=== PATIENT | male | born 1980 | race African-American/Black ===

== ENCOUNTER 2017-04-15 16:00 | Inpatient (IN) | payer SELFPAY ==
[~2017-04-15] VITALS: Ht 165.1 cm; Wt 92.1 kg
[2017-04-15 16:00] VITALS: O2SAT 97
[~2017-04-15 16:00] MED LIST: LACTATED RINGER'S 1000 ML INJ 2,000 ML IV ONE; NORMOSOL R INJ 3,000 ML IV ONE; PHENYLEPH/NS 1000 MCG/10 ML SYR IV ONE; PROPOFOL 200 MG/20 ML AMP IV ONE; SODIUM CHLOR 0.9% 250 ML INJ 250 ML IV ONE; SODIUM CHLORID 0.9% 500 ML INJ 500 ML IV ONE; VASOPRESSIN INJ 20 UNITS/ML VIAL IV ONE
[2017-04-15] MEDS ORDERED: MORPHINE SULFATE 8 MG/ML INJ ONE ×2 (16:05→16:12)
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
[2017-04-15] MEDS ORDERED: IOHEXOL 350 MG/ML 10 ML VIAL (for RAD DIAG) IV ONE (16:45)
[2017-04-15] MEDS ORDERED: HYDROmorphone HCL PF 1 MG/ML VIAL ONE (16:46)
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
[2017-04-15 16:57] LABS: I-STAT POTASSIUM 6.3 MMOL/L (3.5-4.9)
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
[2017-04-15] MEDS ORDERED: LACTATED RINGER'S 1000 ML INJ 1,000 ML IV SCH (17:07)
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
[2017-04-15] MEDS ORDERED: MISCELLANEOUS NURSING INFORMATION XX SCH (17:15)
[2017-04-15] MEDS ORDERED: CHLORHEXIDINE GLUCONATE 2 % 1 PACK (2 CLOTHS) TOP PRN (17:15)
[2017-04-15] MEDS ORDERED: SODIUM CHLORIDE 0.9% FLUSH 10 ML FLUSH IV FLUSH PRN (17:15)
[2017-04-15] MEDS ORDERED: MAGNESIUM HYDROXIDE SUSP 30 ML CUP PO PRN ×2 (17:15→19:00)
[2017-04-15] MEDS ORDERED: ONDANSETRON HCL 4 MG/2 ML VIAL IV PRN (17:15)
[2017-04-15 17:41] VITALS: RESP 18; O2SAT 100
[2017-04-15 17:43] VITALS: BP 145/81; PULSE 137; RESP 18; O2SAT 100
[2017-04-15] MEDS: HYDROmorphone HCL PF 1 MG/ML VIAL IVP PRN (17:45)
[2017-04-15 18:06] LABS: AUTOMATED NEUTROPHIL # 15.9 TH/MM3 (1.8-7.7); BASOPHIL # 0.1 TH/MM3 (0-0.2); BASOPHIL % 0.4 % (0.0-2.0); EOSINOPHIL % 0.1 % (0.0-4.0); HEMATOCRIT 45.5 % (39.0-51.0); LYMPH % 6.4 % (9.0-44.0); LYMPHOCYTE # 1.2 TH/MM3 (1.0-4.8); MEAN CORPUSCULAR HEMOGLOBIN 31.3 PG (27.0-34.0); MEAN CORPUSCULAR HGB CONC 32.7 % (32.0-36.0); MONO % 6.2 % (0.0-8.0); NEUT % 86.9 % (16.0-70.0); PLATELET COUNT 254 TH/MM3 (150-450); RED BLOOD COUNT 4.74 MIL/MM3 (4.50-5.90); RED CELL DISTRIBUTION WIDTH 14.1 % (11.6-17.2); WHITE BLOOD COUNT 18.4 TH/MM3 (4.0-11.0)
[2017-04-15 18:07] LABS: HEMO FLAGS AUTO DIFF
[2017-04-15] MEDS ORDERED: LORazepam 2 MG/ML VIAL IV PUSH ONE (18:30)
[2017-04-15 18:38] VITALS: BP 154/78; PULSE 144; RESP 18; O2SAT 99
[2017-04-15] MEDS ORDERED: GENTAMICIN SULFATE 80 MG/2 ML VIAL ONE ×2 (18:39→19:59)
[2017-04-15] MEDS ORDERED: SODIUM CHLORIDE 0.9% FLUSH 5 ML FLUSH IVF PRN (19:00)
[2017-04-15] MEDS ORDERED: ACETAMINOPHEN/HYDROcodone 325 MG/7.5 MG TAB PO PRN ×2 (19:00)
[2017-04-15] MEDS ORDERED: diphenhydrAMINE HCL 25 MG CAP PO PRN (19:00)
[2017-04-15] MEDS ORDERED: ONDANSETRON HCL 4 MG/2 ML VIAL IVP PRN (19:00)
[2017-04-15] MEDS ORDERED: MORPHINE SULFATE 30 MG/30 ML PCA IV SCH (19:00)
[2017-04-15] MEDS ORDERED: Post-op Orders (for Pharmacy) MISC XX ONE (19:00)
[2017-04-15] MEDS ORDERED: MISCELLANEOUS NURSING INFORMATION XX PRN (19:00)
[2017-04-15] MEDS ORDERED: MISCELLANEOUS PHARMACY INFORMATION XX ONE (19:00)
[2017-04-15] MEDS ORDERED: NALOXONE HCL 0.4 MG/ML AMP IV PRN (19:00)
[2017-04-15 19:05] LABS: SCAN/DIFF AUTO DIFF CONFIRMED
[2017-04-15 19:06] LABS: PLATELET ESTIMATE SMEAR NORMAL (NORMAL); PLATELET MORPHOLOGY CLUMPED (NORMAL)
[2017-04-15] MEDS ORDERED: HYDR-3288 PO (19:06)
[2017-04-15] MEDS ORDERED: VANCOMYCIN HCL 1000 MG VIAL ONE (19:48)
[2017-04-15 20:34] LABS: BLOOD GAS BASE EXCESS -8.6 mmol/L (-2-2); BLOOD GAS CARBOXYHEMOGLOBIN 3.8 % (0-4); BLOOD GAS HCO3 17 mmol/L (22-26); BLOOD GAS METHEMOGLOBIN 1.6 % (0-2); BLOOD GAS O2 HGB SATURATION 94 % (90-100); BLOOD GAS OXYGEN CONTENT 18.4 Vol % (12.0-20.0); BLOOD GAS PCO2 37 mmHg (38-42); BLOOD GAS PO2 231 mmHg (61-120); BLOOD GAS TOTAL HGB 13.6 G/DL (12.0-16.0); TEMP CORR TO 98.6
[2017-04-15 20:35] LABS: CRITICAL VALUE YES; FIO2 55 %; OXYGEN DEVICE O.R. GAS; STAT YES; VENT SETTINGS O.R. GAS
[2017-04-15] MEDS ORDERED: SODIUM BICARBONATE 8.4% INJ 50 MEQ/50 ML SYR ONE ×2 (20:38→21:55)
[2017-04-15 20:40] LABS: BICARBONATE 18.2 MEQ/L (21.0-32.0); POTASSIUM 4.7 MEQ/L (3.5-5.1)
[2017-04-15] MEDS ORDERED: DOCUSATE SODIUM 100 MG CAP PO SCH (21:00)
[2017-04-15 21:42] LABS: BLOOD GAS BASE EXCESS -6.6 mmol/L (-2-2); BLOOD GAS CARBOXYHEMOGLOBIN 3.4 % (0-4); BLOOD GAS HCO3 19 mmol/L (22-26); BLOOD GAS METHEMOGLOBIN 1.6 % (0-2); BLOOD GAS O2 HGB SATURATION 94 % (90-100); BLOOD GAS OXYGEN CONTENT 14.2 Vol % (12.0-20.0); BLOOD GAS PCO2 40 mmHg (38-42); BLOOD GAS PO2 210 mmHg (61-120); BLOOD GAS TOTAL HGB 10.4 G/DL (12.0-16.0); CRITICAL VALUE YES; OXYGEN DEVICE VENTILATOR; TEMP CORR TO 98.6; VENT SETTINGS OR SETTINGS
[2017-04-15 21:43] LABS: DRAW SITE ALINE; FIO2 60 %; STAT YES; ULNAR PULSE PRESENT
[2017-04-15] MEDS ORDERED: PCA - TOTAL MG MORPHINE DELIVERED PER SHIFT SCH (22:00)
[2017-04-15 22:22] LABS: APTT (PATIENT) 29.4 SEC (24.3-30.1); PROTHROMBIN TIME - PATIENT 11.6 SEC (9.8-11.6)
--- NOTE | 2017-04-15 22:22 | RADRPT ---
EXAM DATE/TIME: 04/15/2017 21:20 [facility] COMPARISON: PELVIS AP ONLY, April 15, 2017, 15:57. INDICATIONS : Right femur surgical repair. MEDICAL HISTORY : None. SURGICAL HISTORY : None. ENCOUNTER: Initial ACUITY: 1 day PAIN SCORE: Non-responsive. LOCATION: Right femur. FINDINGS: Multiple coned down views of the femur were obtained intraoperatively using a matrix camera and demon strate placement of intramedullary jodi transfixing the mid femoral fracture. The fracture fragments a re in near-anatomic alignment. There is a lag-type screw transfixing the right femoral neck fracture. Fracture fragment is in near-anatomic alignment. CONCLUSION: Status post open rigid internal fixation. Adrien León MD on April 15, 2017 at 22:19 Board Certified Radiologist. This report was verified electronically.
[2017-04-15] MEDS ORDERED: PROPOFOL 1000 MG/100 ML INJ 100 ML ONE (22:51)
[2017-04-15 23:02] VITALS: O2SAT 100
[2017-04-15] MEDS ORDERED: DO NOT ADM ANY ANTICOAGULANT DRUGS PRN (23:05)
[2017-04-15] MEDS ORDERED: fentaNYL CITRATE 250 MCG/5 ML AMP ONE (23:17)
[2017-04-15] MEDS ORDERED: *morphine SULFATE 8 MG/ML PERIprocedure ONLY ONE ×2 (23:18→23:42)
[2017-04-15] MEDS: DEXT 5%-NACL 0.45% 1000 ML INJ 1,000 ML IV SCH (23:20)
[2017-04-15] MEDS: SODIUM CHLORIDE 0.9% FLUSH 5 ML FLUSH IVF SCH (23:30)
[2017-04-15 23:35] LABS: BLOOD GAS CARBOXYHEMOGLOBIN 2.2 % (0-4); BLOOD GAS HCO3 20 mmol/L (22-26); BLOOD GAS METHEMOGLOBIN 1.4 % (0-2); BLOOD GAS O2 HGB SATURATION 94 % (90-100); BLOOD GAS OXYGEN CONTENT 17.5 Vol % (12.0-20.0); BLOOD GAS PCO2 42 mmHg (38-42); BLOOD GAS PO2 114 mmHg (61-120); BLOOD GAS TOTAL HGB 13.1 G/DL (12.0-16.0); CRITICAL VALUE YES; OXYGEN DEVICE VENTILATOR; TEMP CORR TO 98.6
[2017-04-15 23:36] LABS: DRAW SITE ART LINE; FIO2 40 %; STAT NO; VENT SETTINGS A/C12/600/+5PEEP
[2017-04-15] MEDS ORDERED: PROPOFOL 1000 MG/100 ML IV SCH (23:45)
[2017-04-15] MEDS: PROPOFOL 1000 MG/100 ML IV SCH (23:59)
[2017-04-16] VITALS (18 sets, daily range): BP systolic 130–159; BP diastolic 71–85; PULSE 112–132; RESP 12–21; TEMP 98.5–99.3; O2SAT 97–100
[2017-04-16] MEDS ORDERED: *morphine SULFATE 8 MG/ML PERIprocedure ONLY ONE (00:05)
--- NOTE | 2017-04-16 00:13 | RADRPT ---
EXAM DATE/TIME: 04/15/2017 23:49 [facility] COMPARISON: CHEST SINGLE AP, April 15, 2017, 15:57. INDICATIONS : Post intubation, following femur surgery. MEDICAL HISTORY : None. SURGICAL HISTORY : None. ENCOUNTER: Initial ACUITY: 1 day PAIN SCORE: Non-responsive. LOCATION: Bilateral chest FINDINGS: A single view of the chest demonstrates the lungs to be symmetrically aerated without evidence of mas s, infiltrate or effusion. The cardiomediastinal contours are unremarkable. Osseous structures are intact. CONCLUSION: Normal examination. The endotracheal tube has been placed with its tip at the level of the parish. Reggie Waggoner MD on April 16, 2017 at 0:11 Board Certified Radiologist. This report was verified electronically.
[2017-04-16] MEDS: PROPOFOL 1000 MG/100 ML IV SCH (03:14)
[2017-04-16 03:58] LABS: AUTOMATED NEUTROPHIL # 6.2 TH/MM3 (1.8-7.7); BASOPHIL % 0.2 % (0.0-2.0); HEMATOCRIT 39.8 % (39.0-51.0); HEMO FLAGS DIFF FINAL; LYMPH % 13.8 % (9.0-44.0); LYMPHOCYTE # 1.1 TH/MM3 (1.0-4.8); MEAN CELL VOLUME 91.6 FL (80.0-100.0); MEAN CORPUSCULAR HEMOGLOBIN 31.7 PG (27.0-34.0); MEAN CORPUSCULAR HGB CONC 34.7 % (32.0-36.0); MONO % 8.9 % (0.0-8.0); NEUT % 77.1 % (16.0-70.0); PLATELET COUNT 177 TH/MM3 (150-450); RED BLOOD COUNT 4.35 MIL/MM3 (4.50-5.90); RED CELL DISTRIBUTION WIDTH 14.6 % (11.6-17.2)
[2017-04-16] MEDS: CHLORHEXIDINE GLUCONATE 2 % 1 PACK (2 CLOTHS) TOP SCH (04:00)
[2017-04-16 04:21] LABS: BICARBONATE 27.1 MEQ/L (21.0-32.0); POTASSIUM 4.6 MEQ/L (3.5-5.1)
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
[2017-04-16 04:44] LABS: CALCIUM-PROTEIN CORRECTED 8.3 MG/DL (8.5-10.1)
[2017-04-16] MEDS ORDERED: fentaNYL DRIP 250 ML IV SCH (05:15)
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
[2017-04-16] MEDS: DEXT 5%-NACL 0.45% 1000 ML INJ 1,000 ML IV SCH ×2 (06:21→16:26)
--- NOTE | 2017-04-16 07:11 | PD.ORT.PN ---
Subjective Subjective Remarks Intubated and sedated Objective Vitals Vital Signs Date Time Temp Pulse Resp B/P Pulse Ox O2 Delivery O2 Flow Rate FiO2 04/16/17 06:00 116 04/16/17 05:23 100 40 04/16/17 04:00 115 04/16/17 04:00 98.5 115 12 130/71 100 04/16/17 02:00 118 04/16/17 01:28 100 04/16/17 01:00 98.7 122 12 155/79 100 04/16/17 01:00 124 04/16/17 00:35 100 40 04/16/17 00:15 40 04/16/17 00:15 123 12 168/77 100 Mechanical Ventilator 40 170/81 04/16/17 00:00 99.0 125 12 166/74 100 Mechanical Ventilator 40 174/79 04/15/17 23:45 127 12 154/72 100 Mechanical Ventilator 40 167/73 04/15/17 23:30 127 13 159/74 100 Mechanical Ventilator 40 137/75 04/15/17 23:15 124 16 141/62 100 Mechanical Ventilator 40 149/71 04/15/17 23:05 40 04/15/17 23:05 98.5 117 14 139/61 100 Mechanical Ventilator 40 04/15/17 23:02 100 40 04/15/17 18:38 144 18 154/78 99 Room Air 04/15/17 17:43 137 18 145/81 100 Nasal Cannula 2 04/15/17 17:41 18 100 Room Air 04/15/17 17:41 99 Nasal Cannula 2 04/15/17 16:00 97 2.00 I/O 04/15/17 04/15/17 04/15/17 04/16/17 04/16/17 04/16/17 07:00 15:00 23:00 07:00 15:00 23:00 Intake Total 6379 ml Output Total 4350 ml Balance 2029 ml Intake Oral 0 ml IV Total 1479 ml Packed Cells 500 ml Other 4400 ml Output Urine Total 3050 ml Estimated Blood Loss 700 ml Other 600 ml Result Diagram: 04/16/17 0332 04/16/17 0332 Other Results Laboratory Tests Test 04/15/17 21:45 Prothrombin Time 11.6 SEC (9.8-11.6) Prothromb Time International 1.0 RATIO Ratio Imaging Last 24 hours Impressions Pelvis X-Ray 04/15/171620 Signed Impressions: Service Date/Time: Saturday, April 15, 2017 15:57 - CONCLUSION: Right femoral neck fracture. Vinicius Mccray MD Head CT 04/15/171620 Signed Impressions: Service Date/Time: Saturday, April 15, 2017 16:34 - CONCLUSION: 1. Chronic sinusitis. 2. No acute intracranial process, trauma or fracture. Vinicius Mccray MD Chest X-Ray 04/15/171620 Signed Impressions: Service Date/Time: Saturday, April 15, 2017 15:57 - CONCLUSION: No acute cardiopulmonary process. Vinicius Mccray MD Chest CT 04/15/171620 Signed Impressions: Service Date/Time: Saturday, April 15, 2017 16:40 - CONCLUSION: 1. Patchy air space disease in the superior segment of both lower lobes, left worse than right. Findings are nonspecific and could represent pulmonary parenchymal contusions or early aspiration. 2. No acute thoracic fracture. Mediastinal vasculature is all intact. Vinicius Mccray MD Cervical Spine CT 04/15/171620 Signed Impressions: Service Date/Time: Saturday, April 15, 2017 16:34 - CONCLUSION: 1. Mild multilevel degenerative disc disease from C4-5 through C6-7 with some loss of height and marginal spurring. 2. No acute fracture or listhesis. Vinicius Mccray MD Abdomen/Pelvis CT 04/15/171620 Signed Impressions: Service Date/Time: Saturday, April 15, 2017 16:40 - CONCLUSION: 1. Displaced, simple fracture through the right femoral neck with apparent multiple fractures of the right hand and wrist. 2. Patchy airspace disease in the superior segments of both lower lobes. Findings are nonspecific and could represent pulmonary parenchymal contusion or early aspiration. 3. No acute abdominal or pelvic visceral trauma. Vinicius Mccray MD Objective Remarks Patient is intubated and sedated Right upper extremity: Clean dry dressings intact. Good capillary refills. Unable to assess active movement or sensation Right lower extremity: Clean dry dressings intact. Compartments with swelling but soft. Distally intact sensation good capillary refills Left upper extremity: No crepitus or deformity with range of motion. Good distal pulses and capillary refills Left lower extremity: No deformity with range of motion of hip knee or ankle. Intact distal pulses and capillary refills Assessment & Plan Assessment and Plan Right open forearm fracture with irrigation debridement and splinting POD 1 Maintain splint and plan for surgery tomorrow with Dr. Biswas on 04/16/2017 Right femoral neck and femoral shaft fractures status post intramedullary nail fixation POD [address] German Nonweightbearing right lower extremity Daily dressing changes beginning POD 2 Nothing by mouth after midnight for surgery of right forearm Sign consents Patient's right forearm marked Adrien Paris Jr. Apr 16, 2017 07:11
[2017-04-16] MEDS: HYDROmorphone HCL PF 1 MG/ML VIAL IVP PRN ×3 (07:59→18:45)
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
[2017-04-16] MEDS: DOCUSATE SODIUM 50 MG/SENNA 8.6 MG TAB PO SCH ×3 (11:44→20:46)
[2017-04-16] MEDS: SODIUM CHLORIDE 0.9% FLUSH 5 ML FLUSH IVF SCH ×2 (11:45→20:46)
[2017-04-16] MEDS: MULTIVITAMINS/MINERALS THERAPEUTIC TAB PO SCH (11:45)
[2017-04-16] MEDS: BACITRACIN TOP OINT 15 GM TUBE TOP SCH ×3 (11:45→20:47)
[2017-04-16] MEDS ORDERED: RESP: ALBUTEROL 2.5 MG/3 ML NEB (PRN) NEB (12:45)
[2017-04-16] MEDS ORDERED: GLUCAGON 1 MG/ML VIAL OTHER PRN (13:00)
[2017-04-16] MEDS ORDERED: DEXTROSE 50% IN WATER 50 ML VIAL(D50) IV PRN (13:00)
--- NOTE | 2017-04-16 13:01 | PD.ORT.PN ---
Subjective Post Op Day #: 1 Subjective Remarks hard time getting comfortable. doing ok. extubated earlier today. Objective Vitals Vital Signs Date Time Temp Pulse Resp B/P Pulse Ox O2 Delivery O2 Flow Rate FiO2 04/16/17 12:00 121 04/16/17 12:00 98.5 121 21 142/75 98 04/16/17 10:45 15 04/16/17 10:00 121 04/16/17 09:36 99 Nasal Cannula 4.00 04/16/17 09:36 99 Nasal Cannula 4 04/16/17 08:50 100 40 04/16/17 08:00 112 04/16/17 08:00 40 04/16/17 08:00 99.3 112 12 139/73 100 04/16/17 07:25 100 40 04/16/17 07:00 100 Mechanical Ventilator 40 04/16/17 06:00 116 04/16/17 05:23 100 40 04/16/17 04:00 115 04/16/17 04:00 98.5 115 12 130/71 100 04/16/17 02:00 118 04/16/17 01:28 100 04/16/17 01:00 98.7 122 12 155/79 100 04/16/17 01:00 40 04/16/17 01:00 124 04/16/17 00:35 100 40 04/16/17 00:15 40 04/16/17 00:15 123 12 168/77 100 Mechanical Ventilator 40 170/81 04/16/17 00:00 99.0 125 12 166/74 100 Mechanical Ventilator 40 174/79 04/15/17 23:45 127 12 154/72 100 Mechanical Ventilator 40 167/73 04/15/17 23:30 127 13 159/74 100 Mechanical Ventilator 40 137/75 04/15/17 23:15 124 16 141/62 100 Mechanical Ventilator 40 149/71 04/15/17 23:05 40 04/15/17 23:05 98.5 117 14 139/61 100 Mechanical Ventilator 40 04/15/17 23:02 100 40 04/15/17 18:38 144 18 154/78 99 Room Air 04/15/17 17:43 137 18 145/81 100 Nasal Cannula 2 04/15/17 17:41 18 100 Room Air 04/15/17 17:41 99 Nasal Cannula 2 04/15/17 16:00 97 Nasal Cannula 2.00 04/15/17 16:00 97 2.00 I/O 04/15/17 04/15/17 04/15/17 04/16/17 04/16/17 04/16/17 07:00 15:00 23:00 07:00 15:00 23:00 Intake Total 6379 ml Output Total 4350 ml Balance 2029 ml Intake Oral 0 ml IV Total 1479 ml Packed Cells 500 ml Other 4400 ml Output Urine Total 3050 ml Estimated Blood Loss 700 ml Other 600 ml Result Diagram: 04/16/17 0332 04/16/17 0332 Other Results Laboratory Tests Test 04/15/17 21:45 Prothrombin Time 11.6 SEC (9.8-11.6) Prothromb Time International 1.0 RATIO Ratio Imaging Last 24 hours Impressions Pelvis X-Ray 04/15/171620 Signed Impressions: Service Date/Time: Saturday, April 15, 2017 15:57 - CONCLUSION: Right femoral neck fracture. Vinicius Mccray MD Head CT 04/15/171620 Signed Impressions: Service Date/Time: Saturday, April 15, 2017 16:34 - CONCLUSION: 1. Chronic sinusitis. 2. No acute intracranial process, trauma or fracture. Vinicius Mccray MD Chest X-Ray 04/15/171620 Signed Impressions: Service Date/Time: Saturday, April 15, 2017 15:57 - CONCLUSION: No acute cardiopulmonary process. Vinicius Mccray MD Chest CT 04/15/171620 Signed Impressions: Service Date/Time: Saturday, April 15, 2017 16:40 - CONCLUSION: 1. Patchy air space disease in the superior segment of both lower lobes, left worse than right. Findings are nonspecific and could represent pulmonary parenchymal contusions or early aspiration. 2. No acute thoracic fracture. Mediastinal vasculature is all intact. Vinicius Mccray MD Cervical Spine CT 04/15/171620 Signed Impressions: Service Date/Time: Saturday, April 15, 2017 16:34 - CONCLUSION: 1. Mild multilevel degenerative disc disease from C4-5 through C6-7 with some loss of height and marginal spurring. 2. No acute fracture or listhesis. Vinicius Mccray MD Abdomen/Pelvis CT 7/9/17 1621 Signed Impressions: Service Date/Time: Saturday, April 15, 2017 16:40 - CONCLUSION: 1. Displaced, simple fracture through the right femoral neck with apparent multiple fractures of the right hand and wrist. 2. Patchy airspace disease in the superior segments of both lower lobes. Findings are nonspecific and could represent pulmonary parenchymal contusion or early aspiration. 3. No acute abdominal or pelvic visceral trauma. Vinicius Mccray MD Objective Remarks in bed, nad Right upper extremity: Clean dry dressings intact. Good capillary refills. able to flex/extend all 5 fingers, sensation intact Right lower extremity: Clean dry dressings intact. Compartments with swelling but soft. Distally intact sensation good capillary refills Left upper extremity: No crepitus or deformity with range of motion. Good distal pulses and capillary refills Left lower extremity: No deformity with range of motion of hip knee or ankle. Intact distal pulses and capillary refills Assessment & Plan Ortho Post Op Day #: 1 Problem List: Assessment and Plan Right open forearm fracture with irrigation debridement and splinting POD 1 Maintain splint and plan for surgery tomorrow with Dr. Biswas on 04/16/2017 Right femoral neck and femoral shaft fractures status post intramedullary nail fixation POD [address] German Nonweightbearing right lower extremity Daily dressing changes beginning POD 2 Nothing by mouth after midnight for surgery of right forearm Sign consents med management Brant Preciado Apr 16, 2017 13:01
--- NOTE | 2017-04-16 13:08 | HHI.CCPN ---
Subjective 24 Hour Review/Hospital Course S/p [facility] [place] 1 Closed right femoral neck fracture Open right femoral midshaft fracture Right knee laceration - repaired by Dr. German 04/15 I&D and ORIF with IM nail right femoral shaft, ORIF right femoral neck 04/15 Dr. German Open displaced right ulnar fracture - open reduction right distal radius and ulnar fracture with I and D and splint placment 04/15 Dr. German , Closed right distal radius fracture ORIF R wrist plan by ortho SBT/SBA stable overall CCM working on extubation Objective Vital Signs Date Time Temp Pulse Resp B/P Pulse Ox O2 Delivery O2 Flow Rate FiO2 04/16/17 12:00 121 04/16/17 12:00 98.5 21 142/75 98 04/16/17 09:36 Nasal Cannula 4.00 04/16/17 08:50 40 Intake and Output 04/15/17 04/15/17 04/16/17 08:00 16:00 00:00 Intake Total 5500 ml Output Total 2450 ml Balance 3050 ml Result Diagram: 04/16/17 0332 04/16/17 0332 Other Results Laboratory Tests Test 04/15/17 04/15/17 04/15/17 20:15 21:25 23:21 Blood Gas Puncture Site REYNALDO ART LINE Blood Gas Patient Temperature 98.6 98.6 98.6 Blood Gas HCO3 17 mmol/L 19 mmol/L 20 mmol/L (22-26) (22-26) (22-26) Blood Gas Base Excess -8.6 mmol/L -6.6 mmol/L -6.0 mmol/L (-2-2) (-2-2) (-2-2) Blood Gas Oxygen Saturation 94 % (90-100) 94 % (90-100) 94 % (90-100) Arterial Blood pH 7.28 7.29 7.29 (7.380-7.420) (7.380-7.420) (7.380-7.420) Arterial Blood Partial 37 mmHg (38-42) 40 mmHg (38-42) 42 mmHg (38-42) Pressure CO2 Arterial Blood Partial 231 mmHg 210 mmHg 114 mmHg Pressure O2 (61-120) (61-120) (61-120) Arterial Blood Oxygen Content 18.4 Vol % 14.2 Vol % 17.5 Vol % (12.0-20.0) (12.0-20.0) (12.0-20.0) Arterial Blood 3.8 % (0-4) 3.4 % (0-4) 2.2 % (0-4) Carboxyhemoglobin Arterial Blood Methemoglobin 1.6 % (0-2) 1.6 % (0-2) 1.4 % (0-2) Blood Gas Hemoglobin 13.6 G/DL 10.4 G/DL 13.1 G/DL (12.0-16.0) (12.0-16.0) (12.0-16.0) Oxygen Delivery Device O.R. GAS VENTILATOR VENTILATOR Blood Gas Ventilator Setting O.R. GAS OR SETTINGS A/C12/600/+5PEEP Blood Gas Inspired Oxygen 55 % 60 % 40 % Imaging Last 24 hours Impressions Pelvis X-Ray 04/15/171620 Signed Impressions: Service Date/Time: Saturday, April 15, 2017 15:57 - CONCLUSION: Right femoral neck fracture. Vinicius Mccray MD Head CT 04/15/171620 Signed Impressions: Service Date/Time: Saturday, April 15, 2017 16:34 - CONCLUSION: 1. Chronic sinusitis. 2. No acute intracranial process, trauma or fracture. Vinicius Mccray MD Chest X-Ray 04/15/171620 Signed Impressions: Service Date/Time: Saturday, April 15, 2017 15:57 - CONCLUSION: No acute cardiopulmonary process. Vinicius Mccray MD Chest CT 04/15/171620 Signed Impressions: Service Date/Time: Saturday, April 15, 2017 16:40 - CONCLUSION: 1. Patchy air space disease in the superior segment of both lower lobes, left worse than right. Findings are nonspecific and could represent pulmonary parenchymal contusions or early aspiration. 2. No acute thoracic fracture. Mediastinal vasculature is all intact. Vinicius Mccray MD Cervical Spine CT 04/15/171620 Signed Impressions: Service Date/Time: Saturday, April 15, 2017 16:34 - CONCLUSION: 1. Mild multilevel degenerative disc disease from C4-5 through C6-7 with some loss of height and marginal spurring. 2. No acute fracture or listhesis. Vinicius Mccray MD Abdomen/Pelvis CT 7/9/17 1621 Signed Impressions: Service Date/Time: Saturday, April 15, 2017 16:40 - CONCLUSION: 1. Displaced, simple fracture through the right femoral neck with apparent multiple fractures of the right hand and wrist. 2. Patchy airspace disease in the superior segments of both lower lobes. Findings are nonspecific and could represent pulmonary parenchymal contusion or early aspiration. 3. No acute abdominal or pelvic visceral trauma. Vinicius Mccray MD Exam DIRECTOR OF MARKETING GCS 11 T Hemodynamic/Cardiac BP -stable Pulmonary/Respiratory CPAP/PS Abdomen/GI Nutrition NPO-diet after extubation Renal/I&O uo adequat Urinary Catheter Assessment Urinary Catheter: Yes Assessment to: Remove Assessment and Plan Plan multiple open orthopedic injuries s/p ORIF femur fx planned ORIF left wrist Extubate in am Pain control DVT prophylaxis ABX for open fx Plan transfer floor later in AM Nay Whitfield MD Apr 16, 2017 13:08
[2017-04-16] MEDS ORDERED: LORazepam 0.5 MG TAB PO ONE (16:30)
[2017-04-16] MEDS: INSULIN ASPART SUPPLEMENTAL SCALE SQ SCH ×2 (17:51→20:46)
[2017-04-16] MEDS ORDERED: MORPHINE SULFATE 4 MG/ML INJ IV PUSH PRN (18:00)
[2017-04-16] MEDS: FAMOTIDINE 20 MG TAB PO SCH (20:46)
[2017-04-16] MEDS ORDERED: ENOXAPARIN SODIUM 40 MG/0.4 ML SYRINGE SQ SCH (22:00)
[2017-04-17] VITALS (16 sets, daily range): BP systolic 128–164; BP diastolic 62–77; PULSE 91–130; RESP 24–28; TEMP 98.8–99.6; O2SAT 93–100
[2017-04-17] MEDS: CHLORHEXIDINE GLUCONATE 2 % 1 PACK (2 CLOTHS) TOP SCH (04:00)
--- NOTE | 2017-04-17 05:52 | RADRPT ---
EXAM DATE/TIME: 04/17/2017 04:56 [place] COMPARISON: CHEST SINGLE AP, April 15, 2017, 23:49. INDICATIONS : Short of breath. MEDICAL HISTORY : None. SURGICAL HISTORY : None. ENCOUNTER: Subsequent ACUITY: 3 days PAIN SCORE: Non-responsive. LOCATION: Bilateral chest FINDINGS: Mild bibasilar atelectasis noted. No pleural effusion or pneumothorax. Endotracheal tube has been rem marian. Normal, stable heart size. CONCLUSION: Interim extubation. Trace bibasilar atelectasis. Sam Rogers MD on April 17, 2017 at 5:50 Board Certified Radiologist. This report was verified electronically.
[2017-04-17 06:33] LABS: AUTOMATED NEUTROPHIL # 7.9 TH/MM3 (1.8-7.7); BASOPHIL % 0.3 % (0.0-2.0); EOSINOPHIL # 0.1 TH/MM3 (0-0.4); EOSINOPHIL % 0.6 % (0.0-4.0); HEMATOCRIT 32.9 % (39.0-51.0); HEMO FLAGS DIFF FINAL; LYMPH % 11.9 % (9.0-44.0); LYMPHOCYTE # 1.2 TH/MM3 (1.0-4.8); MEAN CELL VOLUME 92.8 FL (80.0-100.0); MEAN CORPUSCULAR HEMOGLOBIN 31.5 PG (27.0-34.0); MEAN CORPUSCULAR HGB CONC 33.9 % (32.0-36.0); MONO % 9.7 % (0.0-8.0); NEUT % 77.5 % (16.0-70.0); PLATELET COUNT 155 TH/MM3 (150-450); RED BLOOD COUNT 3.54 MIL/MM3 (4.50-5.90); RED CELL DISTRIBUTION WIDTH 14.9 % (11.6-17.2); WHITE BLOOD COUNT 10.2 TH/MM3 (4.0-11.0)
[2017-04-17 06:48] LABS: ALKALINE PHOSPHATASE 47 U/L (45-117); ALT (GPT) 77 U/L (12-78); ANION GAP 4 MEQ/L (5-15); AST (GOT) 348 U/L (15-37); BICARBONATE 25.7 MEQ/L (21.0-32.0); BLOOD UREA NITROGEN 8 MG/DL (7-18); CHLORIDE 104 MEQ/L (98-107); GLOMERULAR FILTRATION RATE 101 ML/MIN (>89); POTASSIUM 4.1 MEQ/L (3.5-5.1); SODIUM (NA) 134 MEQ/L (136-145); TOTAL BILIRUBIN ADULT 0.6 MG/DL (0.2-1.0)
[2017-04-17 06:51] LABS: APTT (PATIENT) 35.2 SEC (24.3-30.1); PROTHROMBIN TIME - PATIENT 11.2 SEC (9.8-11.6)
[2017-04-17] MEDS: INSULIN ASPART SUPPLEMENTAL SCALE SQ SCH ×4 (07:00→21:00)
[2017-04-17] MEDS: ENOXAPARIN SODIUM 30 MG/0.3 ML SYRINGE SQ SCH ×2 (07:21→20:35)
[2017-04-17] MEDS: MULTIVITAMINS/MINERALS THERAPEUTIC TAB PO SCH (07:46)
[2017-04-17] MEDS: DOCUSATE SODIUM 50 MG/SENNA 8.6 MG TAB PO SCH ×2 (07:46→20:35)
[2017-04-17] MEDS: SODIUM CHLORIDE 0.9% FLUSH 5 ML FLUSH IVF SCH ×2 (07:47→20:35)
[2017-04-17] MEDS: FAMOTIDINE 20 MG TAB PO SCH ×2 (07:47→20:35)
[2017-04-17] MEDS: HYDROmorphone HCL PF 1 MG/ML VIAL IVP PRN (07:47)
--- NOTE | 2017-04-17 07:51 | PD.ORT.PN ---
Subjective Subjective Remarks Awake and alert Stable with no new complaints Objective Vitals Vital Signs Date Time Temp Pulse Resp B/P Pulse Ox O2 Delivery O2 Flow Rate FiO2 04/17/17 07:22 97 Nasal Cannula 2.00 04/17/17 06:00 122 04/17/17 04:58 20 04/17/17 04:00 130 04/17/17 04:00 99.2 130 24 164/74 97 04/17/17 02:00 124 04/17/17 00:00 99.2 130 24 162/77 97 04/17/17 00:00 130 04/16/17 22:00 126 04/16/17 22:00 20 04/16/17 20:48 97 Nasal Cannula 2.00 04/16/17 20:00 132 04/16/17 20:00 99.2 132 21 159/77 97 04/16/17 19:15 26 04/16/17 19:00 96 Nasal Cannula 2.00 04/16/17 16:00 98.6 124 17 149/85 98 Arterial Line 04/16/17 16:00 124 04/16/17 14:00 16 04/16/17 14:00 124 04/16/17 14:00 16 04/16/17 12:00 121 04/16/17 12:00 98.5 121 21 142/75 98 04/16/17 10:45 15 04/16/17 10:00 121 04/16/17 09:36 99 Nasal Cannula 4.00 04/16/17 09:36 99 Nasal Cannula 4 04/16/17 08:50 100 40 04/16/17 08:00 112 04/16/17 08:00 40 04/16/17 08:00 99.3 112 12 139/73 100 I/O 04/16/17 04/16/17 04/16/17 04/17/17 04/17/17 04/17/17 07:00 15:00 23:00 07:00 15:00 23:00 Intake Total 6379 ml 1164 ml 1006 ml 284 ml Output Total 4350 ml 400 ml 500 ml 625 ml Balance 2029 ml 764 ml 506 ml -341 ml Intake Oral 0 ml 350 ml 240 ml IV Total 1479 ml 814 ml 766 ml 284 ml Packed Cells 500 ml Other 4400 ml Output Urine Total 3050 ml 400 ml 500 ml 625 ml Estimated Blood Loss 700 ml Other 600 ml Result Diagram: 04/17/17 0557 04/17/17 0557 Other Results Laboratory Tests Test 04/17/17 05:57 Prothrombin Time 11.2 SEC (9.8-11.6) Prothromb Time International 1.0 RATIO Ratio Imaging Last 24 hours Impressions Pelvis X-Ray 04/15/171620 Signed Impressions: Service Date/Time: Saturday, April 15, 2017 15:57 - CONCLUSION: Right femoral neck fracture. Vinicius Mccray MD Head CT 04/15/171620 Signed Impressions: Service Date/Time: Saturday, April 15, 2017 16:34 - CONCLUSION: 1. Chronic sinusitis. 2. No acute intracranial process, trauma or fracture. Vinicius Mccray MD Chest X-Ray 04/15/171620 Signed Impressions: Service Date/Time: Saturday, April 15, 2017 15:57 - CONCLUSION: No acute cardiopulmonary process. Vinicius Mccray MD Chest CT 04/15/171620 Signed Impressions: Service Date/Time: Saturday, April 15, 2017 16:40 - CONCLUSION: 1. Patchy air space disease in the superior segment of both lower lobes, left worse than right. Findings are nonspecific and could represent pulmonary parenchymal contusions or early aspiration. 2. No acute thoracic fracture. Mediastinal vasculature is all intact. Vinicius Mccray MD Cervical Spine CT 04/15/171620 Signed Impressions: Service Date/Time: Saturday, April 15, 2017 16:34 - CONCLUSION: 1. Mild multilevel degenerative disc disease from C4-5 through C6-7 with some loss of height and marginal spurring. 2. No acute fracture or listhesis. Vinicius Mccray MD Abdomen/Pelvis CT 04/15/171620 Signed Impressions: Service Date/Time: Saturday, April 15, 2017 16:40 - CONCLUSION: 1. Displaced, simple fracture through the right femoral neck with apparent multiple fractures of the right hand and wrist. 2. Patchy airspace disease in the superior segments of both lower lobes. Findings are nonspecific and could represent pulmonary parenchymal contusion or early aspiration. 3. No acute abdominal or pelvic visceral trauma. Vinicius Mccray MD Objective Remarks in bed, nad Right upper extremity: Clean dry dressings intact. Good capillary refills. able to flex/extend all 5 fingers, sensation intact Right lower extremity: Clean dry dressings intact. Compartments with swelling but soft. Distally intact sensation good capillary refills Left upper extremity: No crepitus or deformity with range of motion. Good distal pulses and capillary refills Left lower extremity: No deformity with range of motion of hip knee or ankle. Intact distal pulses and capillary refills Assessment & Plan Assessment and Plan Right open forearm fracture with irrigation debridement and splinting POD 2 Maintain splint and plan for surgery today with Dr. Biswas Right femoral neck and femoral shaft fractures status post intramedullary nail fixation POD [address] German Nonweightbearing right lower extremity Daily dressing changes beginning POD 2 Nothing by mouth Sign consents med management Adrien Paris Jr. Apr 17, 2017 07:51
[2017-04-17] MEDS: BACITRACIN TOP OINT 15 GM TUBE TOP SCH ×3 (08:27→21:00)
--- NOTE | 2017-04-17 09:30 | PD.ORT.PN ---
Subjective Post Op Day #: 2 Subjective Remarks hard time getting comfortable. doing ok. sx scheduled for today for R arm Objective Vitals Vital Signs Date Time Temp Pulse Resp B/P Pulse Ox O2 Delivery O2 Flow Rate FiO2 04/17/17 08:00 95 Nasal Cannula 2.00 04/17/17 07:22 97 Nasal Cannula 2.00 04/17/17 06:00 122 04/17/17 04:58 20 04/17/17 04:00 130 04/17/17 04:00 99.2 130 24 164/74 97 04/17/17 02:00 124 04/17/17 00:00 99.2 130 24 162/77 97 04/17/17 00:00 130 04/16/17 22:00 126 04/16/17 22:00 20 04/16/17 20:48 97 Nasal Cannula 2.00 04/16/17 20:00 132 04/16/17 20:00 99.2 132 21 159/77 97 04/16/17 19:15 26 04/16/17 19:00 96 Nasal Cannula 2.00 04/16/17 16:00 98.6 124 17 149/85 98 Arterial Line 04/16/17 16:00 124 04/16/17 14:00 16 04/16/17 14:00 124 04/16/17 14:00 16 04/16/17 12:00 121 04/16/17 12:00 98.5 121 21 142/75 98 04/16/17 10:45 15 04/16/17 10:00 121 04/16/17 09:36 99 Nasal Cannula 4.00 04/16/17 09:36 99 Nasal Cannula 4 I/O 04/16/17 04/16/17 04/16/17 04/17/17 04/17/17 04/17/17 07:00 15:00 23:00 07:00 15:00 23:00 Intake Total 6379 ml 1164 ml 1006 ml 284 ml Output Total 4350 ml 400 ml 500 ml 625 ml Balance 2029 ml 764 ml 506 ml -341 ml Intake Oral 0 ml 350 ml 240 ml IV Total 1479 ml 814 ml 766 ml 284 ml Packed Cells 500 ml Other 4400 ml Output Urine Total 3050 ml 400 ml 500 ml 625 ml Estimated Blood Loss 700 ml Other 600 ml Result Diagram: 04/17/17 0557 04/17/17 0557 Other Results Laboratory Tests Test 04/17/17 05:57 Prothrombin Time 11.2 SEC (9.8-11.6) Prothromb Time International 1.0 RATIO Ratio Imaging Last 24 hours Impressions Pelvis X-Ray 04/15/171620 Signed Impressions: Service Date/Time: Saturday, April 15, 2017 15:57 - CONCLUSION: Right femoral neck fracture. Vinicius Mccray MD Head CT 04/15/171620 Signed Impressions: Service Date/Time: Saturday, April 15, 2017 16:34 - CONCLUSION: 1. Chronic sinusitis. 2. No acute intracranial process, trauma or fracture. Vinicius Mccray MD Chest X-Ray 04/15/171620 Signed Impressions: Service Date/Time: Saturday, April 15, 2017 15:57 - CONCLUSION: No acute cardiopulmonary process. Vinicius Mccray MD Chest CT 04/15/171620 Signed Impressions: Service Date/Time: Saturday, April 15, 2017 16:40 - CONCLUSION: 1. Patchy air space disease in the superior segment of both lower lobes, left worse than right. Findings are nonspecific and could represent pulmonary parenchymal contusions or early aspiration. 2. No acute thoracic fracture. Mediastinal vasculature is all intact. Vinicius Mccray MD Cervical Spine CT 04/15/171620 Signed Impressions: Service Date/Time: Saturday, April 15, 2017 16:34 - CONCLUSION: 1. Mild multilevel degenerative disc disease from C4-5 through C6-7 with some loss of height and marginal spurring. 2. No acute fracture or listhesis. Vinicius Mccray MD Abdomen/Pelvis CT 04/15/171620 Signed Impressions: Service Date/Time: Saturday, April 15, 2017 16:40 - CONCLUSION: 1. Displaced, simple fracture through the right femoral neck with apparent multiple fractures of the right hand and wrist. 2. Patchy airspace disease in the superior segments of both lower lobes. Findings are nonspecific and could represent pulmonary parenchymal contusion or early aspiration. 3. No acute abdominal or pelvic visceral trauma. Vinicius Mccray MD Objective Remarks in bed, nad Right upper extremity: Clean dry dressings intact. Good capillary refills. able to flex/extend all 5 fingers, sensation intact Right lower extremity: Clean dry dressings intact. Compartments with swelling but soft. Distally intact sensation good capillary refills Left upper extremity: No crepitus or deformity with range of motion. Good distal pulses and capillary refills Left lower extremity: No deformity with range of motion of hip knee or ankle. Intact distal pulses and capillary refills Assessment & Plan Ortho Post Op Day #: 2 Problem List: Assessment and Plan Right open forearm fracture with irrigation debridement and splinting POD 2 Maintain splint and plan for surgery today with Dr. Anaya Right femoral neck and femoral shaft fractures status post intramedullary nail fixation; I&D R knee with closure of laceration POD [address] German Nonweightbearing right lower extremity Daily dressing changes beginning POD 2 Nothing by mouth Sign consents - sx today for R forearm Dr. Anaya med management Brant Preciado Apr 17, 2017 09:30
[2017-04-17] MEDS ORDERED: KETOROLAC TROMETHAMINE 60 MG/2 ML (IM) VIAL IM ONE (10:40)
[2017-04-17] MEDS ORDERED: NEOSTIGMINE 3 MG/3 ML SYR IV ONE (10:40)
[2017-04-17] MEDS ORDERED: PROPOFOL 200 MG/20 ML AMP IV ONE (10:40)
[2017-04-17] MEDS ORDERED: ONDANSETRON HCL 4 MG/2 ML VIAL IV PUSH ONE (10:41)
[2017-04-17] MEDS ORDERED: LACTATED RINGER'S 1000 ML INJ 1,000 ML IV ONE (10:41)
[2017-04-17] MEDS ORDERED: SODIUM CHLOR 0.9% 1000 ML INJ 1,000 ML IV SCH (10:45)
[2017-04-17] MEDS ORDERED: VANCOMYCIN HCL 1000 MG VIAL ONE (12:34)
[2017-04-17] MEDS ORDERED: GENTAMICIN SULFATE 80 MG/2 ML VIAL ONE (12:34)
[2017-04-17] MEDS ORDERED: SODIUM CHLOR 0.9% 250 ML INJ 250 ML ONE (12:34)
[2017-04-17] MEDS ORDERED: ceFAZolin 2 GM PREMIX 50 ML ONE (12:36)
[2017-04-17] MEDS ORDERED: MIDAZOLAM HCL 2 MG/2 ML VIAL ONE (14:29)
[2017-04-17] MEDS ORDERED: ACETAMINOPHEN 1000 MG/100 ML VIAL IV ONE (14:33)
[2017-04-17] MEDS ORDERED: HYDROmorphone HCL PF 2 MG/ML VIAL ONE (15:01)
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
[2017-04-17] MEDS ORDERED: LACTATED RINGER'S 1000 ML INJ 1,000 ML IV SCH (16:27)
[2017-04-17] MEDS ORDERED: BACITRACIN OPHT OINT 3.5 GM TUBO ONE (16:27)
--- NOTE | 2017-04-17 16:36 | PD.OP ---
cc: Alfredito Biswas MD Operative Report Date of Surgery: Apr 17, 2017 Preoperative Diagnosis: Open right radius and ulna shaft fractures, open distal radial ulnar joint dislocation Postoperative Diagnosis: Procedure: Irrigation and debridement of open fracture, open reduction fixation of right radius and ulna fractures, open treatment of distal radioulnar joint dislocation Surgeon: Alfredito Biswas Sales Consulting Director(s): Vadim Paris PA-C The surgical procedure was assisted by my physician logging assistant. My P.A. presence was necessary throughout this case for the manipulation and positioning of the surgical extremity. My P.A. was assisting me throughout the duration of this procedure. The skill set of a physician logging assistant was medically necessary to complete this procedure. During the surgical case the director medical surgical was working at the back table and the physician logging assistant was directly assisting me. Operation and Findings: Patient was seen and examined preoperatively. Patient was found to have displaced open right radius and ulna shaft fractures. Informed consent was obtained and operative site was marked. Patient was brought to operating room and given IV sedation and general anesthesia. Timeout procedure was performed. Operative extremity was prepped and draped with alcohol followed by Hibiclens and draped in usual sterile fashion. IV antibiotics were administered prior to incision. Procedure began debridement of open fracture. The traumatic laceration was opened. The laceration over the ulna was also extended proximally to expose the fracture. Fascia was elevated off of the bone. Fracture site was visualized. Fracture was now cleaned with curettes. Soft tissue was debrided with scalpel and rongeur. Wound was now thoroughly irrigated with sterile saline. The distal radioulnar joint was also thoroughly irrigated. Next attention was turned to the radius. A 5 inch incision was made over the volar aspect of the forearm. A standard volar approach was utilized. The interval between the radial artery and superficial radial nerve was identified. Neurovascular structures were protected. Soft tissue was elevated off the bone. Fracture site was visualized. Fracture fragments were carefully reduced. Each fracture fragment keyed in anatomic alignment. K wires were used to hold provisional fixation. A ITS plate was contoured to fit the radius. Plate was provisionally held with K wires. 3.5 cortical screws were used to compress plate to bone. Multiple screws were placed in each side of fracture. K wires were removed. Fluoroscopy confirmed well aligned fracture. Incision was thoroughly irrigated. Incision was closed with 3-0 Vicryl and elizabeth. Next attention was turned to reduction of the ulna. Fracture tenaculums were used to reduce fracture. Fracture keyed into anatomic alignment. A ITS plate was placed across the fracture. Plate was provisionally held to bone with K wires. 3.5 cortical screws were used to compress plate to bone. Multiple screws were placed in each side of fracture. K wires were removed. Lag screws were placed to capture butterfly fragment. Next attention was turned to the distal radioulnar joint. There was complete dislocation of the joint. The distal radial joint was now mainly reduced. There was an avulsion of the ulnar styloid. A #2 FiberWire suture was now passed around the ulnar styloid. The sutures now passed through hold the plate to reduce it to the fracture site. The ulnar styloid was sutured into place. The distal radial ulnar joint was much more stable. The joint was now held in a reduced position. A Steinmann pin was now placed through the radius into the ulna for additional stability. Fluoroscopy confirmed excellent alignment of fracture with well-placed hardware. Incision was now closed with 3-0 PDS and 3- 0 nylon. Final fluoroscopy revealed excellent of fracture with well-placed hardware. Sterile dressings were applied with Xeroform 4 x 4 soft roll and Kahlil wrap. Patient was awakened and transferred to recovery room in stable condition. Forearm compartments were soft and compressible. Alfredito Biswas MD Apr 17, 2017 16:36
[2017-04-17] MEDS ORDERED: RESP: RACEPINEPHRINE 2.25% 0.5 ML NEB ONE (17:41)
[2017-04-17] MEDS ORDERED: fentaNYL CITRATE 250 MCG/5 ML AMP ONE (18:02)
--- NOTE | 2017-04-17 18:14 | RADRPT ---
EXAM DATE/TIME: 04/17/2017 17:40 [facility] COMPARISON: CHEST SINGLE AP, April 17, 2017, 4:56. INDICATIONS : Wheezing and shortness of breath after surgery. MEDICAL HISTORY : None. SURGICAL HISTORY : None. ENCOUNTER: Initial ACUITY: 1 day PAIN SCORE: Non-responsive. LOCATION: Bilateral chest FINDINGS: A single portable frontal view of the chest shows vague groundglass opacities within the medial right lung base and to a lesser degree left lung base. Appearance is similar. No infiltrates or effusions. Heart is normal in size. Bony structures are unremarkable. No pneumothorax. CONCLUSION: Minimal bibasilar atelectasis. Og Soto Jr., MD on April 17, 2017 at 18:12 Board Certified Radiologist. This report was verified electronically.
--- NOTE | 2017-04-17 18:56 | RADRPT ---
EXAM DATE/TIME: 04/17/2017 15:42 [facility] COMPARISON: FOREARM RIGHT (2VWS), April 15, 2017, 15:57. INDICATIONS : ORIF of the right distal forearm. MEDICAL HISTORY : None. SURGICAL HISTORY : None. ENCOUNTER: Subsequent ACUITY: 3 days PAIN SCORE: Non-responsive. LOCATION: Right distal forearm FINDINGS: 6 magnified C-arm spot views show placement of orthopedic plates involving the distal radius and ulna with good alignment of both fracture sites. Surgical elizabeth noted. CONCLUSION: Limited images as detailed above. Og Soto Jr., MD on April 17, 2017 at 18:54 Board Certified Radiologist. This report was verified electronically.
[2017-04-17] MEDS: ceFAZolin 2 GM PREMIX 50 ML IV SCH (19:03)
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
[2017-04-17] MEDS ORDERED: DEXAMETHASONE SOD PHOS 20 MG/5 ML VIAL ONE (19:15)
[2017-04-17] MEDS ORDERED: RESP: ALBUTEROL 2.5 MG/IPRATROPIUM 0.5 MG NEB (PRN) NEB (19:45)
[2017-04-17] MEDS ORDERED: DEXAMETHASONE SOD PHOS 20 MG/5 ML VIAL IM ONE (20:30)
[2017-04-17] MEDS ORDERED: DEXAMETHASONE SOD PHOS 4 MG/ML VIAL IV ONE (20:45)
[2017-04-18] VITALS (10 sets, daily range): BP systolic 130–147; BP diastolic 68–79; PULSE 102–118; RESP 18–30; TEMP 97.3–100.2; O2SAT 95–99
[2017-04-18] MEDS: GENTAMICIN 80 MG PREMIX 100 ML IV SCH ×4 (00:13→22:46)
[2017-04-18] MEDS: KETOROLAC TROMETHAMINE 30 MG/ML (IVP) VIAL IVP SCH ×4 (00:51→21:23)
[2017-04-18] MEDS: ceFAZolin 2 GM PREMIX 50 ML IV SCH ×3 (02:01→18:16)
[2017-04-18] MEDS: CHLORHEXIDINE GLUCONATE 2 % 1 PACK (2 CLOTHS) TOP SCH (04:00)
[2017-04-18 05:02] LABS: HEMATOCRIT 28.9 % (39.0-51.0); MEAN CELL VOLUME 92.3 FL (80.0-100.0); MEAN CORPUSCULAR HEMOGLOBIN 31.9 PG (27.0-34.0); MEAN CORPUSCULAR HGB CONC 34.6 % (32.0-36.0); PLATELET COUNT 173 TH/MM3 (150-450); RED BLOOD COUNT 3.13 MIL/MM3 (4.50-5.90); RED CELL DISTRIBUTION WIDTH 14.4 % (11.6-17.2); REVIEW FLAG FINAL; WHITE BLOOD COUNT 12.8 TH/MM3 (4.0-11.0)
[2017-04-18] MEDS: INSULIN ASPART SUPPLEMENTAL SCALE SQ SCH ×4 (07:00→21:23)
--- NOTE | 2017-04-18 07:42 | PD.ORT.PN ---
Subjective Subjective Remarks POD 1 s/p ORIF right BBFA by Dr Anaya POD 3 s/p IMN right femur by Dr German doing well. pain controlled. reports swelling of right hand Objective Vitals Vital Signs Date Time Temp Pulse Resp B/P Pulse Ox O2 Delivery O2 Flow Rate FiO2 04/18/17 06:05 20 04/18/17 06:00 104 04/18/17 04:00 98.9 114 30 142/72 97 04/18/17 04:00 114 04/18/17 02:00 108 04/18/17 00:00 99.2 114 30 145/79 97 04/18/17 00:00 114 04/17/17 23:55 98 Nasal Cannula 2.00 04/17/17 23:55 96 2.00 04/17/17 23:55 96 Nasal Cannula 2.00 04/17/17 22:00 98 04/17/17 20:00 91 04/17/17 20:00 99.4 96 25 153/73 100 04/17/17 19:40 100 BiPAP 50 04/17/17 19:37 100 50 04/17/17 19:00 100 Bi-Pap 50 04/17/17 18:20 99 50 04/17/17 18:15 98.0 108 14 167/64 98 Non-Rebreather 15 04/17/17 18:00 107 04/17/17 18:00 111 14 167/64 94 Bi-Pap 50 04/17/17 18:00 98 Bi-Pap 50 04/17/17 17:45 114 10 164/77 94 Bi-Pap 50 04/17/17 17:30 97.5 126 10 167/77 88 Bi-Pap 50 04/17/17 17:28 93 50 04/17/17 12:00 99.6 122 28 128/62 99 04/17/17 12:00 122 04/17/17 10:00 116 04/17/17 08:00 121 04/17/17 08:00 95 Nasal Cannula 2.00 04/17/17 08:00 98.8 121 25 149/71 95 I/O 04/17/17 04/17/17 04/17/17 04/18/17 04/18/17 04/18/17 07:00 15:00 23:00 07:00 15:00 23:00 Intake Total 284 ml 200 ml 1250 ml 394 ml Output Total 625 ml 900 ml 1850 ml 1350 ml Balance -341 ml -700 ml -600 ml -956 ml IV Total 284 ml 200 ml 150 ml 394 ml Other 1100 ml Output Urine Total 625 ml 900 ml 1800 ml 1350 ml Estimated Blood Loss 50 ml # Bowel Movements 0 0 0 Result Diagram: 04/18/17 0440 04/17/17 0557 Imaging Last 24 hours Impressions Pelvis X-Ray 04/15/171620 Signed Impressions: Service Date/Time: Saturday, April 15, 2017 15:57 - CONCLUSION: Right femoral neck fracture. Vinicius Mccray MD Head CT 04/15/171620 Signed Impressions: Service Date/Time: Saturday, April 15, 2017 16:34 - CONCLUSION: 1. Chronic sinusitis. 2. No acute intracranial process, trauma or fracture. Vinicius Mccray MD Chest X-Ray 04/15/171620 Signed Impressions: Service Date/Time: Saturday, April 15, 2017 15:57 - CONCLUSION: No acute cardiopulmonary process. Vinicius Mccray MD Chest CT 04/15/171620 Signed Impressions: Service Date/Time: Saturday, April 15, 2017 16:40 - CONCLUSION: 1. Patchy air space disease in the superior segment of both lower lobes, left worse than right. Findings are nonspecific and could represent pulmonary parenchymal contusions or early aspiration. 2. No acute thoracic fracture. Mediastinal vasculature is all intact. Vinicius Mccray MD Cervical Spine CT 04/15/171620 Signed Impressions: Service Date/Time: Saturday, April 15, 2017 16:34 - CONCLUSION: 1. Mild multilevel degenerative disc disease from C4-5 through C6-7 with some loss of height and marginal spurring. 2. No acute fracture or listhesis. Vinicius Mccray MD Abdomen/Pelvis CT 04/15/171620 Signed Impressions: Service Date/Time: Saturday, April 15, 2017 16:40 - CONCLUSION: 1. Displaced, simple fracture through the right femoral neck with apparent multiple fractures of the right hand and wrist. 2. Patchy airspace disease in the superior segments of both lower lobes. Findings are nonspecific and could represent pulmonary parenchymal contusion or early aspiration. 3. No acute abdominal or pelvic visceral trauma. Vinicius Mccray MD Objective Remarks RUE: +long arm splint. NVI to median and ulnar nerve. good radial nerve function. RLE: dressings clean and dry. intact. NVI Assessment & Plan Assessment and Plan 1) Right open forearm fracture with irrigation debridement s/p ORIF - POD 1 -NWB -maintain splint 2) Right femoral neck and femoral shaft fractures status post intramedullary nail fixation; I&D R knee with closure of laceration POD [address] German Nonweightbearing right lower extremity Daily dressing changes beginning POD 2 -ortho surgeries complete -CM for rehab vs home -f/u with [facility] or [facility] in 2 weeks -scripts on chart Noé Ness Apr 18, 2017 07:42
[2017-04-18] MEDS: FAMOTIDINE 20 MG TAB PO SCH ×2 (08:05→21:22)
[2017-04-18] MEDS: BACITRACIN TOP OINT 15 GM TUBE TOP SCH ×2 (08:05→21:24)
[2017-04-18] MEDS: ENOXAPARIN SODIUM 30 MG/0.3 ML SYRINGE SQ SCH ×2 (08:05→21:23)
[2017-04-18] MEDS: SODIUM CHLORIDE 0.9% FLUSH 5 ML FLUSH IVF SCH ×2 (08:05→22:47)
[2017-04-18] MEDS: MULTIVITAMINS/MINERALS THERAPEUTIC TAB PO SCH (08:05)
[2017-04-18] MEDS: DOCUSATE SODIUM 50 MG/SENNA 8.6 MG TAB PO SCH ×2 (08:05→21:22)
--- NOTE | 2017-04-18 08:17 | PD.ORT.PN ---
Subjective Post Op Day #: 3 Subjective Remarks hard time getting comfortable. doing ok. had sx yesterday for R forearm fractures by Dr. Anaya. Objective Vitals Vital Signs Date Time Temp Pulse Resp B/P Pulse Ox O2 Delivery O2 Flow Rate FiO2 04/18/17 06:05 20 04/18/17 06:00 104 04/18/17 04:00 98.9 114 30 142/72 97 04/18/17 04:00 114 04/18/17 02:00 108 04/18/17 00:00 99.2 114 30 145/79 97 04/18/17 00:00 114 04/17/17 23:55 98 Nasal Cannula 2.00 04/17/17 23:55 96 2.00 04/17/17 23:55 96 Nasal Cannula 2.00 04/17/17 22:00 98 04/17/17 20:00 91 04/17/17 20:00 99.4 96 25 153/73 100 04/17/17 19:40 100 BiPAP 50 04/17/17 19:37 100 50 04/17/17 19:00 100 Bi-Pap 50 04/17/17 18:20 99 50 04/17/17 18:15 98.0 108 14 167/64 98 Non-Rebreather 15 04/17/17 18:00 107 04/17/17 18:00 111 14 167/64 94 Bi-Pap 50 04/17/17 18:00 98 Bi-Pap 50 04/17/17 17:45 114 10 164/77 94 Bi-Pap 50 04/17/17 17:30 97.5 126 10 167/77 88 Bi-Pap 50 04/17/17 17:28 93 50 04/17/17 12:00 99.6 122 28 128/62 99 04/17/17 12:00 122 04/17/17 10:00 116 I/O 04/17/17 04/17/17 04/17/17 04/18/17 04/18/17 04/18/17 07:00 15:00 23:00 07:00 15:00 23:00 Intake Total 284 ml 200 ml 1250 ml 394 ml Output Total 625 ml 900 ml 1850 ml 1350 ml Balance -341 ml -700 ml -600 ml -956 ml IV Total 284 ml 200 ml 150 ml 394 ml Other 1100 ml Output Urine Total 625 ml 900 ml 1800 ml 1350 ml Estimated Blood Loss 50 ml # Bowel Movements 0 0 0 Result Diagram: 04/18/17 0440 04/17/17 0557 Imaging Last 24 hours Impressions Pelvis X-Ray 04/15/171620 Signed Impressions: Service Date/Time: Saturday, April 15, 2017 15:57 - CONCLUSION: Right femoral neck fracture. Vinicius Mccray MD Head CT 04/15/171620 Signed Impressions: Service Date/Time: Saturday, April 15, 2017 16:34 - CONCLUSION: 1. Chronic sinusitis. 2. No acute intracranial process, trauma or fracture. Vinicius Mccray MD Chest X-Ray 04/15/171620 Signed Impressions: Service Date/Time: Saturday, April 15, 2017 15:57 - CONCLUSION: No acute cardiopulmonary process. Vinicius Mccray MD Chest CT 04/15/171620 Signed Impressions: Service Date/Time: Saturday, April 15, 2017 16:40 - CONCLUSION: 1. Patchy air space disease in the superior segment of both lower lobes, left worse than right. Findings are nonspecific and could represent pulmonary parenchymal contusions or early aspiration. 2. No acute thoracic fracture. Mediastinal vasculature is all intact. Vinicius Mccray MD Cervical Spine CT 04/15/171620 Signed Impressions: Service Date/Time: Saturday, April 15, 2017 16:34 - CONCLUSION: 1. Mild multilevel degenerative disc disease from C4-5 through C6-7 with some loss of height and marginal spurring. 2. No acute fracture or listhesis. Vinicius Mccray MD Abdomen/Pelvis CT 04/15/171620 Signed Impressions: Service Date/Time: Saturday, April 15, 2017 16:40 - CONCLUSION: 1. Displaced, simple fracture through the right femoral neck with apparent multiple fractures of the right hand and wrist. 2. Patchy airspace disease in the superior segments of both lower lobes. Findings are nonspecific and could represent pulmonary parenchymal contusion or early aspiration. 3. No acute abdominal or pelvic visceral trauma. Vinicius Mccray MD Objective Remarks RUE: +long arm splint. NVI to median and ulnar nerve. good radial nerve function. able to flex/extend fingers. cap refill. RLE: dressings clean and dry. thigh soft, neg homans. sensation intact. NVI. distal pulses palpable. Assessment & Plan Ortho Post Op Day #: 3 Problem List: Assessment and Plan 1) Right open forearm fracture with irrigation debridement s/p ORIF - POD 1 -NWB -maintain splint 2) Right femoral neck and femoral shaft fractures status post intramedullary nail fixation; I&D R knee with closure of laceration POD [address] German Nonweightbearing right lower extremity Daily dressing changes -lovenox -ortho surgeries complete -CM for rehab vs home -f/u with Dr. German and Dr. Anaya or [place] in 2 weeks -scripts on chart Brant Preciado Apr 18, 2017 08:17
[2017-04-18] MEDS: HYDROmorphone HCL PF 1 MG/ML VIAL IVP PRN ×2 (08:53→22:57)
[2017-04-18] MEDS: NICOTINE 14 MG/24 HR PATCH T-DERMAL SCH (09:15)
[2017-04-18] MEDS ORDERED: SENN1TAB PO (13:40)
[2017-04-18] MEDS ORDERED: MAGN400S PO (13:40)
[2017-04-18] MEDS ORDERED: WHEEMIS3 (13:41)
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
[2017-04-18] MEDS: ACETAMINOPHEN/HYDROcodone 325 MG/10 MG TAB PO PRN (21:22)
[2017-04-18] MEDS: REMOVE OLD PATCH T-DERMAL SCH (22:43)
[2017-04-19] VITALS (7 sets, daily range): BP systolic 121–137; BP diastolic 64–75; PULSE 96–115; RESP 18–20; TEMP 96.6–99.1; O2SAT 92–98
[2017-04-19] MEDS: ceFAZolin 2 GM PREMIX 50 ML IV SCH ×2 (01:53→10:13)
[2017-04-19] MEDS: CHLORHEXIDINE GLUCONATE 2 % 1 PACK (2 CLOTHS) TOP SCH (03:58)
[2017-04-19] MEDS: ACETAMINOPHEN/HYDROcodone 325 MG/10 MG TAB PO PRN ×2 (06:13→19:34)
[2017-04-19] MEDS: INSULIN ASPART SUPPLEMENTAL SCALE SQ SCH (06:14)
[2017-04-19] MEDS: GENTAMICIN 80 MG PREMIX 100 ML IV SCH ×2 (06:14→14:31)
[2017-04-19] MEDS: KETOROLAC TROMETHAMINE 30 MG/ML (IVP) VIAL IVP SCH ×2 (06:14→14:30)
--- NOTE | 2017-04-19 06:49 | PD.ORT.PN ---
Subjective Subjective Remarks Patient is awake. He is relatively comfortable. He does complain of some right hand swelling. He is trying to keep his hand elevated. Pain is reasonably well controlled Objective Vitals Vital Signs Date Time Temp Pulse Resp B/P Pulse Ox O2 Delivery O2 Flow Rate FiO2 04/19/17 00:00 99.1 115 18 127/64 97 04/18/17 20:00 100.2 118 18 130/68 95 04/18/17 16:24 97.3 105 20 135/69 97 04/18/17 12:00 98.1 114 24 147/76 96 04/18/17 12:00 113 04/18/17 10:00 110 04/18/17 08:00 98.4 102 26 146/69 99 04/18/17 08:00 110 04/18/17 07:30 98 Nasal Cannula 2.00 04/18/17 07:00 95 Nasal Cannula 2.00 I/O 04/18/17 04/18/17 04/18/17 04/19/17 04/19/17 04/19/17 07:00 15:00 23:00 07:00 15:00 23:00 Intake Total 394 ml 873 ml Output Total 1350 ml 925 ml 200 ml Balance -956 ml -52 ml -200 ml Intake Oral 600 ml IV Total 394 ml 273 ml Output Urine Total 1350 ml 925 ml 200 ml # Voids 1 # Bowel Movements 0 0 Result Diagram: 04/18/17 0440 04/17/17 0557 Imaging Last 24 hours Impressions Pelvis X-Ray 04/15/171620 Signed Impressions: Service Date/Time: Saturday, April 15, 2017 15:57 - CONCLUSION: Right femoral neck fracture. Vinicius Mccray MD Head CT 04/15/171620 Signed Impressions: Service Date/Time: Saturday, April 15, 2017 16:34 - CONCLUSION: 1. Chronic sinusitis. 2. No acute intracranial process, trauma or fracture. Vinicius Mccray MD Chest X-Ray 04/15/171620 Signed Impressions: Service Date/Time: Saturday, April 15, 2017 15:57 - CONCLUSION: No acute cardiopulmonary process. Vinicius Mccray MD Chest CT 04/15/171620 Signed Impressions: Service Date/Time: Saturday, April 15, 2017 16:40 - CONCLUSION: 1. Patchy air space disease in the superior segment of both lower lobes, left worse than right. Findings are nonspecific and could represent pulmonary parenchymal contusions or early aspiration. 2. No acute thoracic fracture. Mediastinal vasculature is all intact. Vinicius Mccray MD Cervical Spine CT 04/15/171620 Signed Impressions: Service Date/Time: Saturday, April 15, 2017 16:34 - CONCLUSION: 1. Mild multilevel degenerative disc disease from C4-5 through C6-7 with some loss of height and marginal spurring. 2. No acute fracture or listhesis. Vinicius Mccray MD Abdomen/Pelvis CT 04/15/171620 Signed Impressions: Service Date/Time: Saturday, April 15, 2017 16:40 - CONCLUSION: 1. Displaced, simple fracture through the right femoral neck with apparent multiple fractures of the right hand and wrist. 2. Patchy airspace disease in the superior segments of both lower lobes. Findings are nonspecific and could represent pulmonary parenchymal contusion or early aspiration. 3. No acute abdominal or pelvic visceral trauma. Vinicius Mccray MD Objective Remarks RUE: +long arm splint. NVI to median and ulnar nerve. Able to flex/extend fingers. Minimal pain with passive range of motion of fingers. Good Cap refill. RLE: dressings clean and dry. thigh soft, neg homans. sensation intact. NVI. distal pulses palpable. Assessment & Plan Assessment and Plan 1) Right open forearm fracture with irrigation debridement s/p ORIF - POD 2 -NWB -maintain splint 2) Right femoral neck and femoral shaft fractures status post intramedullary nail fixation; I&D R knee with closure of laceration POD [address] German Nonweightbearing right lower extremity Daily dressing changes -lovenox -ortho surgeries complete -CM for rehab vs home -f/u with Dr. German and Dr. Anaya or [place] in 2 weeks -scripts on chart Alfredito Anaya MD Apr 19, 2017 06:49
[2017-04-19] MEDS: DOCUSATE SODIUM 50 MG/SENNA 8.6 MG TAB PO SCH ×2 (07:31→20:53)
[2017-04-19] MEDS: ENOXAPARIN SODIUM 30 MG/0.3 ML SYRINGE SQ SCH ×2 (07:31→20:53)
[2017-04-19] MEDS: MULTIVITAMINS/MINERALS THERAPEUTIC TAB PO SCH (07:31)
[2017-04-19] MEDS: FAMOTIDINE 20 MG TAB PO SCH ×2 (07:31→20:53)
[2017-04-19] MEDS: SODIUM CHLORIDE 0.9% FLUSH 5 ML FLUSH IVF SCH ×2 (07:32→20:53)
[2017-04-19] MEDS: NICOTINE 14 MG/24 HR PATCH T-DERMAL SCH (07:32)
--- NOTE | 2017-04-19 08:32 | PD.ORT.PN ---
Subjective Post Op Day #: 4 Subjective Remarks feeling a little better. Objective Vitals Vital Signs Date Time Temp Pulse Resp B/P Pulse Ox O2 Delivery O2 Flow Rate FiO2 04/19/17 04:00 97.1 96 18 121/65 92 04/19/17 00:00 99.1 115 18 127/64 97 04/18/17 20:00 100.2 118 18 130/68 95 04/18/17 16:24 97.3 105 20 135/69 97 04/18/17 12:00 98.1 114 24 147/76 96 04/18/17 12:00 113 04/18/17 10:00 110 I/O 04/18/17 04/18/17 04/18/17 04/19/17 04/19/17 04/19/17 07:00 15:00 23:00 07:00 15:00 23:00 Intake Total 394 ml 873 ml Output Total 1350 ml 925 ml 200 ml Balance -956 ml -52 ml -200 ml Intake Oral 600 ml IV Total 394 ml 273 ml Output Urine Total 1350 ml 925 ml 200 ml # Voids 1 4 # Bowel Movements 0 0 Result Diagram: 04/18/17 0440 04/17/17 0557 Imaging Last 24 hours Impressions Pelvis X-Ray 04/15/171620 Signed Impressions: Service Date/Time: Saturday, April 15, 2017 15:57 - CONCLUSION: Right femoral neck fracture. Vinicius Mccray MD Head CT 04/15/171620 Signed Impressions: Service Date/Time: Saturday, April 15, 2017 16:34 - CONCLUSION: 1. Chronic sinusitis. 2. No acute intracranial process, trauma or fracture. Vinicius Mccray MD Chest X-Ray 04/15/171620 Signed Impressions: Service Date/Time: Saturday, April 15, 2017 15:57 - CONCLUSION: No acute cardiopulmonary process. Vinicius Mccray MD Chest CT 04/15/171620 Signed Impressions: Service Date/Time: Saturday, April 15, 2017 16:40 - CONCLUSION: 1. Patchy air space disease in the superior segment of both lower lobes, left worse than right. Findings are nonspecific and could represent pulmonary parenchymal contusions or early aspiration. 2. No acute thoracic fracture. Mediastinal vasculature is all intact. Vinicius Mccray MD Cervical Spine CT 04/15/17 1621 Signed Impressions: Service Date/Time: Saturday, April 15, 2017 16:34 - CONCLUSION: 1. Mild multilevel degenerative disc disease from C4-5 through C6-7 with some loss of height and marginal spurring. 2. No acute fracture or listhesis. Vinicius Mccray MD Abdomen/Pelvis CT 04/15/17 1621 Signed Impressions: Service Date/Time: Saturday, April 15, 2017 16:40 - CONCLUSION: 1. Displaced, simple fracture through the right femoral neck with apparent multiple fractures of the right hand and wrist. 2. Patchy airspace disease in the superior segments of both lower lobes. Findings are nonspecific and could represent pulmonary parenchymal contusion or early aspiration. 3. No acute abdominal or pelvic visceral trauma. Vinicius Mccray MD Objective Remarks RUE: +long arm splint. NVI to median and ulnar nerve. Able to flex/extend fingers. Minimal pain with passive range of motion of fingers. Good Cap refill. RLE: dressings with serous drainage, no erythema. thigh soft, neg homans. sensation intact. NVI. distal pulses palpable. Assessment & Plan Ortho Post Op Day #: 4 Problem List: Assessment and Plan 1) Right open forearm fracture with irrigation debridement s/p ORIF - POD 2 -NWB -maintain splint 2) Right femoral neck and femoral shaft fractures status post intramedullary nail fixation; I&D R knee with closure of laceration POD [address] German Nonweightbearing right lower extremity Daily dressing changes, more often if necessary -lovenox -ortho surgeries complete -CM for rehab vs home -f/u with Dr. German and Dr. Anaya or [place] in 2 weeks -scripts on chart Brant Preciado Apr 19, 2017 08:32
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
[2017-04-19] MEDS: LACTULOSE SYRUP 20 GM/30 ML CUP PO SCH (13:26)
[2017-04-19] MEDS: MORPHINE SULFATE 8 MG/ML INJ IV PUSH PRN (20:52)
[2017-04-19] MEDS: REMOVE OLD PATCH T-DERMAL SCH (21:00)
[2017-04-19] MEDS: BACITRACIN TOP OINT 15 GM TUBE TOP SCH (21:20)
[2017-04-20] VITALS (8 sets, daily range): BP systolic 113–131; BP diastolic 58–72; PULSE 93–110; RESP 18–20; TEMP 97.1–99.1; O2SAT 96–98
[2017-04-20] MEDS: ACETAMINOPHEN/HYDROcodone 325 MG/10 MG TAB PO PRN ×5 (04:38→21:12)
--- NOTE | 2017-04-20 07:20 | HHI.FF ---
Face to Face Verification Diagnosis: (1) Multiple fractures (2) Fracture, femur, shaft, open (3) Closed fracture of midcervical section of femur (4) Fracture, Colles, left, open (5) DRUJ (distal radioulnar joint) instability, post-traumatic Physical Therapy Order: Improve ambulation, Strength and gait training Occupational Therapy Order: Evaluate and Treat, Improve ADL, Gross motor coordination, Fine motor coordination Home Health Nursing Order: Medical education Signs/symptoms of disease process Medication education-adverse effect Nursing assessment with vital signs I have seen patient Faiza Haynes on 04/20/17. My clinical findings support the need for the requested home health care services because: Ltd mobility - disease progression Deconditioned w/ increased weakness Limited ability to care for self High risk of falls I certify that my clinical findings support that this patient is homebound because: Impaired cognitive ability/safety Unsteady gait/balance Unsafe to leave home unassisted [id number] bed/chair Unable to use public transportation Reyna Shields Apr 20, 2017 07:20
--- NOTE | 2017-04-20 07:23 | PD.ORT.PN ---
Subjective Subjective Remarks POD 3 s/p ORIF right BBFA by Dr Anaya POD 5 s/p IMN right femur by Dr German doing well. pain controlled. reports swelling of right hand but controlled. has been elevating hand/arm Objective Vitals Vital Signs Date Time Temp Pulse Resp B/P Pulse Ox O2 Delivery O2 Flow Rate FiO2 04/20/17 04:00 97.7 99 20 113/72 96 04/20/17 00:00 98.0 103 20 124/64 96 04/19/17 20:00 97.8 108 20 134/69 95 04/19/17 19:47 97 21 04/19/17 16:00 97.3 103 19 132/75 97 04/19/17 12:00 96.6 102 19 137/73 98 04/19/17 08:00 97.2 96 19 132/66 95 I/O 04/19/17 04/19/17 04/19/17 04/20/17 04/20/17 04/20/17 07:00 15:00 23:00 07:00 15:00 23:00 Intake Total 1200 ml 60 ml Balance 1200 ml 60 ml Intake Oral 1200 ml 60 ml # Voids 4 3 0 # Bowel Movements 2 0 Result Diagram: 04/18/17 0440 04/17/17 0557 Imaging Last 24 hours Impressions Pelvis X-Ray 04/15/171620 Signed Impressions: Service Date/Time: Saturday, April 15, 2017 15:57 - CONCLUSION: Right femoral neck fracture. Vinicius Mccray MD Head CT 04/15/171620 Signed Impressions: Service Date/Time: Saturday, April 15, 2017 16:34 - CONCLUSION: 1. Chronic sinusitis. 2. No acute intracranial process, trauma or fracture. Vinicius Mccray MD Chest X-Ray 04/15/171620 Signed Impressions: Service Date/Time: Saturday, April 15, 2017 15:57 - CONCLUSION: No acute cardiopulmonary process. Vinicius Mccray MD Chest CT 04/15/171620 Signed Impressions: Service Date/Time: Saturday, April 15, 2017 16:40 - CONCLUSION: 1. Patchy air space disease in the superior segment of both lower lobes, left worse than right. Findings are nonspecific and could represent pulmonary parenchymal contusions or early aspiration. 2. No acute thoracic fracture. Mediastinal vasculature is all intact. Vinicius Mccray MD Cervical Spine CT 04/15/171620 Signed Impressions: Service Date/Time: Saturday, April 15, 2017 16:34 - CONCLUSION: 1. Mild multilevel degenerative disc disease from C4-5 through C6-7 with some loss of height and marginal spurring. 2. No acute fracture or listhesis. Vinicius Mccray MD Abdomen/Pelvis CT 04/15/171620 Signed Impressions: Service Date/Time: Saturday, April 15, 2017 16:40 - CONCLUSION: 1. Displaced, simple fracture through the right femoral neck with apparent multiple fractures of the right hand and wrist. 2. Patchy airspace disease in the superior segments of both lower lobes. Findings are nonspecific and could represent pulmonary parenchymal contusion or early aspiration. 3. No acute abdominal or pelvic visceral trauma. Vinicius Mccray MD Objective Remarks RUE: +long arm splint. NVI to median and ulnar nerve. Able to flex/extend fingers. Minimal pain with passive range of motion of fingers. Good Cap refill. RLE: dressings with serous drainage, no erythema. thigh soft, neg homans. sensation intact. NVI. distal pulses palpable. Assessment & Plan Assessment and Plan 1) Right open forearm fracture with irrigation debridement s/p ORIF - POD 3 -NWB -maintain splint 2) Right femoral neck and femoral shaft fractures status post intramedullary nail fixation; I&D R knee with closure of laceration POD [address] German Nonweightbearing right lower extremity Daily dressing changes, more often if necessary -lovenox -ortho surgeries complete -ortho cleared for discharge -CM for rehab placement. 3008 on chart -f/u with Dr. German and Dr. Anaya or [place] in 2 weeks -scripts on chart Noé Ness Apr 20, 2017 07:23
[2017-04-20] MEDS: SODIUM CHLORIDE 0.9% FLUSH 5 ML FLUSH IVF SCH ×2 (09:00→21:00)
[2017-04-20] MEDS: BACITRACIN TOP OINT 15 GM TUBE TOP SCH ×2 (09:00→21:00)
[2017-04-20] MEDS: LACTULOSE SYRUP 20 GM/30 ML CUP PO SCH (09:00)
[2017-04-20] MEDS: FAMOTIDINE 20 MG TAB PO SCH ×2 (09:45→21:12)
[2017-04-20] MEDS: ENOXAPARIN SODIUM 30 MG/0.3 ML SYRINGE SQ SCH ×2 (09:45→21:12)
[2017-04-20] MEDS: DOCUSATE SODIUM 50 MG/SENNA 8.6 MG TAB PO SCH ×2 (09:45→21:00)
[2017-04-20] MEDS: MULTIVITAMINS/MINERALS THERAPEUTIC TAB PO SCH (09:45)
[2017-04-20] MEDS: NICOTINE 14 MG/24 HR PATCH T-DERMAL SCH (09:46)
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
[2017-04-20] MEDS: GABAPENTIN 300 MG CAP PO SCH ×2 (14:00→21:17)
[2017-04-20] MEDS: REMOVE OLD PATCH T-DERMAL SCH (21:00)
[2017-04-21] VITALS (7 sets, daily range): BP systolic 108–137; BP diastolic 58–64; PULSE 77–112; RESP 17–20; TEMP 96.5–100; O2SAT 95–100
[2017-04-21] MEDS: ACETAMINOPHEN/HYDROcodone 325 MG/10 MG TAB PO PRN ×5 (04:42→21:10)
[2017-04-21] MEDS: LACTULOSE SYRUP 20 GM/30 ML CUP PO SCH (08:00)
[2017-04-21] MEDS: NICOTINE 14 MG/24 HR PATCH T-DERMAL SCH (08:00)
[2017-04-21] MEDS: GABAPENTIN 300 MG CAP PO SCH ×3 (08:00→17:17)
[2017-04-21] MEDS: ENOXAPARIN SODIUM 30 MG/0.3 ML SYRINGE SQ SCH ×2 (08:00→21:10)
[2017-04-21] MEDS: MULTIVITAMINS/MINERALS THERAPEUTIC TAB PO SCH (08:00)
[2017-04-21] MEDS: FAMOTIDINE 20 MG TAB PO SCH ×2 (08:01→21:10)
[2017-04-21] MEDS: DOCUSATE SODIUM 50 MG/SENNA 8.6 MG TAB PO SCH ×2 (08:01→21:00)
[2017-04-21] MEDS: MORPHINE SULFATE 8 MG/ML INJ IV PUSH PRN ×3 (08:02→15:12)
[2017-04-21 08:47] LABS: AUTOMATED NEUTROPHIL # 10.1 TH/MM3 (1.8-7.7); BASOPHIL % 0.2 % (0.0-2.0); EOSINOPHIL # 0.3 TH/MM3 (0-0.4); EOSINOPHIL % 2.2 % (0.0-4.0); HEMATOCRIT 28.6 % (39.0-51.0); LYMPH % 11.6 % (9.0-44.0); LYMPHOCYTE # 1.6 TH/MM3 (1.0-4.8); MEAN CELL VOLUME 92.4 FL (80.0-100.0); MEAN CORPUSCULAR HEMOGLOBIN 32.1 PG (27.0-34.0); MEAN CORPUSCULAR HGB CONC 34.8 % (32.0-36.0); MONO % 13.8 % (0.0-8.0); NEUT % 72.2 % (16.0-70.0); PLATELET COUNT 377 TH/MM3 (150-450); RED BLOOD COUNT 3.09 MIL/MM3 (4.50-5.90); RED CELL DISTRIBUTION WIDTH 14.1 % (11.6-17.2)
[2017-04-21 08:52] LABS: HEMO FLAGS AUTO DIFF
[2017-04-21] MEDS: BACITRACIN TOP OINT 15 GM TUBE TOP SCH ×2 (09:00→21:00)
[2017-04-21] MEDS: SODIUM CHLORIDE 0.9% FLUSH 5 ML FLUSH IVF SCH ×2 (09:00→21:00)
[2017-04-21 09:23] LABS: ANION GAP 6 MEQ/L (5-15); AST (GOT) 99 U/L (15-37); BICARBONATE 29.1 MEQ/L (21.0-32.0); BLOOD UREA NITROGEN 13 MG/DL (7-18); CHLORIDE 103 MEQ/L (98-107); GLOMERULAR FILTRATION RATE 121 ML/MIN (>89); POTASSIUM 3.4 MEQ/L (3.5-5.1); SODIUM (NA) 138 MEQ/L (136-145)
[2017-04-21 09:24] LABS: ALT (GPT) 69 U/L (12-78)
[2017-04-21 09:26] LABS: ALKALINE PHOSPHATASE 44 U/L (45-117); TOTAL BILIRUBIN ADULT 0.8 MG/DL (0.2-1.0)
[2017-04-21 09:30] LABS: BANDS 5 % (0-6); CORRECTED NUCLEATED RBC 5 /100 WBC (0-0); EOSINOPHILS 3 % (0-4); METAMYELOCYTES 4 % (0-1); MYELOCYTES 2 % (0-0); NEUTROPHIL # MANUAL DIFF 11.1 TH/MM3 (1.8-7.7); POLYS (SEG NEUTROPHILS) 68 % (16-70); WBC DIFF SAMPLE 100
[2017-04-21 09:32] LABS: PLATELET ESTIMATE SMEAR HIGH (NORMAL); PLATELET MORPHOLOGY NORMAL (NORMAL); SCAN/DIFF FINAL DIFF MANUAL
[2017-04-21] MEDS ORDERED: POTASSIUM CHLORIDE 20 MEQ CONTROLLED RELEASE TAB PO ONE (09:45)
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
--- NOTE | 2017-04-21 13:10 | PD.ORT.PN ---
Subjective Subjective Remarks 1) Right open forearm fracture with irrigation debridement s/p ORIF - POD 4 Dr Anaya 2) Right femoral neck and femoral shaft fractures status post intramedullary nail fixation; I&D R knee with closure of laceration POD [address] German Pt laying comfortably in bed, accompanied by family. He states he has no insurance and is awaiting rehab placement. He is concerned about discharge because he 'can not move his leg up'. Pt was educated on simple exercises he can perform. Objective Vitals Vital Signs Date Time Temp Pulse Resp B/P Pulse Ox O2 Delivery O2 Flow Rate FiO2 04/21/17 12:00 96.5 108 18 137/63 95 04/21/17 09:20 98 21 04/21/17 08:00 97.8 91 18 112/64 97 04/21/17 04:00 98.8 98 20 108/58 96 04/21/17 00:00 99.4 104 20 119/61 96 04/20/17 20:00 99.1 108 20 123/58 97 04/20/17 17:55 97 21 04/20/17 15:50 98.2 110 18 131/64 97 I/O 04/20/17 04/20/17 04/20/17 04/21/17 04/21/17 04/21/17 07:00 15:00 23:00 07:00 15:00 23:00 Intake Total 60 ml 120 ml Output Total 1 ml 20 ml Balance 60 ml -1 ml 100 ml Intake Oral 60 ml 120 ml Output Urine Total 20 ml Stool Total 1 ml # Voids 0 2 # Bowel Movements 0 2 0 Result Diagram: 04/21/17 0734 04/21/17 0734 Imaging Last 24 hours Impressions Pelvis X-Ray 04/15/171620 Signed Impressions: Service Date/Time: Saturday, April 15, 2017 15:57 - CONCLUSION: Right femoral neck fracture. Vinicius Mccray MD Head CT 04/15/171620 Signed Impressions: Service Date/Time: Saturday, April 15, 2017 16:34 - CONCLUSION: 1. Chronic sinusitis. 2. No acute intracranial process, trauma or fracture. Vinicius Mccray MD Chest X-Ray 04/15/171620 Signed Impressions: Service Date/Time: Saturday, April 15, 2017 15:57 - CONCLUSION: No acute cardiopulmonary process. Vinicius Mccray MD Chest CT 04/15/171620 Signed Impressions: Service Date/Time: Saturday, April 15, 2017 16:40 - CONCLUSION: 1. Patchy air space disease in the superior segment of both lower lobes, left worse than right. Findings are nonspecific and could represent pulmonary parenchymal contusions or early aspiration. 2. No acute thoracic fracture. Mediastinal vasculature is all intact. Vinicius Mccray MD Cervical Spine CT 04/15/171620 Signed Impressions: Service Date/Time: Saturday, April 15, 2017 16:34 - CONCLUSION: 1. Mild multilevel degenerative disc disease from C4-5 through C6-7 with some loss of height and marginal spurring. 2. No acute fracture or listhesis. Vinicius Mccray MD Abdomen/Pelvis CT 04/15/171620 Signed Impressions: Service Date/Time: Saturday, April 15, 2017 16:40 - CONCLUSION: 1. Displaced, simple fracture through the right femoral neck with apparent multiple fractures of the right hand and wrist. 2. Patchy airspace disease in the superior segments of both lower lobes. Findings are nonspecific and could represent pulmonary parenchymal contusion or early aspiration. 3. No acute abdominal or pelvic visceral trauma. Vinicius Mccray MD Objective Remarks RUE: +long arm splint. NVI to median and ulnar nerve. Able to flex/extend fingers. Minimal pain with passive range of motion of fingers. Good Cap refill. RLE: dressings with serous drainage, no erythema. thigh soft, neg homans. sensation intact. NVI. distal pulses palpable. Assessment & Plan Problem List: (1) Fracture, femur, shaft, open (2) Multiple fractures (3) Fracture, Colles, left, open (4) DRUJ (distal radioulnar joint) instability, post-traumatic (5) Closed fracture of midcervical section of femur Assessment and Plan 1) Right open forearm fracture with irrigation debridement s/p ORIF - POD 4 Dr Anaya -NWB -maintain splint 2) Right femoral neck and femoral shaft fractures status post intramedullary nail fixation; I&D R knee with closure of laceration POD [address] German Nonweightbearing right lower extremity. Progress ROM/strengthening with PT. Daily dressing changes, more often if necessary -lovenox -ortho surgeries complete -ortho cleared for discharge -CM for rehab placement. 3008 on chart, awaiting placement - pt does not have insurance. -f/u with Dr. German and Dr. Anaya or PA in 2 weeks -scripts on chart Annmarie Caal Apr 21, 2017 13:10
[2017-04-21] MEDS: REMOVE OLD PATCH T-DERMAL SCH (21:00)
[2017-04-22] VITALS: BP 141/69; PULSE 101; RESP 18; TEMP 98.9; O2SAT 97
[2017-04-22 04:00] VITALS: BP 128/71; PULSE 106; RESP 18; TEMP 98.9; O2SAT 97
[2017-04-22] MEDS: ACETAMINOPHEN/HYDROcodone 325 MG/10 MG TAB PO PRN ×5 (06:00→22:23)
[2017-04-22 08:00] VITALS: BP 124/59; PULSE 102; RESP 20; TEMP 98.3; O2SAT 97
[2017-04-22] MEDS: DOCUSATE SODIUM 50 MG/SENNA 8.6 MG TAB PO SCH ×2 (09:00→21:00)
[2017-04-22] MEDS: LACTULOSE SYRUP 20 GM/30 ML CUP PO SCH (09:00)
[2017-04-22] MEDS: SODIUM CHLORIDE 0.9% FLUSH 5 ML FLUSH IVF SCH ×2 (09:00→21:00)
[2017-04-22] MEDS: BACITRACIN TOP OINT 15 GM TUBE TOP SCH ×2 (09:00→21:14)
[2017-04-22] MEDS: MORPHINE SULFATE 8 MG/ML INJ IV PUSH PRN (09:09)
[2017-04-22] MEDS: NICOTINE 14 MG/24 HR PATCH T-DERMAL SCH (09:09)
[2017-04-22] MEDS: MULTIVITAMINS/MINERALS THERAPEUTIC TAB PO SCH (09:10)
[2017-04-22] MEDS: FAMOTIDINE 20 MG TAB PO SCH ×2 (09:10→21:12)
[2017-04-22] MEDS: GABAPENTIN 300 MG CAP PO SCH ×2 (09:10→14:08)
[2017-04-22] MEDS: ENOXAPARIN SODIUM 30 MG/0.3 ML SYRINGE SQ SCH ×2 (09:10→21:13)
[2017-04-22 12:00] VITALS: BP 137/74; PULSE 110; RESP 20; TEMP 97.6; O2SAT 98
--- NOTE | 2017-04-22 12:05 | PD.ORT.PN ---
Subjective Subjective Remarks 1) Right open forearm fracture with irrigation debridement s/p ORIF 2) Right femoral neck and femoral shaft fractures status post intramedullary nail fixation; I&D R knee with closure of laceration Pt laying comfortably in bed, accompanied by family. He states he has no insurance and is awaiting discharge. Pt feels comfortably being discharged home as long as he has assistance with wheelchair transfers. was provided information on where to receive a wheelchair from and she states she can not afford it, 'they have no money'. Objective Vitals Vital Signs Date Time Temp Pulse Resp B/P Pulse Ox O2 Delivery O2 Flow Rate FiO2 04/22/17 08:00 98.3 102 20 124/59 97 04/22/17 04:00 98.9 106 18 128/71 97 04/22/17 00:00 98.9 101 18 141/69 97 04/21/17 20:00 100.0 112 20 119/60 97 04/21/17 18:18 20 04/21/17 16:00 98.8 77 17 125/58 100 I/O 04/21/17 04/21/17 04/21/17 04/22/17 04/22/17 04/22/17 06:59 14:59 22:59 06:59 14:59 22:59 Intake Total 120 ml Output Total 20 ml 800 ml Balance 100 ml -800 ml Intake Oral 120 ml Output Urine Total 20 ml 800 ml # Voids 4 # Bowel Movements 0 0 Result Diagram: 04/21/17 0734 04/21/17 0734 Imaging Last 24 hours Impressions Pelvis X-Ray 04/15/171620 Signed Impressions: Service Date/Time: Saturday, April 15, 2017 15:57 - CONCLUSION: Right femoral neck fracture. Vinicius Mccray MD Head CT 04/15/171620 Signed Impressions: Service Date/Time: Saturday, April 15, 2017 16:34 - CONCLUSION: 1. Chronic sinusitis. 2. No acute intracranial process, trauma or fracture. Vinicius Mccray MD Chest X-Ray 04/15/171620 Signed Impressions: Service Date/Time: Saturday, April 15, 2017 15:57 - CONCLUSION: No acute cardiopulmonary process. Vinicius Mccray MD Chest CT 04/15/171620 Signed Impressions: Service Date/Time: Saturday, April 15, 2017 16:40 - CONCLUSION: 1. Patchy air space disease in the superior segment of both lower lobes, left worse than right. Findings are nonspecific and could represent pulmonary parenchymal contusions or early aspiration. 2. No acute thoracic fracture. Mediastinal vasculature is all intact. Vinicius Mccray MD Cervical Spine CT 04/15/17 1621 Signed Impressions: Service Date/Time: Saturday, April 15, 2017 16:34 - CONCLUSION: 1. Mild multilevel degenerative disc disease from C4-5 through C6-7 with some loss of height and marginal spurring. 2. No acute fracture or listhesis. Vinicius Mccray MD Abdomen/Pelvis CT 04/15/17 1621 Signed Impressions: Service Date/Time: Saturday, April 15, 2017 16:40 - CONCLUSION: 1. Displaced, simple fracture through the right femoral neck with apparent multiple fractures of the right hand and wrist. 2. Patchy airspace disease in the superior segments of both lower lobes. Findings are nonspecific and could represent pulmonary parenchymal contusion or early aspiration. 3. No acute abdominal or pelvic visceral trauma. Vinicius Mccray MD Procedures 1) Right open forearm fracture with irrigation debridement s/p ORIF 2) Right femoral neck and femoral shaft fractures status post intramedullary nail fixation; I&D R knee with closure of laceration Objective Remarks RUE: +long arm splint. NVI to median and ulnar nerve. Able to flex/extend fingers. Minimal pain with passive range of motion of fingers. Good Cap refill. RLE: dressings with serous drainage, no erythema. thigh soft, neg homans. sensation intact. NVI. distal pulses palpable. Assessment & Plan Problem List: (1) Fracture, femur, shaft, open (2) Multiple fractures (3) Fracture, Colles, left, open (4) DRUJ (distal radioulnar joint) instability, post-traumatic (5) Closed fracture of midcervical section of femur Assessment and Plan 1) Right open forearm fracture with irrigation debridement s/p ORIF - POD 5 Dr Anaya -[place] -maintain splint 2) Right femoral neck and femoral shaft fractures status post intramedullary nail fixation; I&D R knee with closure of laceration POD [address] German Nonweightbearing right lower extremity. Progress ROM/strengthening with PT. Daily dressing changes, more often if necessary -lovenox -ortho surgeries complete -ortho cleared for discharge -CM for rehab placement. 3008 on chart, awaiting placement - pt does not have insurance. Possible d/c to home if pt feels safe to do so. -f/u with Dr. German and Dr. Anaya or PA in 2 weeks -scripts on chart Annmarie Caal Apr 22, 2017 12:05
[2017-04-22 16:00] VITALS: BP 118/64; PULSE 114; RESP 20; TEMP 98.8; O2SAT 96
--- NOTE | 2017-04-22 16:52 | HHI.PR ---
Subjective Subjective Notes OOB today Pain better controlled, but still requiring IV Morphine Objective Vitals/I&O Vital Signs Date Time Temp Pulse Resp B/P Pulse Ox O2 Delivery O2 Flow Rate FiO2 04/22/17 12:00 97.6 110 20 137/74 98 04/21/17 09:20 21 04/18/17 07:30 Nasal Cannula 2.00 Radiology Last Impressions Chest X-Ray 04/17/17 0600 Signed Impressions: Service Date/Time: Monday, April 17, 2017 04:56 - CONCLUSION: Interim extubation. Trace bibasilar atelectasis. Sam Rogers MD Radius/Ulna X-Ray 04/17/17 0000 Signed Impressions: Service Date/Time: Monday, April 17, 2017 15:42 - CONCLUSION: Limited images as detailed above. Og Soto Jr., MD Pelvis X-Ray 04/15/17 162 Signed Impressions: Service Date/Time: Saturday, April 15, 2017 15:57 - CONCLUSION: Right femoral neck fracture. Vinicius Mccray MD Head CT 04/15/171620 Signed Impressions: Service Date/Time: Saturday, April 15, 2017 16:34 - CONCLUSION: 1. Chronic sinusitis. 2. No acute intracranial process, trauma or fracture. Vinicius Mccray MD Chest CT 04/15/171620 Signed Impressions: Service Date/Time: Saturday, April 15, 2017 16:40 - CONCLUSION: 1. Patchy air space disease in the superior segment of both lower lobes, left worse than right. Findings are nonspecific and could represent pulmonary parenchymal contusions or early aspiration. 2. No acute thoracic fracture. Mediastinal vasculature is all intact. Vinicius Mccray MD Cervical Spine CT 04/15/171620 Signed Impressions: Service Date/Time: Saturday, April 15, 2017 16:34 - CONCLUSION: 1. Mild multilevel degenerative disc disease from C4-5 through C6-7 with some loss of height and marginal spurring. 2. No acute fracture or listhesis. Vinicius Mccray MD Abdomen/Pelvis CT 04/15/171620 Signed Impressions: Service Date/Time: Saturday, April 15, 2017 16:40 - CONCLUSION: 1. Displaced, simple fracture through the right femoral neck with apparent multiple fractures of the right hand and wrist. 2. Patchy airspace disease in the superior segments of both lower lobes. Findings are nonspecific and could represent pulmonary parenchymal contusion or early aspiration. 3. No acute abdominal or pelvic visceral trauma. Vinicius Mccray MD Tibia/Fibula X-Ray 04/15/17 0000 Signed Impressions: Service Date/Time: Saturday, April 15, 2017 15:57 - CONCLUSION: No fracture. Vinicius Mccray MD Femur X-Ray 04/15/17 0000 Signed Impressions: Service Date/Time: Saturday, April 15, 2017 21:20 - CONCLUSION: Status post open rigid internal fixation. Adrien León MD Narrative Exam GENERAL: 36 -year-old well-nourished, well developed male lying in bed. SKIN: Warm and dry. HEAD: Normocephalic. NECK: Trachea midline. No JVD. CARDIOVASCULAR: Regular rate and rhythm. RESPIRATORY: No accessory muscle use. Lungs clear to auscultation. Breath sounds equal bilaterally. GASTROINTESTINAL: Abdomen soft, non-tender, nondistended. + BS. MUSCULOSKELETAL: Extremities without cyanosis, or edema. RUE soft splint in place. MAEW. NEUROLOGICAL: Awake and alert. Normal speech. A/P Problem List: (1) Multiple fractures (2) Fracture, femur, shaft, open (3) Fracture, Colles, left, open (4) DRUJ (distal radioulnar joint) instability, post-traumatic (5) Closed fracture of midcervical section of femur Assessment and Plan INJURIES: RIGHT open wrist /hand fx (Colle's fx) RIGHT femur fx 04/15: I&D and ORIF RIGHT femur. I&D RIGHT FA. 04/16: Extubated 04/17: ORIF RIGHT radius ulna PMHx: Tobacco use Diet: Regular Pulm: IS. Acapella, EZ-pap Nebs. Pain: [place], Morphine IV, Increased Neurontin, Added ibuprofen. Activity: OOB. PT 7 DAYS A WEEK. and OT ordered. (NWB RUE; NWB RLE) GI: Pepcid Bowel: Jeanne-colace. MOM. Lactulose daily. LBM: 04/21 DVT: SCD's. Lovenox 30 BID RIGHT open wrist /hand fx, RIGHT femur fx Orthopedics consulted and cleared for discharge 04/15: I&D and ORIF RIGHT femur. I&D RIGHT FA. 04/17: I&D and ORIF right radius and ulna Pain control Maintain RUE splint Elevate right leg PRN OOB- PT and OT ordered NWB RUE; NWB RLE DVT prophylaxis IV antibiotics: Gentamicin complete Plan of care discussed with patient and at bedside. Case management consulted to assist with discharge planning. PT recommends rehabilitation, but patient is self pay. [facility] has no [facility] beds. Plan for patient to discharge home once ambulating improved. Problem Qualifiers (1) Fracture, femur, shaft, open: (2) Fracture, Colles, left, open: (3) DRUJ (distal radioulnar joint) instability, post-traumatic: Qualified Code: M25.331 - DRUJ (distal radioulnar joint) instability, post- traumatic, right (4) Closed fracture of midcervical section of femur: Sheila Awad Apr 22, 2017 16:52
[2017-04-22] MEDS: IBUPROFEN 800 MG TAB PO SCH (18:35)
[2017-04-22] MEDS: GABAPENTIN 400 MG CAP PO SCH (18:36)
[2017-04-22 20:00] VITALS: BP 142/60; PULSE 107; RESP 18; TEMP 99; O2SAT 98
[2017-04-22] MEDS: REMOVE OLD PATCH T-DERMAL SCH (21:00)
[2017-04-23] VITALS: BP 137/63; PULSE 88; RESP 18; TEMP 98.4; O2SAT 98
[2017-04-23] MEDS: IBUPROFEN 800 MG TAB PO SCH ×3 (01:00→17:01)
[2017-04-23 04:00] VITALS: BP 115/69; PULSE 61; RESP 18; TEMP 96.4; O2SAT 97
[2017-04-23 08:00] VITALS: BP 134/70; PULSE 111; RESP 18; TEMP 97.7; O2SAT 97
[2017-04-23] MEDS: MULTIVITAMINS/MINERALS THERAPEUTIC TAB PO SCH (10:01)
[2017-04-23] MEDS: ACETAMINOPHEN/HYDROcodone 325 MG/10 MG TAB PO PRN ×3 (10:01→23:53)
[2017-04-23] MEDS: SODIUM CHLORIDE 0.9% FLUSH 5 ML FLUSH IVF SCH ×2 (10:01→21:00)
[2017-04-23] MEDS: FAMOTIDINE 20 MG TAB PO SCH ×2 (10:02→23:53)
[2017-04-23] MEDS: GABAPENTIN 400 MG CAP PO SCH ×3 (10:02→17:06)
[2017-04-23] MEDS: DOCUSATE SODIUM 50 MG/SENNA 8.6 MG TAB PO SCH ×2 (10:03→23:53)
[2017-04-23] MEDS: ENOXAPARIN SODIUM 30 MG/0.3 ML SYRINGE SQ SCH ×2 (10:05→23:54)
[2017-04-23] MEDS: LACTULOSE SYRUP 20 GM/30 ML CUP PO SCH ×2 (10:05→10:09)
[2017-04-23] MEDS: NICOTINE 14 MG/24 HR PATCH T-DERMAL SCH (10:06)
[2017-04-23] MEDS: REMOVE OLD PATCH T-DERMAL SCH (10:07)
[2017-04-23] MEDS: BACITRACIN TOP OINT 15 GM TUBE TOP SCH ×2 (10:07→23:55)
[2017-04-23 12:00] VITALS: BP 128/65; PULSE 111; RESP 18; TEMP 99.2; O2SAT 98
[2017-04-23 16:05] VITALS: BP 149/74; PULSE 111; RESP 20; TEMP 98.4; O2SAT 98
--- NOTE | 2017-04-23 16:25 | HHI.PR ---
Subjective Subjective Notes Pain better controlled Reports dizziness when standing Ambulated with a girlfriend assistance to bathroom Objective Vitals/I&O Vital Signs Date Time Temp Pulse Resp B/P Pulse Ox O2 Delivery O2 Flow Rate FiO2 04/23/17 16:05 98.4 111 20 149/74 98 04/21/17 09:20 21 Labs Laboratory Tests Test 04/21/17 07:34 White Blood Count 14.0 TH/MM3 Red Blood Count 3.09 MIL/MM3 Hemoglobin 9.9 GM/DL Hematocrit 28.6 % Mean Corpuscular Volume 92.4 FL Mean Corpuscular Hemoglobin 32.1 PG Mean Corpuscular Hemoglobin 34.8 % Concent Red Cell Distribution Width 14.1 % Platelet Count 377 TH/MM3 Mean Platelet Volume 6.9 FL Neutrophils (%) (Auto) 72.2 % Lymphocytes (%) (Auto) 11.6 % Monocytes (%) (Auto) 13.8 % Eosinophils (%) (Auto) 2.2 % Basophils (%) (Auto) 0.2 % Neutrophils # (Auto) 10.1 TH/MM3 Lymphocytes # (Auto) 1.6 TH/MM3 Monocytes # (Auto) 1.9 TH/MM3 Eosinophils # (Auto) 0.3 TH/MM3 Basophils # (Auto) 0.0 TH/MM3 CBC Comment AUTO DIFF Differential Total Cells 100 Counted Neutrophils % (Manual) 68 % Band Neutrophils % 5 % Lymphocytes % 8 % Monocytes % 10 % Eosinophils % 3 % Neutrophils # (Manual) 11.1 TH/MM3 Metamyelocytes 4 % Myelocytes 2 % Nucleated Red Blood Cells 5 /100 WBC Differential Comment FINAL DIFF MANUAL Platelet Estimate HIGH Platelet Morphology Comment NORMAL Sodium Level 138 MEQ/L Potassium Level 3.4 MEQ/L Chloride Level 103 MEQ/L Carbon Dioxide Level 29.1 MEQ/L Anion Gap 6 MEQ/L Blood Urea Nitrogen 13 MG/DL Creatinine 0.87 MG/DL Estimat Glomerular Filtration 121 ML/MIN Rate Random Glucose 104 MG/DL Calcium Level 8.5 MG/DL Total Bilirubin 0.8 MG/DL Aspartate Amino Transf 99 U/L (AST/SGOT) Alanine Aminotransferase 69 U/L (ALT/SGPT) Alkaline Phosphatase 44 U/L Total Protein 5.2 GM/DL Albumin 2.0 GM/DL Radiology Last Impressions Chest X-Ray 04/17/17 0600 Signed Impressions: Service Date/Time: Monday, April 17, 2017 04:56 - CONCLUSION: Interim extubation. Trace bibasilar atelectasis. Sam Rogers MD Radius/Ulna X-Ray 04/17/17 0000 Signed Impressions: Service Date/Time: Monday, April 17, 2017 15:42 - CONCLUSION: Limited images as detailed above. Og Soto Jr., MD Pelvis X-Ray 04/15/171620 Signed Impressions: Service Date/Time: Saturday, April 15, 2017 15:57 - CONCLUSION: Right femoral neck fracture. Vinicius Mccray MD Head CT 04/15/171620 Signed Impressions: Service Date/Time: Saturday, April 15, 2017 16:34 - CONCLUSION: 1. Chronic sinusitis. 2. No acute intracranial process, trauma or fracture. Vinicius Mccray MD Chest CT 04/15/171620 Signed Impressions: Service Date/Time: Saturday, April 15, 2017 16:40 - CONCLUSION: 1. Patchy air space disease in the superior segment of both lower lobes, left worse than right. Findings are nonspecific and could represent pulmonary parenchymal contusions or early aspiration. 2. No acute thoracic fracture. Mediastinal vasculature is all intact. Vinicius Mccray MD Cervical Spine CT 04/15/171620 Signed Impressions: Service Date/Time: Saturday, April 15, 2017 16:34 - CONCLUSION: 1. Mild multilevel degenerative disc disease from C4-5 through C6-7 with some loss of height and marginal spurring. 2. No acute fracture or listhesis. Vinicius Mccray MD Abdomen/Pelvis CT 04/15/171620 Signed Impressions: Service Date/Time: Saturday, April 15, 2017 16:40 - CONCLUSION: 1. Displaced, simple fracture through the right femoral neck with apparent multiple fractures of the right hand and wrist. 2. Patchy airspace disease in the superior segments of both lower lobes. Findings are nonspecific and could represent pulmonary parenchymal contusion or early aspiration. 3. No acute abdominal or pelvic visceral trauma. Vinicius Mccray MD Tibia/Fibula X-Ray 04/15/17 0000 Signed Impressions: Service Date/Time: Saturday, April 15, 2017 15:57 - CONCLUSION: No fracture. Vinicius Mccray MD Femur X-Ray 04/15/17 0000 Signed Impressions: Service Date/Time: Saturday, April 15, 2017 21:20 - CONCLUSION: Status post open rigid internal fixation. Adrien León MD Narrative Exam GENERAL: 36 -year-old well-nourished, well developed male lying in bed. SKIN: Warm and dry. HEAD: Normocephalic. ENT: No nasal bleeding or discharge. Mucous membranes pink and moist. NECK: Trachea midline. No JVD. CARDIOVASCULAR: Regular rate and rhythm. RESPIRATORY: No accessory muscle use. Lungs clear to auscultation. Breath sounds equal bilaterally. GASTROINTESTINAL: Abdomen soft, non-tender, nondistended. + BS. MUSCULOSKELETAL: Extremities without cyanosis, or edema. RUE soft splint in place. MAEW. NEUROLOGICAL: Awake and alert. Normal speech. A/P Problem List: (1) Multiple fractures (2) Fracture, femur, shaft, open (3) Fracture, Colles, left, open (4) DRUJ (distal radioulnar joint) instability, post-traumatic (5) Closed fracture of midcervical section of femur Assessment and Plan INJURIES: RIGHT open wrist /hand fx (Colle's fx) RIGHT femur fx 04/15: I&D and ORIF RIGHT femur. I&D RIGHT FA. 04/16: Extubated 04/17: ORIF RIGHT radius ulna PMHx: Tobacco use Diet: Regular Pulm: IS. Acapella, EZ-pap Nebs. Pain: [place], Morphine IV, Neurontin, ibuprofen. Activity: OOB. PT 7 DAYS A WEEK. and OT ordered. (NWB RUE; NWB RLE) GI: Pepcid Bowel: Jeanne-colace. MOM. Lactulose daily. LBM: 04/21 DVT: SCD's. Lovenox 30 BID RIGHT open wrist /hand fx, RIGHT femur fx Orthopedics consulted and cleared for discharge 04/15: I&D and ORIF RIGHT femur. I&D RIGHT FA. 04/17: I&D and ORIF right radius and ulna Pain control Maintain RUE splint Elevate right leg PRN OOB- PT and OT ordered. Ambulating with stand by assistance from PT. NWB RUE; NWB RLE DVT prophylaxis IV antibiotics: Gentamicin complete Added PRN Meclizine. Plan of care discussed with patient at bedside. Case management consulted to assist with discharge planning. Plan to discharge patient home tomorrow. Problem Qualifiers (1) Fracture, femur, shaft, open: (2) Fracture, Colles, left, open: (3) DRUJ (distal radioulnar joint) instability, post-traumatic: Qualified Code: M25.331 - DRUJ (distal radioulnar joint) instability, post- traumatic, right (4) Closed fracture of midcervical section of femur: Sheila Awad [facility] Apr 23, 2017 16:25
[2017-04-23] MEDS ORDERED: WALKER/FOLDING1 MIS (16:44)
[2017-04-23] MEDS ORDERED: MECLIZINE HCL 25 MG TAB PO PRN (16:45)
[2017-04-23 20:00] VITALS: BP 131/63; PULSE 105; RESP 20; TEMP 98.8; O2SAT 97
[2017-04-23 22:38] LABS: AUTOMATED NEUTROPHIL # 8.9 TH/MM3 (1.8-7.7); BASOPHIL # 0.1 TH/MM3 (0-0.2); BASOPHIL % 0.4 % (0.0-2.0); EOSINOPHIL # 0.4 TH/MM3 (0-0.4); EOSINOPHIL % 2.6 % (0.0-4.0); HEMATOCRIT 29.8 % (39.0-51.0); LYMPH % 18.5 % (9.0-44.0); LYMPHOCYTE # 2.6 TH/MM3 (1.0-4.8); MEAN CELL VOLUME 93.4 FL (80.0-100.0); MEAN CORPUSCULAR HEMOGLOBIN 32.9 PG (27.0-34.0); MEAN CORPUSCULAR HGB CONC 35.3 % (32.0-36.0); MONO % 14.2 % (0.0-8.0); NEUT % 64.3 % (16.0-70.0); PLATELET COUNT 512 TH/MM3 (150-450); RED BLOOD COUNT 3.19 MIL/MM3 (4.50-5.90); RED CELL DISTRIBUTION WIDTH 14.6 % (11.6-17.2); WHITE BLOOD COUNT 13.9 TH/MM3 (4.0-11.0)
[2017-04-23 22:43] LABS: HEMO FLAGS AUTO DIFF
[2017-04-23 23:10] LABS: ALKALINE PHOSPHATASE 55 U/L (45-117); ALT (GPT) 69 U/L (12-78); ANION GAP 5 MEQ/L (5-15); AST (GOT) 69 U/L (15-37); BICARBONATE 27.6 MEQ/L (21.0-32.0); BLOOD UREA NITROGEN 15 MG/DL (7-18); CHLORIDE 103 MEQ/L (98-107); GLOMERULAR FILTRATION RATE 105 ML/MIN (>89); POTASSIUM 4.3 MEQ/L (3.5-5.1); SODIUM (NA) 136 MEQ/L (136-145); TOTAL BILIRUBIN ADULT 0.8 MG/DL (0.2-1.0)
[2017-04-24] VITALS: BP_SYST 117; BP_SYST 121; BP_DIAS 66; BP_DIAS 68; PULSE 95; PULSE 97; RESP 20; TEMP 96.1; TEMP 97.5; O2SAT 93; O2SAT 99
[2017-04-24 00:02] LABS: BANDS 2 % (0-6); CORRECTED NUCLEATED RBC 2 /100 WBC (0-0); EOSINOPHILS 1 % (0-4); METAMYELOCYTES 1 % (0-1); MYELOCYTES 1 % (0-0); NEUTROPHIL # MANUAL DIFF 10.1 TH/MM3 (1.8-7.7); PLATELET ESTIMATE SMEAR HIGH (NORMAL); PLATELET MORPHOLOGY NORMAL (NORMAL); POLYS (SEG NEUTROPHILS) 69 % (16-70); SCAN/DIFF FINAL DIFF MANUAL; WBC DIFF SAMPLE 100
[2017-04-24 00:03] LABS: POLYCHROMASIA 3.6 % (0.0-1.9)
[2017-04-24] MEDS: ACETAMINOPHEN/HYDROcodone 325 MG/10 MG TAB PO PRN ×2 (03:15→08:17)
[2017-04-24] MEDS: IBUPROFEN 800 MG TAB PO SCH ×2 (03:15→09:07)
[2017-04-24 04:00] VITALS: BP 121/68; PULSE 95; RESP 20; TEMP 97.5; O2SAT 93
[2017-04-24 08:15] VITALS: BP 122/68; PULSE 89; RESP 20; TEMP 96.8; O2SAT 96
[2017-04-24] MEDS: BACITRACIN TOP OINT 15 GM TUBE TOP SCH (09:00)
[2017-04-24] MEDS: LACTULOSE SYRUP 20 GM/30 ML CUP PO SCH (09:00)
[2017-04-24] MEDS: DOCUSATE SODIUM 50 MG/SENNA 8.6 MG TAB PO SCH (09:00)
[2017-04-24] MEDS: SODIUM CHLORIDE 0.9% FLUSH 5 ML FLUSH IVF SCH (09:00)
[2017-04-24] MEDS: FAMOTIDINE 20 MG TAB PO SCH (09:07)
[2017-04-24] MEDS: MULTIVITAMINS/MINERALS THERAPEUTIC TAB PO SCH (09:07)
[2017-04-24] MEDS: GABAPENTIN 400 MG CAP PO SCH ×2 (09:07→12:57)
[2017-04-24] MEDS: ENOXAPARIN SODIUM 30 MG/0.3 ML SYRINGE SQ SCH (09:08)
[2017-04-24] MEDS: NICOTINE 14 MG/24 HR PATCH T-DERMAL SCH (09:08)
[2017-04-24 12:50] VITALS: BP 133/77; PULSE 105; RESP 20; TEMP 98.2; O2SAT 98
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
== END 2017-04-24 14:43 | disposition home or self-care (01) | DRG 956 ==
LOC: NEPI 16:00 → EDBD 17:19 → NEDA 17:19 → N03A 04-16 00:29 → N05A 04-18 15:54
PROVIDERS: ADMIT Surgery; ATTEND Surgery
PROC: 0PSK0ZZ Reposition Right Ulna, Open Approach (ICD-10-PCS; 2017-04-15)
PROC: 0JDN0ZZ Extraction of Right Lower Leg Subcutaneous Tissue and Fascia, Open Approach (ICD-10-PCS; 2017-04-15)
PROC: 0JDG0ZZ Extraction of Right Lower Arm Subcutaneous Tissue and Fascia, Open Approach (ICD-10-PCS; 2017-04-15)
PROC: 0HQKXZZ Repair Right Lower Leg Skin, External Approach (ICD-10-PCS; 2017-04-15)
PROC: 30233N1 Transfusion of Nonautologous Red Blood Cells into Peripheral Vein, Percutaneous Approach (ICD-10-PCS; 2017-04-15)
PROC: 0QS806Z Reposition Right Femoral Shaft with Intramedullary Internal Fixation Device, Open Approach (ICD-10-PCS; principal; 2017-04-15 19:04)
PROC: 0QS604Z Reposition Right Upper Femur with Internal Fixation Device, Open Approach (ICD-10-PCS; 2017-04-15 19:04)
PROC: 0PSH0ZZ Reposition Right Radius, Open Approach (ICD-10-PCS; 2017-04-15 19:04)
PROC: 0PSH04Z Reposition Right Radius with Internal Fixation Device, Open Approach (ICD-10-PCS; 2017-04-17)
PROC: 0PSK04Z Reposition Right Ulna with Internal Fixation Device, Open Approach (ICD-10-PCS; 2017-04-17)
PROC: 0RSN04Z Reposition Right Wrist Joint with Internal Fixation Device, Open Approach (ICD-10-PCS; 2017-04-17)
DX: S72.351C Displaced comminuted fracture of shaft of right femur, initial encounter for open fracture type IIIA, IIIB, or IIIC (principal); S27.329A Contusion of lung, unspecified, initial encounter; J96.00 Acute respiratory failure, unspecified whether with hypoxia or hypercapnia; I95.89 Other hypotension; S52.531B Colles' fracture of right radius, initial encounter for open fracture type I or II; S52.611B Displaced fracture of right ulna styloid process, initial encounter for open fracture type I or II; S72.031A Displaced midcervical fracture of right femur, initial encounter for closed fracture; S81.011A Laceration without foreign body, right knee, initial encounter; S63.014A Dislocation of distal radioulnar joint of right wrist, initial encounter; D72.829 Elevated white blood cell count, unspecified; R73.9 Hyperglycemia, unspecified; V27.4XXA Motorcycle driver injured in collision with fixed or stationary object in traffic accident, initial encounter; Y92.410 Unspecified street and highway as the place of occurrence of the external cause
CPT/HCPCS: 36430; 70450; 71010; 71260; 72125; 72170; 73090; 73551; 73552; 74177; 76000; 76937; 80048; 80053; 82435; 82565; 82805; 82947; 82948; 84132; 84155; 84295; 84520; 85007; 85025; 85027; 85610; 85730; 86850; 86900; 86901; 86920; 87641; 94002; 94003; 94150; 94640; 94664; 94667; 94668; C1713; J0131; J0690; J1100; J1170; J1580; J1650; J1815; J1885; J2060; J2250; J2270; J2370; J2405; J2710; J3010; J3370; J7030; J7040; J7050; J7120; P9016; Q9967

== ENCOUNTER 2017-04-25 08:26 | Observation (INO) | payer OTHER ==
[~2017-04-25] VITALS: Ht 167.6 cm; Wt 87.2 kg
[~2017-04-25 08:26] MED LIST changes: +HYDR-3288 PO; -LACTATED RINGER'S 1000 ML INJ 2,000 ML IV ONE; +MAGN400S PO; -NORMOSOL R INJ 3,000 ML IV ONE; -PHENYLEPH/NS 1000 MCG/10 ML SYR IV ONE; -PROPOFOL 200 MG/20 ML AMP IV ONE; +SENN1TAB PO; -SODIUM CHLOR 0.9% 250 ML INJ 250 ML IV ONE; -SODIUM CHLORID 0.9% 500 ML INJ 500 ML IV ONE; -VASOPRESSIN INJ 20 UNITS/ML VIAL IV ONE; +WALKER/FOLDING1 MIS; +WHEEMIS3
[2017-04-25 08:28] VITALS: BP 135/61; PULSE 110; RESP 28; TEMP 97.7; O2SAT 100
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
[2017-04-25] MEDS ORDERED: SODIUM CHLOR 0.9% 1000 ML INJ 1,000 ML IV ONE (09:30)
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
[2017-04-25] MEDS ORDERED: NALOXONE HCL 0.4 MG/ML AMP IV PRN (10:45)
[2017-04-25] MEDS ORDERED: ACETAMINOPHEN 325 MG TAB PO PRN ×2 (10:45)
[2017-04-25] MEDS ORDERED: SENNOSIDES 8.6 MG TAB PO PRN (10:45)
[2017-04-25] MEDS ORDERED: LACTULOSE SYRUP 20 GM/30 ML CUP PO PRN (10:45)
[2017-04-25] MEDS ORDERED: MAGNESIUM HYDROXIDE SUSP 30 ML CUP PO PRN (10:45)
[2017-04-25] MEDS ORDERED: ONDANSETRON HCL 4 MG/2 ML VIAL IVP PRN (10:45)
[2017-04-25] MEDS ORDERED: SODIUM CHLORIDE 0.9% FLUSH 10 ML FLUSH IV FLUSH PRN (10:45)
[2017-04-25] MEDS ORDERED: BISACODYL 10 MG SUPP RECTAL PRN (10:45)
[2017-04-25] MEDS ORDERED: MORPHINE SULFATE 4 MG/ML INJ IV PRN (10:45)
[2017-04-25 11:41] LABS: AUTOMATED NEUTROPHIL # 11.2 TH/MM3 (1.8-7.7); BASOPHIL # 0.1 TH/MM3 (0-0.2); BASOPHIL % 0.7 % (0.0-2.0); EOSINOPHIL # 0.2 TH/MM3 (0-0.4); EOSINOPHIL % 1.4 % (0.0-4.0); HEMATOCRIT 30.1 % (39.0-51.0); LYMPH % 9.6 % (9.0-44.0); LYMPHOCYTE # 1.4 TH/MM3 (1.0-4.8); MEAN CELL VOLUME 94.3 FL (80.0-100.0); MEAN CORPUSCULAR HEMOGLOBIN 31.3 PG (27.0-34.0); MEAN CORPUSCULAR HGB CONC 33.1 % (32.0-36.0); MONO % 13.4 % (0.0-8.0); NEUT % 74.9 % (16.0-70.0); PLATELET COUNT 584 TH/MM3 (150-450); RED BLOOD COUNT 3.19 MIL/MM3 (4.50-5.90); RED CELL DISTRIBUTION WIDTH 14.8 % (11.6-17.2); WHITE BLOOD COUNT 14.9 TH/MM3 (4.0-11.0)
[2017-04-25 11:45] LABS: HEMO FLAGS AUTO DIFF
[2017-04-25] MEDS ORDERED: ACETAMINOPHEN/HYDROcodone 325 MG/10 MG TAB PO ONE (12:00)
[2017-04-25 12:07] LABS: BICARBONATE 25.4 MEQ/L (21.0-32.0); POTASSIUM 4.3 MEQ/L (3.5-5.1)
[2017-04-25] MEDS: SODIUM CHLOR 0.9% 1000 ML INJ 1,000 ML IV SCH ×2 (12:16→21:04)
[2017-04-25] MEDS: SODIUM CHLORIDE 0.9% FLUSH 10 ML FLUSH IV FLUSH SCH ×2 (12:17→21:03)
[2017-04-25] MEDS: DOCUSATE SODIUM 50 MG/SENNA 8.6 MG TAB PO SCH ×2 (12:17→21:00)
[2017-04-25] MEDS: ENOXAPARIN SODIUM 40 MG/0.4 ML SYRINGE SQ SCH (12:18)
[2017-04-25] MEDS: REMOVE OLD PATCH T-DERMAL SCH (12:19)
[2017-04-25] MEDS: NICOTINE 14 MG/24 HR PATCH T-DERMAL SCH (12:19)
[2017-04-25 12:28] LABS: BANDS 9 % (0-6); CORRECTED NUCLEATED RBC 2 /100 WBC (0-0); EOSINOPHILS 3 % (0-4); METAMYELOCYTES 1 % (0-1); MYELOCYTES 3 % (0-0); NEUTROPHIL # MANUAL DIFF 10.3 TH/MM3 (1.8-7.7); PLATELET ESTIMATE SMEAR HIGH (NORMAL); PLATELET MORPHOLOGY NORMAL (NORMAL); POLYS (SEG NEUTROPHILS) 56 % (16-70); SCAN/DIFF FINAL DIFF MANUAL; WBC DIFF SAMPLE 100
[2017-04-25 13:40] VITALS: BP 147/60; PULSE 86; RESP 16; TEMP 98.1; O2SAT 98
[2017-04-25 14:53] VITALS: BP 129/66; PULSE 102; RESP 20; TEMP 97; O2SAT 99
[2017-04-25] MEDS: ACETAMINOPHEN/HYDROcodone 325 MG/10 MG TAB PO PRN ×2 (16:33→21:02)
--- NOTE | 2017-04-25 19:27 | RADRPT ---
EXAM DATE/TIME: 04/25/2017 18:41 [facility] COMPARISON: CHEST SINGLE AP, April 17, 2017, 17:40. INDICATIONS : Cough for a few days. MEDICAL HISTORY : None. SURGICAL HISTORY : None. ENCOUNTER: Initial ACUITY: 2 days PAIN SCORE: 0/10 LOCATION: Bilateral chest FINDINGS: A single view of the chest demonstrates the lungs to be symmetrically aerated without evidence of mas s, infiltrate or effusion. The cardiomediastinal contours are unremarkable. Osseous structures are intact. CONCLUSION: Normal examination. Maximino Aiken MD on April 25, 2017 at 19:25 Board Certified Radiologist. This report was verified electronically.
[2017-04-25 20:00] VITALS: BP 124/65; PULSE 113; RESP 18; TEMP 98.6; O2SAT 99
[2017-04-25] MEDS ORDERED: REMOVE OLD PATCH T-DERMAL SCH (21:00)
[2017-04-25 22:33] LABS: BLOOD, URINE NEG (NEG); COMMENT (UR) CULT NOT INDICATED; CULTURE IF INDICATED CULT NOT INDICATED; GLUCOSE,URINE NEG (NEG); KETONE, URINE NEG (NEG); MUCUS URINE FEW /lpf (OCC); NITRITE,URINE NEG (NEG); PH, URINE 6.5 (5.0-8.5); URINE COLOR YELLOW (YELLW/STRAW)
[2017-04-26] VITALS (8 sets, daily range): BP systolic 117–140; BP diastolic 59–71; PULSE 97–105; RESP 16–20; TEMP 97.4–98.9; O2SAT 21–99
[2017-04-26 08:42] LABS: AUTOMATED NEUTROPHIL # 8.2 TH/MM3 (1.8-7.7); BASOPHIL # 0.1 TH/MM3 (0-0.2); BASOPHIL % 0.9 % (0.0-2.0); EOSINOPHIL # 0.3 TH/MM3 (0-0.4); EOSINOPHIL % 2.6 % (0.0-4.0); HEMATOCRIT 30.9 % (39.0-51.0); HEMO FLAGS DIFF FINAL; LYMPH % 13.7 % (9.0-44.0); LYMPHOCYTE # 1.6 TH/MM3 (1.0-4.8); MEAN CORPUSCULAR HEMOGLOBIN 32.6 PG (27.0-34.0); MONO % 13.8 % (0.0-8.0); PLATELET COUNT 599 TH/MM3 (150-450); RED BLOOD COUNT 3.32 MIL/MM3 (4.50-5.90)
[2017-04-26 08:49] LABS: BICARBONATE 22.4 MEQ/L (21.0-32.0); POTASSIUM 5.1 MEQ/L (3.5-5.1)
[2017-04-26] MEDS: GABAPENTIN 400 MG CAP PO SCH ×3 (09:54→17:08)
[2017-04-26] MEDS: DOCUSATE SODIUM 50 MG/SENNA 8.6 MG TAB PO SCH ×2 (09:54→20:23)
[2017-04-26] MEDS: NICOTINE 14 MG/24 HR PATCH T-DERMAL SCH (09:55)
[2017-04-26] MEDS: REMOVE OLD PATCH T-DERMAL SCH (09:55)
[2017-04-26] MEDS: SODIUM CHLORIDE 0.9% FLUSH 10 ML FLUSH IV FLUSH SCH ×2 (09:56→20:24)
[2017-04-26] MEDS: ACETAMINOPHEN/HYDROcodone 325 MG/10 MG TAB PO PRN ×2 (09:56→17:09)
[2017-04-26] MEDS ORDERED: BACITRACIN TOP OINT 15 GM TUBE TOPICAL ONE (10:00)
[2017-04-26] MEDS: ENOXAPARIN SODIUM 40 MG/0.4 ML SYRINGE SQ SCH (12:56)
[2017-04-26] MEDS: SODIUM CHLOR 0.9% 1000 ML INJ 1,000 ML IV SCH (13:01)
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
[2017-04-27] VITALS (7 sets, daily range): BP systolic 108–128; BP diastolic 53–71; PULSE 90–97; RESP 16–17; TEMP 97.3–98.4; O2SAT 95–98
[2017-04-27] MEDS: ACETAMINOPHEN/HYDROcodone 325 MG/10 MG TAB PO PRN ×6 (01:04→22:55)
[2017-04-27 07:02] LABS: AUTOMATED NEUTROPHIL # 7.2 TH/MM3 (1.8-7.7); BASOPHIL # 0.1 TH/MM3 (0-0.2); BASOPHIL % 0.6 % (0.0-2.0); EOSINOPHIL # 0.3 TH/MM3 (0-0.4); EOSINOPHIL % 2.5 % (0.0-4.0); HEMATOCRIT 30.4 % (39.0-51.0); LYMPH % 18.8 % (9.0-44.0); LYMPHOCYTE # 2.1 TH/MM3 (1.0-4.8); MEAN CORPUSCULAR HEMOGLOBIN 32.5 PG (27.0-34.0); MEAN CORPUSCULAR HGB CONC 34.3 % (32.0-36.0); MONO % 12.7 % (0.0-8.0); NEUT % 65.4 % (16.0-70.0); PLATELET COUNT 627 TH/MM3 (150-450); RED CELL DISTRIBUTION WIDTH 14.9 % (11.6-17.2); WHITE BLOOD COUNT 10.9 TH/MM3 (4.0-11.0)
[2017-04-27 07:05] LABS: HEMO FLAGS AUTO DIFF
[2017-04-27 09:18] LABS: CORRECTED NUCLEATED RBC 1 /100 WBC (0-0); EOSINOPHILS 5 % (0-4); MYELOCYTES 3 % (0-0); NEUTROPHIL # MANUAL DIFF 7.2 TH/MM3 (1.8-7.7); POLYS (SEG NEUTROPHILS) 63 % (16-70); WBC DIFF SAMPLE 100
[2017-04-27 09:19] LABS: PLATELET ESTIMATE SMEAR HIGH (NORMAL); PLATELET MORPHOLOGY NORMAL (NORMAL); SCAN/DIFF FINAL DIFF MANUAL
[2017-04-27 09:20] LABS: POLYCHROMASIA 3.6 % (0.0-1.9)
[2017-04-27] MEDS: GABAPENTIN 400 MG CAP PO SCH ×3 (09:24→20:44)
[2017-04-27] MEDS: DOCUSATE SODIUM 50 MG/SENNA 8.6 MG TAB PO SCH ×2 (09:26→20:45)
[2017-04-27] MEDS: SODIUM CHLORIDE 0.9% FLUSH 10 ML FLUSH IV FLUSH SCH ×2 (09:26→20:44)
[2017-04-27] MEDS: NICOTINE 14 MG/24 HR PATCH T-DERMAL SCH (09:29)
[2017-04-27] MEDS: REMOVE OLD PATCH T-DERMAL SCH (09:29)
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
[2017-04-27] MEDS: ENOXAPARIN SODIUM 40 MG/0.4 ML SYRINGE SQ SCH (13:26)
[2017-04-27] MEDS ORDERED: GABAPENTIN 400 MG CAP PO SCH (15:00)
[2017-04-27] MEDS ORDERED: GABAPENTIN 300 MG CAP PO SCH (15:00)
[2017-04-28] VITALS (7 sets, daily range): BP systolic 115–127; BP diastolic 61–70; PULSE 85–96; RESP 15–18; TEMP 95.2–98.7; O2SAT 96–98
[2017-04-28] MEDS: ACETAMINOPHEN/HYDROcodone 325 MG/10 MG TAB PO PRN ×5 (03:11→20:45)
[2017-04-28] MEDS: GABAPENTIN 400 MG CAP PO SCH ×3 (08:04→20:43)
[2017-04-28] MEDS: DOCUSATE SODIUM 50 MG/SENNA 8.6 MG TAB PO SCH ×2 (08:05→20:45)
[2017-04-28] MEDS: NICOTINE 14 MG/24 HR PATCH T-DERMAL SCH (08:05)
[2017-04-28] MEDS: REMOVE OLD PATCH T-DERMAL SCH (08:05)
[2017-04-28] MEDS: SODIUM CHLORIDE 0.9% FLUSH 10 ML FLUSH IV FLUSH SCH ×2 (08:05→20:43)
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
[2017-04-28] MEDS: ENOXAPARIN SODIUM 40 MG/0.4 ML SYRINGE SQ SCH (11:55)
[2017-04-29] VITALS (7 sets, daily range): BP systolic 118–138; BP diastolic 58–79; PULSE 84–103; RESP 15–18; TEMP 96.8–100.3; O2SAT 96–99
[2017-04-29] MEDS: ACETAMINOPHEN/HYDROcodone 325 MG/10 MG TAB PO PRN ×5 (00:51→20:00)
[2017-04-29] MEDS: SODIUM CHLORIDE 0.9% FLUSH 10 ML FLUSH IV FLUSH SCH ×2 (09:00→20:02)
[2017-04-29] MEDS: DOCUSATE SODIUM 50 MG/SENNA 8.6 MG TAB PO SCH ×2 (09:00→19:59)
[2017-04-29] MEDS: GABAPENTIN 400 MG CAP PO SCH ×3 (09:00→19:59)
[2017-04-29] MEDS: REMOVE OLD PATCH T-DERMAL SCH (09:00)
[2017-04-29] MEDS: NICOTINE 14 MG/24 HR PATCH T-DERMAL SCH (09:00)
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
[2017-04-29] MEDS: ENOXAPARIN SODIUM 40 MG/0.4 ML SYRINGE SQ SCH (13:40)
[2017-04-30] VITALS: BP 123/59; PULSE 95; RESP 16; TEMP 98.8; O2SAT 95
[2017-04-30] MEDS: ACETAMINOPHEN/HYDROcodone 325 MG/10 MG TAB PO PRN ×4 (03:45→23:12)
[2017-04-30 04:00] VITALS: BP 120/68; PULSE 90; RESP 16; TEMP 97.7; O2SAT 97
[2017-04-30 08:00] VITALS: BP 134/59; PULSE 94; TEMP 97.8; O2SAT 97
[2017-04-30] MEDS: REMOVE OLD PATCH T-DERMAL SCH (09:00)
[2017-04-30] MEDS: DOCUSATE SODIUM 50 MG/SENNA 8.6 MG TAB PO SCH ×2 (09:00→23:09)
[2017-04-30] MEDS: NICOTINE 14 MG/24 HR PATCH T-DERMAL SCH (09:00)
[2017-04-30] MEDS: SODIUM CHLORIDE 0.9% FLUSH 10 ML FLUSH IV FLUSH SCH ×2 (09:10→23:13)
[2017-04-30] MEDS: GABAPENTIN 400 MG CAP PO SCH (09:10)
[2017-04-30 12:00] VITALS: BP_SYST 117; BP_SYST 123; BP_SYST 94; BP_DIAS 62; BP_DIAS 68; BP_DIAS 69; PULSE 98; RESP 18; TEMP 97.8; O2SAT 100
[2017-04-30] MEDS: ENOXAPARIN SODIUM 40 MG/0.4 ML SYRINGE SQ SCH (13:16)
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
[2017-04-30 16:00] VITALS: BP 126/67; PULSE 105; RESP 15; TEMP 99.2; O2SAT 95
[2017-04-30 20:00] VITALS: BP 133/72; PULSE 115; RESP 20; TEMP 98.3; O2SAT 98
[2017-04-30] MEDS: GABAPENTIN 100 MG CAP PO SCH (23:09)
[2017-05-01] VITALS: BP 126/66; PULSE 95; RESP 18; TEMP 98.3; O2SAT 97
[2017-05-01 05:00] VITALS: BP 121/65; PULSE 90; RESP 16; TEMP 98; O2SAT 96
[2017-05-01] MEDS: ACETAMINOPHEN/HYDROcodone 325 MG/10 MG TAB PO PRN ×5 (05:08→22:57)
[2017-05-01 07:50] VITALS: BP 113/59; PULSE 92; RESP 20; TEMP 96.8; O2SAT 98
[2017-05-01] MEDS: DOCUSATE SODIUM 50 MG/SENNA 8.6 MG TAB PO SCH ×2 (09:24→21:00)
[2017-05-01] MEDS: GABAPENTIN 100 MG CAP PO SCH ×2 (09:25→22:55)
[2017-05-01] MEDS: SODIUM CHLORIDE 0.9% FLUSH 10 ML FLUSH IV FLUSH SCH ×2 (09:27→22:58)
[2017-05-01 11:50] VITALS: BP 115/66; PULSE 92; RESP 20; TEMP 97.2; O2SAT 98
[2017-05-01] MEDS: ENOXAPARIN SODIUM 40 MG/0.4 ML SYRINGE SQ SCH (13:23)
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
[2017-05-01 15:00] VITALS: BP 130/67; PULSE 92; RESP 20; TEMP 98.4; O2SAT 99
[2017-05-01] MEDS: REMOVE OLD PATCH T-DERMAL SCH (18:02)
[2017-05-01] MEDS: NICOTINE 14 MG/24 HR PATCH T-DERMAL SCH (18:02)
[2017-05-01 20:00] VITALS: BP 118/70; PULSE 105; RESP 16; TEMP 97.3; O2SAT 97
[2017-05-02] VITALS: BP 129/62; PULSE 90; RESP 16; TEMP 97.9; O2SAT 98
[2017-05-02] MEDS: ACETAMINOPHEN/HYDROcodone 325 MG/10 MG TAB PO PRN ×5 (03:37→22:33)
[2017-05-02 04:00] VITALS: BP 112/62; PULSE 90; RESP 16; TEMP 98; O2SAT 96
[2017-05-02 07:50] VITALS: BP 111/60; PULSE 90; RESP 20; TEMP 96.7; O2SAT 96
[2017-05-02] MEDS: REMOVE OLD PATCH T-DERMAL SCH (08:00)
[2017-05-02] MEDS: GABAPENTIN 100 MG CAP PO SCH ×2 (08:00→20:42)
[2017-05-02] MEDS: DOCUSATE SODIUM 50 MG/SENNA 8.6 MG TAB PO SCH ×2 (08:00→20:42)
[2017-05-02] MEDS: SODIUM CHLORIDE 0.9% FLUSH 10 ML FLUSH IV FLUSH SCH ×2 (08:00→20:43)
[2017-05-02] MEDS: NICOTINE 14 MG/24 HR PATCH T-DERMAL SCH (08:01)
[2017-05-02 11:50] VITALS: BP 112/64; PULSE 83; RESP 20; TEMP 98.1; O2SAT 98
[2017-05-02] MEDS: ENOXAPARIN SODIUM 40 MG/0.4 ML SYRINGE SQ SCH (14:02)
[2017-05-02 15:50] VITALS: BP 117/61; PULSE 90; RESP 20; TEMP 98.9; O2SAT 98
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
[2017-05-02 20:00] VITALS: BP 131/67; PULSE 98; RESP 16; TEMP 98.7; O2SAT 98
[2017-05-03] VITALS: BP 118/64; PULSE 89; RESP 16; TEMP 98.8; O2SAT 96
[2017-05-03 04:00] VITALS: BP 120/60; PULSE 87; RESP 16; TEMP 98.6; O2SAT 95
[2017-05-03] MEDS: ACETAMINOPHEN/HYDROcodone 325 MG/10 MG TAB PO PRN ×5 (04:07→21:38)
[2017-05-03 08:00] VITALS: BP 123/63; PULSE 86; RESP 20; TEMP 97.9; O2SAT 95
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
[2017-05-03] MEDS: REMOVE OLD PATCH T-DERMAL SCH (09:00)
[2017-05-03] MEDS: NICOTINE 14 MG/24 HR PATCH T-DERMAL SCH (09:00)
[2017-05-03] MEDS: DOCUSATE SODIUM 50 MG/SENNA 8.6 MG TAB PO SCH ×2 (09:10→21:00)
[2017-05-03] MEDS: GABAPENTIN 100 MG CAP PO SCH ×3 (09:11→17:41)
[2017-05-03] MEDS: SODIUM CHLORIDE 0.9% FLUSH 10 ML FLUSH IV FLUSH SCH ×2 (09:12→21:38)
[2017-05-03 12:49] VITALS: BP 114/56; PULSE 88; RESP 20; TEMP 97.4; O2SAT 97
[2017-05-03] MEDS: ENOXAPARIN SODIUM 40 MG/0.4 ML SYRINGE SQ SCH (13:54)
[2017-05-03 20:00] VITALS: BP 111/61; PULSE 101; RESP 16; TEMP 97.8; O2SAT 99
[2017-05-04] VITALS: BP 113/57; PULSE 89; RESP 16; TEMP 98.6; O2SAT 95
[2017-05-04 04:00] VITALS: BP 114/61; PULSE 90; RESP 16; TEMP 98.4; O2SAT 97
[2017-05-04] MEDS: ACETAMINOPHEN/HYDROcodone 325 MG/10 MG TAB PO PRN ×4 (04:08→18:32)
[2017-05-04 08:00] VITALS: BP 117/74; PULSE 85; RESP 20; TEMP 97.8; O2SAT 97
[2017-05-04] MEDS: GABAPENTIN 100 MG CAP PO SCH ×3 (08:54→18:32)
[2017-05-04] MEDS: DOCUSATE SODIUM 50 MG/SENNA 8.6 MG TAB PO SCH ×2 (08:55→20:01)
[2017-05-04] MEDS: NICOTINE 14 MG/24 HR PATCH T-DERMAL SCH (09:00)
[2017-05-04] MEDS: REMOVE OLD PATCH T-DERMAL SCH (09:00)
[2017-05-04] MEDS: SODIUM CHLORIDE 0.9% FLUSH 10 ML FLUSH IV FLUSH SCH ×2 (09:00→20:03)
[2017-05-04 12:00] VITALS: BP 126/68; PULSE 87; RESP 16; TEMP 97.8; O2SAT 98
[2017-05-04] MEDS: ENOXAPARIN SODIUM 40 MG/0.4 ML SYRINGE SQ SCH (13:14)
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
[2017-05-04 16:45] VITALS: BP 132/66; PULSE 86; RESP 14; TEMP 98.6; O2SAT 99
[2017-05-04 20:00] VITALS: BP 124/71; PULSE 86; RESP 18; TEMP 97.3; O2SAT 100
[2017-05-05] VITALS: BP 134/77; PULSE 86; RESP 18; TEMP 97.8; O2SAT 100
[2017-05-05] MEDS: ACETAMINOPHEN/HYDROcodone 325 MG/10 MG TAB PO PRN ×5 (00:02→23:12)
[2017-05-05 04:00] VITALS: BP 130/79; PULSE 89; RESP 18; TEMP 97.6; O2SAT 99
[2017-05-05 07:56] LABS: AUTOMATED NEUTROPHIL # 4.2 TH/MM3 (1.8-7.7); BASOPHIL # 0.1 TH/MM3 (0-0.2); EOSINOPHIL # 0.4 TH/MM3 (0-0.4); EOSINOPHIL % 5.2 % (0.0-4.0); HEMATOCRIT 33.7 % (39.0-51.0); HEMO FLAGS DIFF FINAL; LYMPH % 19.3 % (9.0-44.0); LYMPHOCYTE # 1.4 TH/MM3 (1.0-4.8); MEAN CELL VOLUME 92.1 FL (80.0-100.0); MEAN CORPUSCULAR HEMOGLOBIN 31.9 PG (27.0-34.0); MEAN CORPUSCULAR HGB CONC 34.6 % (32.0-36.0); MONO % 15.8 % (0.0-8.0); NEUT % 58.7 % (16.0-70.0); PLATELET COUNT 508 TH/MM3 (150-450); RED BLOOD COUNT 3.66 MIL/MM3 (4.50-5.90); RED CELL DISTRIBUTION WIDTH 14.9 % (11.6-17.2); WHITE BLOOD COUNT 7.1 TH/MM3 (4.0-11.0)
[2017-05-05 08:00] VITALS: BP 127/76; PULSE 98; RESP 18; TEMP 97; O2SAT 99
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
[2017-05-05] MEDS: DOCUSATE SODIUM 50 MG/SENNA 8.6 MG TAB PO SCH ×2 (08:09→21:00)
[2017-05-05] MEDS: GABAPENTIN 100 MG CAP PO SCH ×3 (08:09→17:55)
[2017-05-05] MEDS: NICOTINE 14 MG/24 HR PATCH T-DERMAL SCH (08:10)
[2017-05-05] MEDS: REMOVE OLD PATCH T-DERMAL SCH (08:10)
[2017-05-05] MEDS: SODIUM CHLORIDE 0.9% FLUSH 10 ML FLUSH IV FLUSH SCH ×2 (08:11→23:12)
[2017-05-05 08:16] LABS: ANION GAP 8 MEQ/L (5-15); AST (GOT) 19 U/L (15-37); BICARBONATE 26.4 MEQ/L (21.0-32.0); BLOOD UREA NITROGEN 12 MG/DL (7-18); CHLORIDE 103 MEQ/L (98-107); GLOMERULAR FILTRATION RATE 101 ML/MIN (>89); POTASSIUM 3.8 MEQ/L (3.5-5.1); SODIUM (NA) 137 MEQ/L (136-145)
[2017-05-05 08:17] LABS: ALT (GPT) 24 U/L (12-78)
[2017-05-05 08:19] LABS: ALKALINE PHOSPHATASE 67 U/L (45-117); TOTAL BILIRUBIN ADULT 0.6 MG/DL (0.2-1.0)
[2017-05-05 12:00] VITALS: BP 122/77; PULSE 96; RESP 18; TEMP 97.5; O2SAT 99
[2017-05-05] MEDS: ENOXAPARIN SODIUM 40 MG/0.4 ML SYRINGE SQ SCH (12:29)
[2017-05-05 16:00] VITALS: BP 122/74; PULSE 82; RESP 16; TEMP 98; O2SAT 99
[2017-05-05 20:00] VITALS: BP 121/70; PULSE 84; RESP 17; TEMP 97.7; O2SAT 97
[2017-05-06] VITALS: BP 120/70; PULSE 86; RESP 18; TEMP 97; O2SAT 99
[2017-05-06 04:00] VITALS: BP 123/72; PULSE 85; RESP 17; TEMP 97.3; O2SAT 98
[2017-05-06] MEDS: ACETAMINOPHEN/HYDROcodone 325 MG/10 MG TAB PO PRN ×6 (04:11→23:28)
[2017-05-06 07:50] VITALS: BP 127/65; PULSE 97; RESP 20; TEMP 96.2; O2SAT 98
[2017-05-06] MEDS: DOCUSATE SODIUM 50 MG/SENNA 8.6 MG TAB PO SCH ×2 (08:31→21:00)
[2017-05-06] MEDS: GABAPENTIN 100 MG CAP PO SCH ×3 (08:31→18:20)
[2017-05-06] MEDS: REMOVE OLD PATCH T-DERMAL SCH (08:31)
[2017-05-06] MEDS: SODIUM CHLORIDE 0.9% FLUSH 10 ML FLUSH IV FLUSH SCH ×2 (08:31→23:29)
[2017-05-06] MEDS: NICOTINE 14 MG/24 HR PATCH T-DERMAL SCH (08:31)
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
[2017-05-06 11:50] VITALS: BP 117/66; PULSE 82; RESP 20; TEMP 98.5
[2017-05-06] MEDS: ENOXAPARIN SODIUM 40 MG/0.4 ML SYRINGE SQ SCH (13:37)
[2017-05-06 15:50] VITALS: BP 126/59; PULSE 84; RESP 20; TEMP 98.5; O2SAT 98
[2017-05-06 20:00] VITALS: BP 125/69; PULSE 89; RESP 18; TEMP 99.5; O2SAT 98
[2017-05-07] VITALS: BP 116/66; PULSE 88; RESP 17; TEMP 98.9; O2SAT 98
[2017-05-07] MEDS: ACETAMINOPHEN/HYDROcodone 325 MG/10 MG TAB PO PRN ×5 (03:29→22:01)
[2017-05-07 04:00] VITALS: BP 117/65; PULSE 79; RESP 18; TEMP 98.1; O2SAT 99
[2017-05-07 08:00] VITALS: BP 117/68; PULSE 75; RESP 14; TEMP 97.5; O2SAT 100
[2017-05-07] MEDS: GABAPENTIN 100 MG CAP PO SCH ×3 (08:42→18:07)
[2017-05-07] MEDS: DOCUSATE SODIUM 50 MG/SENNA 8.6 MG TAB PO SCH ×2 (08:43→20:14)
[2017-05-07] MEDS: SODIUM CHLORIDE 0.9% FLUSH 10 ML FLUSH IV FLUSH SCH ×2 (08:43→20:15)
[2017-05-07] MEDS: NICOTINE 14 MG/24 HR PATCH T-DERMAL SCH (08:44)
[2017-05-07] MEDS: REMOVE OLD PATCH T-DERMAL SCH (08:44)
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
[2017-05-07 12:00] VITALS: BP 128/72; PULSE 84; RESP 14; TEMP 97.9; O2SAT 100
[2017-05-07] MEDS: ENOXAPARIN SODIUM 40 MG/0.4 ML SYRINGE SQ SCH (14:06)
[2017-05-07 16:00] VITALS: BP 127/62; PULSE 86; RESP 16; TEMP 98; O2SAT 97
[2017-05-07 20:00] VITALS: BP 129/61; PULSE 85; RESP 18; TEMP 99; O2SAT 99
[2017-05-08] VITALS: BP 108/56; PULSE 82; RESP 18; TEMP 98; O2SAT 98
[2017-05-08] MEDS: ACETAMINOPHEN/HYDROcodone 325 MG/10 MG TAB PO PRN ×5 (03:31→22:23)
[2017-05-08 04:00] VITALS: BP 111/58; PULSE 76; RESP 17; TEMP 97.5; O2SAT 99
[2017-05-08] MEDS: GABAPENTIN 100 MG CAP PO SCH ×3 (07:50→18:15)
[2017-05-08] MEDS: SODIUM CHLORIDE 0.9% FLUSH 10 ML FLUSH IV FLUSH SCH ×2 (07:51→20:02)
[2017-05-08] MEDS: DOCUSATE SODIUM 50 MG/SENNA 8.6 MG TAB PO SCH ×2 (07:51→20:01)
[2017-05-08] MEDS: NICOTINE 14 MG/24 HR PATCH T-DERMAL SCH (07:59)
[2017-05-08] MEDS: REMOVE OLD PATCH T-DERMAL SCH (07:59)
[2017-05-08 08:00] VITALS: BP 128/75; PULSE 89; RESP 18; TEMP 97.2; O2SAT 99
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
[2017-05-08 12:00] VITALS: BP 119/68; PULSE 83; RESP 18; TEMP 97.8; O2SAT 99
[2017-05-08] MEDS: ENOXAPARIN SODIUM 40 MG/0.4 ML SYRINGE SQ SCH (12:23)
[2017-05-08] MEDS: TOBRAMYCIN 0.3%/DEXAMETHASONE 0.1% OPHT SUSP 5 ML BTL SCH ×2 (12:30→18:17)
[2017-05-08 16:00] VITALS: BP 115/62; PULSE 82; RESP 18; TEMP 97.9; O2SAT 99
[2017-05-08 20:00] VITALS: BP 129/74; PULSE 82; RESP 18; TEMP 98.5; O2SAT 98
[2017-05-09] VITALS: BP 118/64; PULSE 78; RESP 18; TEMP 98.1; O2SAT 98
[2017-05-09] MEDS: TOBRAMYCIN 0.3%/DEXAMETHASONE 0.1% OPHT SUSP 5 ML BTL SCH ×4 (00:06→18:15)
[2017-05-09 04:00] VITALS: BP 120/65; PULSE 77; RESP 18; TEMP 98.1; O2SAT 96
[2017-05-09] MEDS: ACETAMINOPHEN/HYDROcodone 325 MG/10 MG TAB PO PRN ×4 (05:19→22:34)
[2017-05-09 07:50] VITALS: BP 122/70; PULSE 77; RESP 20; TEMP 97.5; O2SAT 99
[2017-05-09] MEDS: REMOVE OLD PATCH T-DERMAL SCH (09:00)
[2017-05-09] MEDS: NICOTINE 14 MG/24 HR PATCH T-DERMAL SCH (09:00)
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
[2017-05-09] MEDS: DOCUSATE SODIUM 50 MG/SENNA 8.6 MG TAB PO SCH ×2 (09:58→21:00)
[2017-05-09] MEDS: GABAPENTIN 100 MG CAP PO SCH ×3 (09:58→18:14)
[2017-05-09] MEDS: SODIUM CHLORIDE 0.9% FLUSH 10 ML FLUSH IV FLUSH SCH (10:00)
[2017-05-09 11:30] VITALS: BP 122/62; PULSE 86; RESP 20; TEMP 98.4; O2SAT 98
[2017-05-09] MEDS: ENOXAPARIN SODIUM 40 MG/0.4 ML SYRINGE SQ SCH (13:35)
[2017-05-09 15:30] VITALS: BP 120/71; PULSE 91; RESP 20; TEMP 96.2; O2SAT 98
[2017-05-09 20:00] VITALS: BP 128/70; PULSE 87; RESP 18; TEMP 96.4; O2SAT 98
[2017-05-10] VITALS (7 sets, daily range): BP systolic 119–128; BP diastolic 55–75; PULSE 76–85; RESP 16–18; TEMP 96.8–98.5; O2SAT 97–100
[2017-05-10] MEDS: TOBRAMYCIN 0.3%/DEXAMETHASONE 0.1% OPHT SUSP 5 ML BTL SCH ×5 (00:06→23:57)
[2017-05-10] MEDS: SODIUM CHLORIDE 0.9% FLUSH 10 ML FLUSH IV FLUSH SCH ×3 (00:08→21:00)
[2017-05-10] MEDS: ACETAMINOPHEN/HYDROcodone 325 MG/10 MG TAB PO PRN ×4 (05:42→22:08)
--- NOTE | 2017-05-10 08:04 | PD.ORT.PN ---
Subjective Subjective Remarks still has intermittent shooting pains in RLE. Objective Vitals Vital Signs Date Time Temp Pulse Resp B/P Pulse Ox O2 Delivery O2 Flow Rate FiO2 05/10/17 05:07 97.5 77 17 128/67 100 05/10/17 01:06 97.0 76 18 126/75 100 05/10/17 00:00 98.2 85 17 119/55 97 05/09/17 20:00 96.4 87 18 128/70 98 05/09/17 15:30 96.2 91 20 120/71 98 05/09/17 11:30 98.4 86 20 122/62 98 I/O 05/09/17 05/09/17 05/09/17 05/10/17 05/10/17 05/10/17 07:00 15:00 23:00 07:00 15:00 23:00 Intake Total 240 ml 120 ml Output Total 550 ml 1150 ml 0 ml Balance -550 ml -910 ml 120 ml Intake Oral 240 ml 120 ml Output Urine Total 550 ml 1150 ml 0 ml # Bowel Movements 0 0 Objective Remarks Right upper extremity: Clean dry intact splint. Distally good capillary refills and intact sensation. Full extension and flexion of all fingers. Right lower extremity: Incision clean dry and intact with no erythema or drainage. [place] removed last week. dressings distal leg c/d/i. Distally intact sensation strong dorsiflexion plantar flexion of foot Assessment & Plan Assessment and Plan Right open distal radius and ulna shaft fractures with distal radial ulnar joint disruption status post open reduction internal fixation and percutaneous pinning of DRUJ on 04/18/[address] Anaya Maintain splint Nonweightbearing right upper extremity We'll plan on taking down splint next week for removal of sutures of surgical and traumatic wound. Right segmental femur fracture status post intramedullary jodi fixation on [address] German Continue nonweightbearing status Continue dressing changes over incision as needed. Continue to do bacitracin and Adaptic dressings over multiple abrasions over right lower leg. pain control ortho stable f/up with ortho 2 weeks Brant Preciado May 10, 2017 08:04
[2017-05-10] MEDS: GABAPENTIN 100 MG CAP PO SCH ×3 (08:33→17:58)
[2017-05-10] MEDS: DOCUSATE SODIUM 50 MG/SENNA 8.6 MG TAB PO SCH ×2 (08:33→21:00)
[2017-05-10] MEDS: NICOTINE 14 MG/24 HR PATCH T-DERMAL SCH (08:34)
[2017-05-10] MEDS: REMOVE OLD PATCH T-DERMAL SCH (08:34)
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
[2017-05-10] MEDS: ENOXAPARIN SODIUM 40 MG/0.4 ML SYRINGE SQ SCH (12:07)
[2017-05-11] VITALS: BP 114/60; PULSE 78; RESP 16; TEMP 98.1; O2SAT 98
[2017-05-11 04:00] VITALS: BP 127/73; PULSE 82; RESP 16; TEMP 98.5; O2SAT 95
[2017-05-11] MEDS: ACETAMINOPHEN/HYDROcodone 325 MG/10 MG TAB PO PRN ×4 (04:29→21:29)
[2017-05-11] MEDS: TOBRAMYCIN 0.3%/DEXAMETHASONE 0.1% OPHT SUSP 5 ML BTL SCH ×3 (05:59→16:54)
[2017-05-11 08:14] VITALS: BP 125/62; PULSE 69; RESP 16; TEMP 97.4; O2SAT 96
[2017-05-11] MEDS: REMOVE OLD PATCH T-DERMAL SCH (09:00)
[2017-05-11] MEDS: NICOTINE 14 MG/24 HR PATCH T-DERMAL SCH (09:00)
[2017-05-11] MEDS: DOCUSATE SODIUM 50 MG/SENNA 8.6 MG TAB PO SCH ×2 (09:00→20:27)
[2017-05-11] MEDS: GABAPENTIN 100 MG CAP PO SCH ×3 (09:19→16:54)
[2017-05-11] MEDS: SODIUM CHLORIDE 0.9% FLUSH 10 ML FLUSH IV FLUSH SCH ×2 (09:19→20:27)
[2017-05-11 12:00] VITALS: BP 120/70; PULSE 78; RESP 16; TEMP 97.7; O2SAT 97
[2017-05-11] MEDS: ENOXAPARIN SODIUM 40 MG/0.4 ML SYRINGE SQ SCH (12:08)
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
[2017-05-11 16:00] VITALS: BP 126/69; PULSE 89; RESP 20; TEMP 98.6; O2SAT 96
[2017-05-11 19:00] VITALS: BP 121/68; PULSE 86; RESP 16; TEMP 98.6; O2SAT 99
[2017-05-12] VITALS: BP 133/65; PULSE 91; RESP 16; TEMP 98.4; O2SAT 99
[2017-05-12] MEDS: ACETAMINOPHEN/HYDROcodone 325 MG/10 MG TAB PO PRN ×6 (01:09→23:33)
[2017-05-12] MEDS: TOBRAMYCIN 0.3%/DEXAMETHASONE 0.1% OPHT SUSP 5 ML BTL SCH ×5 (01:11→23:35)
[2017-05-12 04:00] VITALS: BP 114/70; PULSE 79; RESP 18; TEMP 97.7; O2SAT 100
[2017-05-12 08:00] VITALS: BP 109/70; PULSE 79; RESP 18; TEMP 98; O2SAT 100
[2017-05-12] MEDS: NICOTINE 14 MG/24 HR PATCH T-DERMAL SCH (09:00)
[2017-05-12] MEDS: REMOVE OLD PATCH T-DERMAL SCH (09:00)
[2017-05-12] MEDS: DOCUSATE SODIUM 50 MG/SENNA 8.6 MG TAB PO SCH ×2 (09:00→20:53)
[2017-05-12] MEDS: GABAPENTIN 100 MG CAP PO SCH ×3 (10:34→19:21)
[2017-05-12] MEDS: SODIUM CHLORIDE 0.9% FLUSH 10 ML FLUSH IV FLUSH SCH ×2 (10:37→20:54)
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
[2017-05-12 12:00] VITALS: BP 134/83; PULSE 72; RESP 20; TEMP 96.5; O2SAT 100
[2017-05-12] MEDS: ENOXAPARIN SODIUM 40 MG/0.4 ML SYRINGE SQ SCH (13:22)
[2017-05-12 16:54] VITALS: BP 123/71; PULSE 98; RESP 20; TEMP 98.6; O2SAT 99
[2017-05-12 19:31] VITALS: BP 135/75; PULSE 68; RESP 19; TEMP 97.7; O2SAT 99
[2017-05-13 00:01] VITALS: BP 112/57; PULSE 84; RESP 18; TEMP 97.5; O2SAT 98
[2017-05-13] MEDS: TOBRAMYCIN 0.3%/DEXAMETHASONE 0.1% OPHT SUSP 5 ML BTL SCH ×4 (05:21→23:34)
[2017-05-13] MEDS: ACETAMINOPHEN/HYDROcodone 325 MG/10 MG TAB PO PRN ×5 (05:21→23:35)
[2017-05-13 07:57] VITALS: BP 120/63; PULSE 78; RESP 16; TEMP 96.9; O2SAT 98
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
[2017-05-13] MEDS: NICOTINE 14 MG/24 HR PATCH T-DERMAL SCH (09:00)
[2017-05-13] MEDS: REMOVE OLD PATCH T-DERMAL SCH (09:00)
[2017-05-13] MEDS: DOCUSATE SODIUM 50 MG/SENNA 8.6 MG TAB PO SCH ×2 (09:00→19:33)
[2017-05-13] MEDS: GABAPENTIN 100 MG CAP PO SCH ×3 (09:43→19:33)
[2017-05-13] MEDS: SODIUM CHLORIDE 0.9% FLUSH 10 ML FLUSH IV FLUSH SCH ×2 (09:49→19:34)
[2017-05-13 11:07] VITALS: BP 136/70; PULSE 89; RESP 16; TEMP 95.6; O2SAT 100
[2017-05-13 15:11] VITALS: BP 137/79; PULSE 83; RESP 16; TEMP 97.9; O2SAT 100
[2017-05-13] MEDS: ENOXAPARIN SODIUM 40 MG/0.4 ML SYRINGE SQ SCH (15:22)
[2017-05-13 20:00] VITALS: BP 118/77; PULSE 84; RESP 18; TEMP 96; O2SAT 100
[2017-05-14] VITALS: BP 122/69; PULSE 87; RESP 18; TEMP 99.1; O2SAT 100
[2017-05-14] MEDS: ACETAMINOPHEN/HYDROcodone 325 MG/10 MG TAB PO PRN ×3 (05:34→17:40)
[2017-05-14] MEDS: TOBRAMYCIN 0.3%/DEXAMETHASONE 0.1% OPHT SUSP 5 ML BTL SCH ×3 (05:34→17:41)
[2017-05-14 07:18] VITALS: BP 120/59; PULSE 79; RESP 18; TEMP 97.9; O2SAT 98
[2017-05-14] MEDS: GABAPENTIN 100 MG CAP PO SCH ×3 (08:10→17:37)
[2017-05-14] MEDS: SODIUM CHLORIDE 0.9% FLUSH 10 ML FLUSH IV FLUSH SCH (08:10)
[2017-05-14] MEDS: DOCUSATE SODIUM 50 MG/SENNA 8.6 MG TAB PO SCH (08:10)
[2017-05-14] MEDS: REMOVE OLD PATCH T-DERMAL SCH (08:11)
[2017-05-14] MEDS: NICOTINE 14 MG/24 HR PATCH T-DERMAL SCH (08:11)
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
[2017-05-14 11:34] VITALS: BP 123/68; PULSE 94; RESP 18; TEMP 98.1; O2SAT 99
[2017-05-14] MEDS: ENOXAPARIN SODIUM 40 MG/0.4 ML SYRINGE SQ SCH (12:11)
[2017-05-14 16:00] VITALS: BP 118/64; PULSE 76; RESP 18; TEMP 98; O2SAT 100
[2017-05-14 19:54] VITALS: BP 134/71; PULSE 86; RESP 18; TEMP 98.4; O2SAT 99
[2017-05-14 23:00] VITALS: BP 125/67; PULSE 70; RESP 18; TEMP 98.2; O2SAT 99
[2017-05-15] MEDS: ACETAMINOPHEN/HYDROcodone 325 MG/5 MG TAB PO PRN ×2 (03:45→06:54)
--- NOTE | 2017-05-15 07:00 | PD.ORT.PN ---
Subjective Subjective Remarks Patient is resting comfortably. He has had difficulty with right upper and right lower extremity. Objective Vitals Vital Signs Date Time Temp Pulse Resp B/P Pulse Ox O2 Delivery O2 Flow Rate FiO2 05/14/17 23:00 98.2 70 18 125/67 99 05/14/17 19:54 98.4 86 18 134/71 99 05/14/17 16:00 98.0 76 18 118/64 100 05/14/17 11:34 98.1 94 18 123/68 99 05/14/17 07:18 97.9 79 18 120/59 98 I/O 05/14/17 05/14/17 05/14/17 05/15/17 05/15/17 05/15/17 07:00 15:00 23:00 07:00 15:00 23:00 Intake Total 480 ml 720 ml 480 ml 360 ml Output Total 450 ml 750 ml 400 ml Balance 480 ml 270 ml -270 ml -40 ml Intake Oral 480 ml 720 ml 480 ml 360 ml Output Urine Total 450 ml 750 ml 400 ml # Voids 2 1 # Bowel Movements 0 1 1 0 Objective Remarks Right upper extremity: Clean dry intact splint. Distally good capillary refills and intact sensation. Sutures and elizabeth removed. Culture obtained from traumatic wound with mild drainage. New splint reapplied by [facility]. Right lower extremity: Incision clean dry and intact with no erythema or drainage. dressings distal leg c/d/i. Distally intact sensation strong dorsiflexion plantar flexion of foot Assessment & Plan Assessment and Plan Right open distal radius and ulna shaft fractures with distal radial ulnar joint disruption status post open reduction internal fixation and percutaneous pinning of DRUJ on 04/18/[address] Anaya [facility] new splint Nonweightbearing right upper extremity We'll plan on taking down splint next week for removal of percutaneous pin and will re-x-ray at that time Right segmental femur fracture status post intramedullary jodi fixation on [address] German Continue nonweightbearing status Continue dressing changes over incision as needed. Continue to do bacitracin and Adaptic dressings over multiple abrasions over right lower leg. pain control ortho stable f/up with ortho 2 weeks Adrien Paris Jr. May 15, 2017 07:00
[2017-05-15 08:00] VITALS: BP 119/62; PULSE 73; RESP 18; TEMP 98.2; O2SAT 100
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
[2017-05-15] MEDS: NICOTINE 14 MG/24 HR PATCH T-DERMAL SCH (09:00)
[2017-05-15] MEDS: REMOVE OLD PATCH T-DERMAL SCH (09:00)
[2017-05-15] MEDS: DOCUSATE SODIUM 50 MG/SENNA 8.6 MG TAB PO SCH ×2 (09:00→22:13)
[2017-05-15] MEDS: GABAPENTIN 100 MG CAP PO SCH ×3 (09:36→18:28)
[2017-05-15] MEDS: SODIUM CHLORIDE 0.9% FLUSH 10 ML FLUSH IV FLUSH SCH ×2 (09:38→22:12)
--- NOTE | 2017-05-15 10:41 | RADRPT ---
EXAM DATE/TIME: 05/15/2017 09:55 [facility] COMPARISON: FOREARM RIGHT (2VWS), April 17, 2017, 15:42. INDICATIONS : Right forearm pain post op; fracture. MEDICAL HISTORY : Right forearm fracture. SURGICAL HISTORY : ORIF right forearm. ENCOUNTER: Subsequent ACUITY: 1 month PAIN SCORE: 8/10 LOCATION: Right forearm. FINDINGS: Status post internal fixation of fractures involving the distal radius and ulna. There is good positi on and alignment of the fracture fragments. Hardware is grossly intact. CONCLUSION: Good position and alignment of the fracture fragments on this postoperative examination. Nickolas Matthew MD on May 15, 2017 at 10:38 Board Certified Radiologist. This report was verified electronically.
--- NOTE | 2017-05-15 10:56 | RADRPT ---
EXAM DATE/TIME: 05/15/2017 10:00 [facility] COMPARISON: FEMUR RIGHT (AP & LAT/2VWS), April 27, 2017, 9:55. INDICATIONS : Right femur pain post op; fracture. MEDICAL HISTORY : Right femur fracture. SURGICAL HISTORY : ORIF right femur. ENCOUNTER: Subsequent ACUITY: 1 month PAIN SCORE: 9/10 LOCATION: Right femur FINDINGS: Today's exam is compared to the prior study. There has been no change in the alignment or position of the fracture fragments compared to the prior study. There continues to be a fragment of the femoral shaft displaced medially. This is unchanged. Hardware is intact. CONCLUSION: No change in alignment or position of the fracture fragments compared to the prior exam. Nickolas Matthew MD on May 15, 2017 at 10:53 Board Certified Radiologist. This report was verified electronically.
[2017-05-15 12:00] VITALS: BP 139/65; PULSE 110; RESP 18; TEMP 96.9; O2SAT 100
[2017-05-15] MEDS: ENOXAPARIN SODIUM 40 MG/0.4 ML SYRINGE SQ SCH (12:41)
[2017-05-15] MEDS: TOBRAMYCIN 0.3%/DEXAMETHASONE 0.1% OPHT SUSP 5 ML BTL SCH ×2 (12:44→18:28)
[2017-05-15] MEDS: ACETAMINOPHEN/HYDROcodone 325 MG/10 MG TAB PO PRN ×2 (15:41→22:12)
[2017-05-15 16:00] VITALS: BP 137/78; PULSE 93; RESP 18; TEMP 98.9; O2SAT 99
[2017-05-15 20:10] VITALS: BP 129/72; PULSE 88; RESP 19; TEMP 98.4; O2SAT 95
[2017-05-16] VITALS (7 sets, daily range): BP systolic 117–136; BP diastolic 56–80; PULSE 77–92; RESP 18–19; TEMP 97.1–98; O2SAT 96–100
[2017-05-16] MEDS: ACETAMINOPHEN/HYDROcodone 325 MG/10 MG TAB PO PRN ×6 (04:13→21:24)
[2017-05-16] MEDS: TOBRAMYCIN 0.3%/DEXAMETHASONE 0.1% OPHT SUSP 5 ML BTL SCH ×4 (04:14→17:38)
[2017-05-16] MEDS: SODIUM CHLORIDE 0.9% FLUSH 10 ML FLUSH IV FLUSH SCH ×2 (09:00→21:21)
[2017-05-16] MEDS: NICOTINE 14 MG/24 HR PATCH T-DERMAL SCH (09:00)
[2017-05-16] MEDS: DOCUSATE SODIUM 50 MG/SENNA 8.6 MG TAB PO SCH ×2 (09:00→21:23)
[2017-05-16] MEDS: REMOVE OLD PATCH T-DERMAL SCH (09:00)
[2017-05-16] MEDS: GABAPENTIN 100 MG CAP PO SCH ×3 (09:25→17:36)
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
[2017-05-16] MEDS: ENOXAPARIN SODIUM 40 MG/0.4 ML SYRINGE SQ SCH (12:39)
[2017-05-17] MEDS: ACETAMINOPHEN/HYDROcodone 325 MG/10 MG TAB PO PRN ×5 (01:28→21:53)
[2017-05-17 03:31] VITALS: BP 122/68; PULSE 80; RESP 18; TEMP 97.1; O2SAT 98
[2017-05-17] MEDS: TOBRAMYCIN 0.3%/DEXAMETHASONE 0.1% OPHT SUSP 5 ML BTL SCH ×4 (06:01→17:59)
[2017-05-17 07:50] VITALS: BP 123/72; PULSE 84; RESP 17; TEMP 97.8; O2SAT 100
[2017-05-17 08:23] LABS: BASOPHIL % 0.7 % (0.0-2.0); EOSINOPHIL # 0.2 TH/MM3 (0-0.4); EOSINOPHIL % 3.3 % (0.0-4.0); HEMO FLAGS DIFF FINAL; LYMPH % 27.7 % (9.0-44.0); LYMPHOCYTE # 1.6 TH/MM3 (1.0-4.8); MEAN CELL VOLUME 92.9 FL (80.0-100.0); MEAN CORPUSCULAR HEMOGLOBIN 31.4 PG (27.0-34.0); MEAN CORPUSCULAR HGB CONC 33.8 % (32.0-36.0); MONO % 16.6 % (0.0-8.0); NEUT % 51.7 % (16.0-70.0); PLATELET COUNT 374 TH/MM3 (150-450); RED BLOOD COUNT 4.19 MIL/MM3 (4.50-5.90); RED CELL DISTRIBUTION WIDTH 13.8 % (11.6-17.2); WHITE BLOOD COUNT 5.8 TH/MM3 (4.0-11.0)
[2017-05-17] MEDS: DOCUSATE SODIUM 50 MG/SENNA 8.6 MG TAB PO SCH ×2 (09:00→20:53)
[2017-05-17] MEDS: REMOVE OLD PATCH T-DERMAL SCH (09:00)
[2017-05-17] MEDS: SODIUM CHLORIDE 0.9% FLUSH 10 ML FLUSH IV FLUSH SCH ×2 (09:00→20:53)
[2017-05-17] MEDS: NICOTINE 14 MG/24 HR PATCH T-DERMAL SCH (09:00)
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
[2017-05-17] MEDS: GABAPENTIN 100 MG CAP PO SCH ×3 (10:03→17:58)
[2017-05-17 11:37] VITALS: BP 126/73; PULSE 88; RESP 17; TEMP 97.2; O2SAT 100
[2017-05-17] MEDS: ENOXAPARIN SODIUM 40 MG/0.4 ML SYRINGE SQ SCH (12:42)
[2017-05-17 15:00] VITALS: BP 135/80; PULSE 93; RESP 17; TEMP 98.2; O2SAT 100
[2017-05-17 19:00] VITALS: BP 125/75; PULSE 97; RESP 16; TEMP 98.5; O2SAT 100
[2017-05-18] VITALS: BP 135/75; PULSE 75; RESP 17; TEMP 98.1; O2SAT 100
[2017-05-18] MEDS: ACETAMINOPHEN/HYDROcodone 325 MG/10 MG TAB PO PRN ×4 (01:39→20:09)
[2017-05-18] MEDS: TOBRAMYCIN 0.3%/DEXAMETHASONE 0.1% OPHT SUSP 5 ML BTL SCH ×4 (01:39→18:11)
[2017-05-18 07:41] VITALS: BP 120/66; PULSE 87; RESP 18; TEMP 97.4; O2SAT 99
[2017-05-18] MEDS: SODIUM CHLORIDE 0.9% FLUSH 10 ML FLUSH IV FLUSH SCH ×2 (09:00→20:13)
[2017-05-18] MEDS: NICOTINE 14 MG/24 HR PATCH T-DERMAL SCH (09:00)
[2017-05-18] MEDS: REMOVE OLD PATCH T-DERMAL SCH (09:00)
[2017-05-18] MEDS: DOCUSATE SODIUM 50 MG/SENNA 8.6 MG TAB PO SCH ×2 (09:30→21:00)
[2017-05-18] MEDS: GABAPENTIN 100 MG CAP PO SCH ×3 (09:30→18:10)
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
[2017-05-18 11:24] VITALS: BP 125/67; PULSE 89; RESP 18; TEMP 98.2; O2SAT 99
[2017-05-18] MEDS: ENOXAPARIN SODIUM 40 MG/0.4 ML SYRINGE SQ SCH (12:21)
[2017-05-18 15:05] VITALS: BP 131/73; PULSE 85; RESP 18; TEMP 98.7; O2SAT 99
[2017-05-18 19:00] VITALS: BP 135/72; PULSE 94; RESP 17; TEMP 98.9; O2SAT 98
[2017-05-19] VITALS: BP 124/74; PULSE 77; RESP 15; TEMP 97.7; O2SAT 100
[2017-05-19] MEDS: ACETAMINOPHEN/HYDROcodone 325 MG/10 MG TAB PO PRN ×5 (00:18→20:34)
[2017-05-19] MEDS: TOBRAMYCIN 0.3%/DEXAMETHASONE 0.1% OPHT SUSP 5 ML BTL SCH ×4 (00:19→17:21)
[2017-05-19 07:41] VITALS: BP 129/72; PULSE 109; RESP 18; TEMP 97; O2SAT 98
[2017-05-19] MEDS: REMOVE OLD PATCH T-DERMAL SCH (09:00)
[2017-05-19] MEDS: NICOTINE 14 MG/24 HR PATCH T-DERMAL SCH (09:00)
[2017-05-19] MEDS: SODIUM CHLORIDE 0.9% FLUSH 10 ML FLUSH IV FLUSH SCH ×2 (09:00→20:34)
[2017-05-19] MEDS: DOCUSATE SODIUM 50 MG/SENNA 8.6 MG TAB PO SCH ×2 (09:00→20:33)
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
[2017-05-19] MEDS: GABAPENTIN 100 MG CAP PO SCH ×3 (10:08→17:21)
[2017-05-19 11:58] VITALS: BP 124/69; PULSE 80; RESP 18; TEMP 98; O2SAT 97
[2017-05-19] MEDS: ENOXAPARIN SODIUM 40 MG/0.4 ML SYRINGE SQ SCH (12:36)
[2017-05-19 15:35] VITALS: BP 125/76; PULSE 83; RESP 18; TEMP 98.2; O2SAT 98
[2017-05-19 20:00] VITALS: BP 142/77; PULSE 97; RESP 19; TEMP 98.3; O2SAT 98
[2017-05-20] VITALS: BP 127/65; PULSE 81; RESP 20; TEMP 98; O2SAT 99
[2017-05-20] MEDS: ACETAMINOPHEN/HYDROcodone 325 MG/10 MG TAB PO PRN ×5 (00:03→22:02)
[2017-05-20] MEDS: TOBRAMYCIN 0.3%/DEXAMETHASONE 0.1% OPHT SUSP 5 ML BTL SCH ×4 (00:04→17:33)
[2017-05-20 07:10] VITALS: BP 116/71; PULSE 94; RESP 17; TEMP 98.1; O2SAT 97
[2017-05-20] MEDS: DOCUSATE SODIUM 50 MG/SENNA 8.6 MG TAB PO SCH ×2 (08:27→22:01)
[2017-05-20] MEDS: GABAPENTIN 100 MG CAP PO SCH ×3 (08:27→17:33)
[2017-05-20] MEDS: NICOTINE 14 MG/24 HR PATCH T-DERMAL SCH (08:27)
[2017-05-20] MEDS: REMOVE OLD PATCH T-DERMAL SCH (08:28)
[2017-05-20] MEDS: SODIUM CHLORIDE 0.9% FLUSH 10 ML FLUSH IV FLUSH SCH (08:28)
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
[2017-05-20 11:09] VITALS: BP 128/71; PULSE 79; RESP 17; TEMP 98.3; O2SAT 100
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
[2017-05-20] MEDS: ENOXAPARIN SODIUM 40 MG/0.4 ML SYRINGE SQ SCH (13:10)
[2017-05-20 16:00] VITALS: BP 125/72; PULSE 88; RESP 17; TEMP 98.1; O2SAT 98
[2017-05-20 19:00] VITALS: BP 132/72; PULSE 85; RESP 17; TEMP 98; O2SAT 98
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
[2017-05-21] VITALS: BP 111/57; PULSE 80; RESP 17; TEMP 98; O2SAT 99
[2017-05-21] MEDS: TOBRAMYCIN 0.3%/DEXAMETHASONE 0.1% OPHT SUSP 5 ML BTL SCH ×5 (01:09→23:29)
[2017-05-21] MEDS: ACETAMINOPHEN/HYDROcodone 325 MG/10 MG TAB PO PRN ×4 (06:40→22:20)
[2017-05-21 07:59] VITALS: BP 125/71; PULSE 88; RESP 16; TEMP 97.5; O2SAT 97
[2017-05-21] MEDS: GABAPENTIN 100 MG CAP PO SCH ×3 (08:31→18:21)
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
[2017-05-21] MEDS: ENOXAPARIN SODIUM 40 MG/0.4 ML SYRINGE SQ SCH (11:48)
[2017-05-21 11:54] VITALS: BP 137/65; PULSE 76; RESP 16; TEMP 97.3; O2SAT 97
[2017-05-21 15:25] VITALS: BP 129/85; PULSE 98; RESP 16; TEMP 97.2; O2SAT 100
[2017-05-21 20:00] VITALS: BP 127/76; PULSE 87; RESP 17; TEMP 98.9; O2SAT 99
[2017-05-21] MEDS: DOCUSATE SODIUM 50 MG/SENNA 8.6 MG TAB PO SCH (21:00)
[2017-05-22] VITALS: BP 127/65; PULSE 83; RESP 16; TEMP 98.2; O2SAT 98
[2017-05-22] MEDS: ACETAMINOPHEN/HYDROcodone 325 MG/10 MG TAB PO PRN ×5 (05:19→23:57)
[2017-05-22] MEDS: TOBRAMYCIN 0.3%/DEXAMETHASONE 0.1% OPHT SUSP 5 ML BTL SCH ×4 (05:19→23:48)
[2017-05-22 07:09] VITALS: BP 121/63; PULSE 81; RESP 17; TEMP 98.2; O2SAT 98
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
[2017-05-22] MEDS: GABAPENTIN 100 MG CAP PO SCH ×3 (09:30→19:42)
[2017-05-22 11:55] VITALS: BP 129/69; PULSE 79; RESP 19; TEMP 97.6; O2SAT 98
[2017-05-22] MEDS: ENOXAPARIN SODIUM 40 MG/0.4 ML SYRINGE SQ SCH (14:26)
[2017-05-22 16:00] VITALS: BP 116/70; PULSE 77; RESP 17; TEMP 98.1; O2SAT 100
[2017-05-22 20:45] VITALS: BP 130/73; PULSE 78; RESP 17; TEMP 98.6; O2SAT 97
[2017-05-22] MEDS: DOCUSATE SODIUM 50 MG/SENNA 8.6 MG TAB PO SCH (21:32)
[2017-05-23 00:35] VITALS: BP 121/72; PULSE 77; RESP 17; TEMP 98; O2SAT 98
[2017-05-23] MEDS: ACETAMINOPHEN/HYDROcodone 325 MG/10 MG TAB PO PRN ×4 (06:19→18:18)
[2017-05-23] MEDS: TOBRAMYCIN 0.3%/DEXAMETHASONE 0.1% OPHT SUSP 5 ML BTL SCH ×3 (06:19→18:20)
[2017-05-23 07:33] VITALS: BP 122/67; PULSE 83; RESP 17; TEMP 98.1; O2SAT 97
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
[2017-05-23] MEDS: GABAPENTIN 100 MG CAP PO SCH ×4 (10:10→21:40)
[2017-05-23 11:21] VITALS: BP 130/76; PULSE 98; RESP 17; TEMP 98.2; O2SAT 98
[2017-05-23] MEDS: ENOXAPARIN SODIUM 40 MG/0.4 ML SYRINGE SQ SCH (11:57)
--- NOTE | 2017-05-23 13:59 | PD.ORT.PN ---
Subjective Subjective Remarks 5w1d s/p ORIF right wrist with DRUJ pinning doing well. pain controlled. Objective Vitals Vital Signs Date Time Temp Pulse Resp B/P Pulse Ox O2 Delivery O2 Flow Rate FiO2 05/23/17 11:21 98.2 98 17 130/76 98 05/23/17 07:33 98.1 83 17 122/67 97 05/23/17 00:35 98.0 77 17 121/72 98 05/22/17 20:45 98.6 78 17 130/73 97 05/22/17 16:00 98.1 77 17 116/70 100 I/O 05/22/17 05/22/17 05/22/17 05/23/17 05/23/17 05/23/17 07:00 15:00 23:00 07:00 15:00 23:00 Intake Total 720 ml 1200 ml 440 ml 660 ml Output Total 800 ml 600 ml 700 ml Balance -80 ml 1200 ml -160 ml -40 ml Intake Oral 720 ml 1200 ml 440 ml 660 ml Output Urine Total 800 ml 600 ml 700 ml # Voids 3 # Bowel Movements 1 0 0 Objective Remarks RUE: splint removed. pin site clean. incision healed. full sensation to median/ ulnar nerve. stiffness of fingers. Assessment & Plan Assessment and Plan 1) Right open distal radius and ulna shaft fractures with distal radial ulnar joint disruption status post open reduction internal fixation and percutaneous pinning of DRUJ on 04/18/[address] Anaya -pin removed at bedside today -wound dressed with xeroform/4x4/VANNESSA -[employer] for short arm wrist brace -NWB -work with therapy on wrist and finger motion. -new xrays today now that pin removed. 2) Right segmental femur fracture status post intramedullary jodi fixation on 04/[address] German Continue nonweightbearing status Continue dressing changes over incision as needed. Continue to do bacitracin and Adaptic dressings over multiple abrasions over right lower leg. pain control ortho stable f/up with ortho 2 weeks Noé Ness May 23, 2017 13:59
--- NOTE | 2017-05-23 14:50 | RADRPT ---
EXAM DATE/TIME: 05/23/2017 13:59 [facility] COMPARISON: FOREARM RIGHT (2VWS), May 15, 2017, 9:55. FEMUR RIGHT (AP & LAT/2VWS), May 15, 2017, 10:00. INDICATIONS : Evaluate fracture. MEDICAL HISTORY : None. SURGICAL HISTORY : ORIF right forearm fracture. ENCOUNTER: Subsequent ACUITY: 3 weeks PAIN SCORE: 8/10 LOCATION: Right upper extremity FINDINGS: AP and lateral views of the left forearm were obtained and demonstrate screw plate fixation devices t ransfixing the distal radial and ulnar fractures in near-anatomic ali There is soft tissue swelling.g nment. The previously noted K wire extending across the distal radius and ulna has been removed. CONCLUSION: Stable appearance of the previously noted K wire on the distal radius and ulna. The f ractures remain in near-anatomic alignment. Adrien León MD on May 23, 2017 at 14:46 Board Certified Radiologist. This report was verified electronically.
[2017-05-23 15:29] VITALS: BP 118/68; PULSE 89; RESP 17; TEMP 98; O2SAT 96
[2017-05-23 20:05] VITALS: BP 132/71; PULSE 94; RESP 17; TEMP 98.8; O2SAT 96
[2017-05-23] MEDS: DOCUSATE SODIUM 50 MG/SENNA 8.6 MG TAB PO SCH (21:40)
[2017-05-24] MEDS: TOBRAMYCIN 0.3%/DEXAMETHASONE 0.1% OPHT SUSP 5 ML BTL SCH ×4 (00:31→18:50)
[2017-05-24] MEDS: ACETAMINOPHEN/HYDROcodone 325 MG/10 MG TAB PO PRN ×5 (00:32→22:36)
[2017-05-24 00:40] VITALS: BP 121/63; PULSE 97; RESP 17; TEMP 98; O2SAT 98
[2017-05-24 07:31] VITALS: BP 121/75; PULSE 86; RESP 18; TEMP 97.4; O2SAT 99
[2017-05-24] MEDS: GABAPENTIN 100 MG CAP PO SCH ×3 (09:44→20:18)
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
[2017-05-24 11:27] VITALS: BP 136/72; PULSE 91; RESP 18; TEMP 97.6; O2SAT 99
[2017-05-24] MEDS: ENOXAPARIN SODIUM 40 MG/0.4 ML SYRINGE SQ SCH (12:59)
[2017-05-24 15:40] VITALS: BP 126/70; PULSE 84; RESP 18; TEMP 97.5; O2SAT 99
[2017-05-24] MEDS: DOCUSATE SODIUM 50 MG/SENNA 8.6 MG TAB PO SCH (20:18)
[2017-05-24 20:25] VITALS: BP 131/77; PULSE 93; RESP 16; TEMP 98.1; O2SAT 98
[2017-05-25 00:30] VITALS: BP 135/78; PULSE 93; RESP 17; TEMP 97.9; O2SAT 99
[2017-05-25] MEDS: ACETAMINOPHEN/HYDROcodone 325 MG/10 MG TAB PO PRN ×5 (02:53→23:17)
[2017-05-25] MEDS: TOBRAMYCIN 0.3%/DEXAMETHASONE 0.1% OPHT SUSP 5 ML BTL SCH ×5 (07:10→23:18)
[2017-05-25 07:45] VITALS: BP 122/71; PULSE 78; RESP 17; TEMP 96.6; O2SAT 100
[2017-05-25] MEDS: GABAPENTIN 100 MG CAP PO SCH ×3 (08:51→20:36)
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
[2017-05-25 11:35] VITALS: BP 122/76; PULSE 85; RESP 17; TEMP 98.1; O2SAT 98
[2017-05-25] MEDS: ENOXAPARIN SODIUM 40 MG/0.4 ML SYRINGE SQ SCH (12:26)
[2017-05-25 15:48] VITALS: BP 133/82; PULSE 85; RESP 17; TEMP 98.4; O2SAT 100
[2017-05-25 20:30] VITALS: BP 139/74; PULSE 90; RESP 16; TEMP 98.5; O2SAT 99
[2017-05-25] MEDS: DOCUSATE SODIUM 50 MG/SENNA 8.6 MG TAB PO SCH (20:36)
[2017-05-26 00:35] VITALS: BP 131/69; PULSE 82; RESP 16; TEMP 98.3; O2SAT 99
[2017-05-26] MEDS: ACETAMINOPHEN/HYDROcodone 325 MG/10 MG TAB PO PRN (05:21)
[2017-05-26] MEDS: TOBRAMYCIN 0.3%/DEXAMETHASONE 0.1% OPHT SUSP 5 ML BTL SCH ×3 (05:23→18:44)
[2017-05-26 08:00] VITALS: BP 113/68; PULSE 78; RESP 18; TEMP 97.4; O2SAT 99
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
[2017-05-26] MEDS: GABAPENTIN 100 MG CAP PO SCH ×3 (10:05→22:56)
[2017-05-26] MEDS: oxyCODONE/ACETAMINOPHEN 10 MG/325 MG TAB PO PRN ×3 (10:09→20:19)
[2017-05-26 12:00] VITALS: BP 139/81; PULSE 85; RESP 20; TEMP 98.6; O2SAT 99
[2017-05-26] MEDS: ENOXAPARIN SODIUM 40 MG/0.4 ML SYRINGE SQ SCH (12:51)
[2017-05-26 16:00] VITALS: BP 118/83; PULSE 93; RESP 18; TEMP 97.3; O2SAT 97
[2017-05-26 20:35] VITALS: BP 141/81; PULSE 93; RESP 18; TEMP 98.9; O2SAT 99
[2017-05-26 20:49] LABS: AUTOMATED NEUTROPHIL # 3.3 TH/MM3 (1.8-7.7); BASOPHIL # 0.1 TH/MM3 (0-0.2); BASOPHIL % 1.2 % (0.0-2.0); EOSINOPHIL # 0.2 TH/MM3 (0-0.4); HEMATOCRIT 44.5 % (39.0-51.0); HEMO FLAGS DIFF FINAL; LYMPH % 39.1 % (9.0-44.0); MEAN CELL VOLUME 91.8 FL (80.0-100.0); MEAN CORPUSCULAR HEMOGLOBIN 29.9 PG (27.0-34.0); MEAN CORPUSCULAR HGB CONC 32.6 % (32.0-36.0); MONO % 14.8 % (0.0-8.0); NEUT % 42.9 % (16.0-70.0); PLATELET COUNT 351 TH/MM3 (150-450); RED BLOOD COUNT 4.85 MIL/MM3 (4.50-5.90); RED CELL DISTRIBUTION WIDTH 13.5 % (11.6-17.2); WHITE BLOOD COUNT 7.7 TH/MM3 (4.0-11.0)
[2017-05-26 21:03] LABS: ANION GAP 5 MEQ/L (5-15); AST (GOT) 19 U/L (15-37); BICARBONATE 29.1 MEQ/L (21.0-32.0); BLOOD UREA NITROGEN 11 MG/DL (7-18); CHLORIDE 102 MEQ/L (98-107); GLOMERULAR FILTRATION RATE 107 ML/MIN (>89); SODIUM (NA) 136 MEQ/L (136-145)
[2017-05-26 21:04] LABS: ALT (GPT) 28 U/L (12-78)
[2017-05-26 21:06] LABS: ALKALINE PHOSPHATASE 86 U/L (45-117); TOTAL BILIRUBIN ADULT 0.2 MG/DL (0.2-1.0)
[2017-05-26] MEDS: DOCUSATE SODIUM 50 MG/SENNA 8.6 MG TAB PO SCH (22:57)
[2017-05-27 00:23] VITALS: BP 116/68; PULSE 85; RESP 18; TEMP 98.5; O2SAT 98
[2017-05-27] MEDS: oxyCODONE/ACETAMINOPHEN 10 MG/325 MG TAB PO PRN ×5 (03:37→20:22)
[2017-05-27] MEDS: TOBRAMYCIN 0.3%/DEXAMETHASONE 0.1% OPHT SUSP 5 ML BTL SCH ×4 (06:00→18:37)
[2017-05-27 07:42] VITALS: BP 119/66; PULSE 87; RESP 18; TEMP 96.5; O2SAT 99
[2017-05-27] MEDS: GABAPENTIN 100 MG CAP PO SCH ×3 (07:59→20:22)
[2017-05-27 11:34] VITALS: BP 129/81; PULSE 86; RESP 18; TEMP 96.2; O2SAT 97
[2017-05-27] MEDS: ENOXAPARIN SODIUM 40 MG/0.4 ML SYRINGE SQ SCH (12:15)
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
[2017-05-27 16:00] VITALS: BP 135/74; PULSE 94; RESP 18; TEMP 97.6; O2SAT 99
[2017-05-27] MEDS: DOCUSATE SODIUM 50 MG/SENNA 8.6 MG TAB PO SCH (20:22)
[2017-05-27 20:36] VITALS: BP 137/86; PULSE 89; RESP 17; TEMP 97; O2SAT 99
[2017-05-28 00:22] VITALS: BP 139/74; PULSE 91; RESP 17; TEMP 98.5; O2SAT 100
[2017-05-28] MEDS: oxyCODONE/ACETAMINOPHEN 10 MG/325 MG TAB PO PRN ×6 (00:27→21:11)
[2017-05-28] MEDS: TOBRAMYCIN 0.3%/DEXAMETHASONE 0.1% OPHT SUSP 5 ML BTL SCH ×4 (00:28→18:02)
[2017-05-28 08:00] VITALS: BP 117/76; PULSE 79; RESP 16; TEMP 96.5; O2SAT 100
[2017-05-28] MEDS: GABAPENTIN 100 MG CAP PO SCH ×3 (08:14→21:10)
[2017-05-28 12:00] VITALS: BP 124/71; PULSE 87; RESP 16; TEMP 97.4; O2SAT 100
[2017-05-28] MEDS: ENOXAPARIN SODIUM 40 MG/0.4 ML SYRINGE SQ SCH (12:45)
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
[2017-05-28 16:00] VITALS: BP 131/79; PULSE 86; RESP 16; TEMP 96.7; O2SAT 99
[2017-05-28 20:35] VITALS: BP 139/80; PULSE 98; RESP 18; TEMP 97.3; O2SAT 100
[2017-05-28] MEDS: DOCUSATE SODIUM 50 MG/SENNA 8.6 MG TAB PO SCH (21:10)
[2017-05-29 00:30] VITALS: BP 123/69; PULSE 90; RESP 18; TEMP 98.4; O2SAT 99
[2017-05-29] MEDS: TOBRAMYCIN 0.3%/DEXAMETHASONE 0.1% OPHT SUSP 5 ML BTL SCH ×4 (00:46→18:00)
[2017-05-29] MEDS: oxyCODONE/ACETAMINOPHEN 10 MG/325 MG TAB PO PRN ×2 (00:57→07:47)
[2017-05-29] MEDS: GABAPENTIN 100 MG CAP PO SCH ×3 (07:47→22:53)
[2017-05-29 08:00] VITALS: BP 121/61; PULSE 79; RESP 16; TEMP 97.5; O2SAT 100
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
[2017-05-29] MEDS: ENOXAPARIN SODIUM 40 MG/0.4 ML SYRINGE SQ SCH (12:17)
[2017-05-29] MEDS: oxyCODONE/ACETAMINOPHEN 10 MG/325 MG TAB PO SCH ×3 (12:17→19:34)
[2017-05-29 16:30] VITALS: BP 131/79; PULSE 97; RESP 16; TEMP 97.7; O2SAT 100
[2017-05-29 20:10] VITALS: BP 126/76; PULSE 98; RESP 17; TEMP 98.7; O2SAT 97
[2017-05-29] MEDS: DOCUSATE SODIUM 50 MG/SENNA 8.6 MG TAB PO SCH (22:56)
[2017-05-29 23:50] VITALS: BP 116/63; PULSE 88; RESP 17; TEMP 97.6; O2SAT 97
[2017-05-30] MEDS: oxyCODONE/ACETAMINOPHEN 10 MG/325 MG TAB PO SCH ×6 (04:44→20:03)
[2017-05-30] MEDS: TOBRAMYCIN 0.3%/DEXAMETHASONE 0.1% OPHT SUSP 5 ML BTL SCH ×4 (04:45→16:53)
[2017-05-30 04:50] VITALS: BP 120/70; PULSE 80; RESP 16; TEMP 97.3; O2SAT 97
[2017-05-30 08:00] VITALS: BP 139/76; PULSE 85; RESP 18; TEMP 96; O2SAT 97
[2017-05-30] MEDS: GABAPENTIN 100 MG CAP PO SCH ×3 (09:21→21:59)
[2017-05-30 12:00] VITALS: BP 125/79; PULSE 82; RESP 18; TEMP 96.9; O2SAT 100
[2017-05-30] MEDS: ENOXAPARIN SODIUM 40 MG/0.4 ML SYRINGE SQ SCH (13:15)
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
[2017-05-30 16:00] VITALS: BP 121/64; PULSE 88; RESP 18; TEMP 97.1; O2SAT 100
[2017-05-30 20:05] VITALS: BP 127/75; PULSE 91; RESP 17; TEMP 97; O2SAT 100
[2017-05-30] MEDS: DOCUSATE SODIUM 50 MG/SENNA 8.6 MG TAB PO SCH (21:58)
[2017-05-31] MEDS: oxyCODONE/ACETAMINOPHEN 10 MG/325 MG TAB PO SCH ×6 (00:29→19:45)
[2017-05-31] MEDS: TOBRAMYCIN 0.3%/DEXAMETHASONE 0.1% OPHT SUSP 5 ML BTL SCH ×4 (00:30→16:34)
[2017-05-31 01:00] VITALS: BP 124/77; PULSE 88; RESP 17; TEMP 96.6; O2SAT 100
[2017-05-31 04:30] VITALS: BP_SYST 125; BP_SYST 126; BP_DIAS 57; BP_DIAS 69; PULSE 108; PULSE 77; RESP 16; RESP 17; TEMP 97; TEMP 98.9; O2SAT 100; O2SAT 96
[2017-05-31 08:00] VITALS: BP 125/60; PULSE 76; RESP 18; TEMP 97.4; O2SAT 99
[2017-05-31] MEDS: GABAPENTIN 100 MG CAP PO SCH ×3 (09:06→22:09)
[2017-05-31] MEDS: ENOXAPARIN SODIUM 40 MG/0.4 ML SYRINGE SQ SCH (11:50)
[2017-05-31 11:51] VITALS: BP 135/78; PULSE 88; RESP 17; TEMP 96.3; O2SAT 98
--- NOTE | 2017-05-31 12:21 | PD.ORT.PN ---
Subjective Subjective Remarks Objective Vitals Vital Signs Date Time Temp Pulse Resp B/P (MAP) Pulse Ox O2 Delivery O2 Flow Rate FiO2 05/31/17 11:51 96.3 88 17 135/78 (97) 98 05/31/17 09:13 Room Air 05/31/17 08:00 97.4 76 18 125/60 (81) 99 05/31/17 04:30 97.0 77 16 126/69 (88) 100 05/31/17 01:00 96.6 88 17 124/77 (93) 100 05/30/17 20:05 97.0 91 17 127/75 (92) 100 05/30/17 16:00 97.1 88 18 121/64 (83) 100 I/O 05/30/17 05/30/17 05/30/17 05/31/17 05/31/17 05/31/17 06:59 14:59 22:59 06:59 14:59 22:59 Intake Total 480 ml 620 ml 1160 ml 660 ml Output Total 800 ml 200 ml Balance -320 ml 620 ml 1160 ml 460 ml Intake Oral 480 ml 620 ml 1160 ml 660 ml Output Urine Total 800 ml 200 ml # Voids 2 5 # Bowel Movements 0 1 0 0 Assessment & Plan Assessment and Plan 1) Right open distal radius and ulna shaft fractures with distal radial ulnar joint disruption status post open reduction internal fixation and percutaneous pinning of DRUJ on 04/18/[address] Anaya -pin removed at bedside today -wound dressed with xeroform/4x4/VANNESSA -orthotech for short arm wrist brace -NWB -work with therapy on wrist and finger motion. -new xrays today now that pin removed. 2) Right segmental femur fracture status post intramedullary jodi fixation on 04/[address] German Continue nonweightbearing status Continue to do bacitracin and Adaptic dressings over multiple abrasions over right lower leg. pain control ortho stable f/up with ortho 2 weeks Brant Preciado May 31, 2017 12:21
--- NOTE | 2017-05-31 15:35 | HHI.DCPOC ---
Discharge Care Plan Diagnosis: (1) Multiple fractures (2) Postoperative pain (3) History of closed Colles' fracture (4) Closed fracture of midcervical section of femur (5) Blood in right ear canal Goals to Promote Your Health * To prevent worsening of your condition and complications * To maintain your health at the optimal level Directions to Meet Your Goals Take your medications as prescribed Follow your dietary instruction Follow activity as directed Keep your appointments as scheduled Take your immunizations and boosters as scheduled If your symptoms worsen call your PCP, if no PCP go to Urgent Care Center or Emergency Room Smoking is Dangerous to Your Health. Avoid second hand smoke Call the 24-hour hour crisis hotline for domestic abuse at Kay Singh MD R1 May 31, 2017 15:35
[2017-05-31] MEDS ORDERED: WHEEMIS3 (15:40)
[2017-05-31] MEDS ORDERED: OXYC1TAB36 PO (16:10)
[2017-05-31] MEDS ORDERED: SENN1TAB PO (16:10)
[2017-05-31] MEDS ORDERED: TOBRO (16:10)
--- NOTE | 2017-05-31 16:15 | HHI.FF ---
Face to Face Verification Diagnosis: (1) Postoperative pain (2) Status post fracture of femur (3) DRUJ (distal radioulnar joint) instability, post-traumatic Physical Therapy Order: Evaluate and Treat, Improve ambulation, Strength and gait training Occupational Therapy Order: Evaluate and Treat, Gross motor coordination, Fine motor coordination I have seen patient Faiza Haynes on 05/31/17. My clinical findings support the need for the requested home health care services because: Ltd mobility - disease progression Deconditioned w/ increased weakness Limited ability to care for self I certify that my clinical findings support that this patient is homebound because: Post-op weakness Unsteady gait/balance [id number] bed/chair Asad Pang MD, R2 May 31, 2017 16:15
[2017-05-31] MEDS ORDERED: GABA100C4 PO (16:17)
[2017-05-31 16:34] VITALS: BP 137/77; PULSE 102; RESP 16; TEMP 97.3; O2SAT 100
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
[2017-05-31] MEDS: DOCUSATE SODIUM 50 MG/SENNA 8.6 MG TAB PO SCH (19:45)
[2017-05-31 20:35] VITALS: BP 141/80; PULSE 89; RESP 18; TEMP 96.6; O2SAT 100
[2017-06-01 00:35] VITALS: BP 124/76; PULSE 84; RESP 18; TEMP 97.5; O2SAT 100
[2017-06-01] MEDS: oxyCODONE/ACETAMINOPHEN 10 MG/325 MG TAB PO SCH ×4 (05:12→15:15)
[2017-06-01] MEDS: TOBRAMYCIN 0.3%/DEXAMETHASONE 0.1% OPHT SUSP 5 ML BTL SCH ×3 (06:00→11:02)
[2017-06-01 07:40] VITALS: BP 133/67; PULSE 83; RESP 17; TEMP 97.3; O2SAT 98
[2017-06-01] MEDS: GABAPENTIN 100 MG CAP PO SCH ×2 (08:19→15:15)
[2017-06-01] MEDS: ENOXAPARIN SODIUM 40 MG/0.4 ML SYRINGE SQ SCH (11:01)
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
[2017-06-01 11:02] VITALS: BP 130/89; PULSE 91; RESP 17; TEMP 97.5; O2SAT 100
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
[2017-06-01 15:12] VITALS: BP 123/71; PULSE 92; RESP 18; TEMP 95.7; O2SAT 99
[2017-06-01] MEDS ORDERED: OXYC1TAB63 PO (15:25)
[2017-06-05] MEDS ORDERED: GABA100C4 PO (11:05)
== END 2017-06-01 17:56 | disposition home or self-care (01) ==
LOC: NEPE 08:26 → NEDA 10:08 → OBSVTOIN 10:56 → INTOOBSV 10:56 → HOCA 14:29 → N06B 05-10 01:06
PROVIDERS: ADMIT Family Medicine; ATTEND Family Medicine
DX: G89.18 Other acute postprocedural pain (principal); R20.0 Anesthesia of skin; R20.2 Paresthesia of skin; M62.838 Other muscle spasm; R63.0 Anorexia; R10.30 Lower abdominal pain, unspecified; R05 Cough; R61 Generalized hyperhidrosis; R50.9 Fever, unspecified; N50.819 Testicular pain, unspecified; S52.531D Colles' fracture of right radius, subsequent encounter for closed fracture with routine healing; S72.001D Fracture of unspecified part of neck of right femur, subsequent encounter for closed fracture with routine healing; S62.327D Displaced fracture of shaft of fifth metacarpal bone, left hand, subsequent encounter for fracture with routine healing; S62.324D Displaced fracture of shaft of fourth metacarpal bone, right hand, subsequent encounter for fracture with routine healing; S52.201D Unspecified fracture of shaft of right ulna, subsequent encounter for closed fracture with routine healing; S80.812D Abrasion, left lower leg, subsequent encounter; M25.50 Pain in unspecified joint; R26.89 Other abnormalities of gait and mobility; E86.0 Dehydration; R00.0 Tachycardia, unspecified; H92.21 Otorrhagia, right ear; I95.1 Orthostatic hypotension; R42 Dizziness and giddiness; R11.0 Nausea; D64.9 Anemia, unspecified; M50.321 Other cervical disc degeneration at C4-C5 level; M50.323 Other cervical disc degeneration at C6-C7 level; R29.890 Loss of height; E66.3 Overweight; F17.210 Nicotine dependence, cigarettes, uncomplicated; V86.99XD Unspecified occupant of other special all-terrain or other off-road motor vehicle injured in nontraffic accident, subsequent encounter
CPT/HCPCS: 71010; 73090; 73100; 73110; 73552; 76937; 80048; 80053; 81001; 85007; 85025; 85027; 87070; 87107; 87153; 87205; 93971; 94150; 96361; 96372; 96374; 97110; 97116; 97162; 97167; 97530; 97535; 99285; G0378; J1650; J2270; J7030; L3908